=== PATIENT | female | born 1930 | race Caucasian/White ===

== ENCOUNTER 2016-10-13 10:50 | Emergency (ER) | payer MEDICARE, OTHER ==
[~2016-10-13] VITALS: Ht 160 cm; Wt 54.4 kg
[2016-10-13] MEDS ORDERED: DIPH25TA17 PO (11:06)
[2016-10-13] MEDS ORDERED: XANA0.5T PO (11:06)
[2016-10-13] MEDS ORDERED: AMLO10TA2 PO (11:06)
[2016-10-13] MEDS ORDERED: PERC10TA17 PO (11:06)
[2016-10-13] MEDS ORDERED: TRAM50TA2 PO (11:06)
[2016-10-13] MEDS ORDERED: NS 500 ML IV ONE (11:45)
[2016-10-13] MEDS ORDERED: ONDANSETRON 4MG/2ML VIAL (J2405) IV ONE (11:45)
[2016-10-13 12:45] LABS: BASO % 0.5 % (0.0-1.0); EOS # 0.3 K/mm3 (0.0-0.50); EOS % 3.4 % (0.0-3.0); LARGE UNSTAINED CELL # 0.1 K/mm3 (0.0-0.4); LARGE UNSTAINED CELL % 1.5 % (0.0-4.0); LYMPH % 10.7 % (24.0-44.0); MEAN CORPUSCULAR HEMOGLOBIN 30.5 pg (27.0-33.0); MEAN CORPUSCULAR HGB CONC 33.7 g/dl (32.0-36.5); MEAN CORPUSCULAR VOLUME 90.5 fl (80.0-96.0); MONO # 0.5 K/mm3 (0.0-0.8); MONO % 6.5 % (0.0-5.0); NEUTROPHILS # 6.4 K/mm3 (1.8-7.7); NEUTROPHILS % 77.4 % (36.0-66.0); PLATELET COUNT, AUTOMATED 215 k/mm3 (150-450); RED CELL DISTRIBUTION WIDTH 13.5 % (11.5-14.5); WHITE BLOOD COUNT 8.2 K/mm3 (4.0-10.0)
[2016-10-13 12:57] LABS: ALBUMIN 3.9 GM/DL (3.2-5.2); ALBUMIN/GLOBULIN RATIO 1.39 (1.00-1.93); ALKALINE PHOSPHATASE 101 U/L (45-117); ALT/SGPT 51 U/L (12-78); AMYLASE 37 U/L (25-115); ANION GAP 9 MEQ/L (8-16); AST/SGOT 45 U/L (15-37); BILIRUBIN,DIRECT 0.2 MG/DL (0.0-0.2); BILIRUBIN,TOTAL 0.4 MG/DL (0.2-1.0); BLOOD UREA NITROGEN 39 MG/DL (7-18); CALCIUM LEVEL 9.1 MG/DL (8.8-10.2); CARBON DIOXIDE LEVEL 27 MEQ/L (21-32); CHLORIDE LEVEL 105 MEQ/L (98-107); CREATININE FOR GFR 0.88 MG/DL (0.55-1.02); GLOMERULAR FILTRATION RATE > 60.0 (>32); GLUCOSE, FASTING 93 MG/DL (83-110); POTASSIUM SERUM 4.2 MEQ/L (3.5-5.1); SODIUM LEVEL 141 MEQ/L (136-145); TOTAL PROTEIN 6.7 GM/DL (6.4-8.2)
--- NOTE | 2016-10-13 13:58 | REP ---
Clinical: Abdominal pain and vomiting. Comparison: None. Findings: Right kidney demonstrates an extrarenal pelvis and grade IV/V hydronephrosis which may reflect chronic ureteropelvic junction obstruction. The kidneys are otherwise relatively normal in appearance and there are no renal or ureteral calculi, perinephric stranding, obvious cyst or mass lesion. Liver demonstrates compensatory biliary ductal dilatation secondary to prior cholecystectomy. Spleen, pancreas, and adrenal glands are relatively normal. 1.2 cm left adrenal adenoma noted. The enteric system demonstrates areas of prior surgery and reanastomosis and there is no evidence for acute obstruction or obvious inflammatory process. Few scattered sigmoid diverticula noted without acute diverticulitis. Pelvis demonstrates normal bladder and evidence for prior hysterectomy. No ascites. No free air. No obvious significant adenopathy. Atherosclerotic changes to the vasculature noted without aneurysm. Musculoskeletal structures demonstrate degenerative changes. Lung bases are clear. Impression: 1. Marked right hydronephrosis may reflect ureteropelvic junction obstruction. Kidneys are otherwise normal and without nephroureterolithiasis. 2. No evidence for bowel obstruction or acute inflammatory process. 3. Chronic changes as described above. Signed by Scot Reyes MD 10/13/2016 01:50 P
[2016-10-13 14:43] VITALS: BP 123/56
[2016-10-13] MEDS ORDERED: ZOFR4TAB3 PO (15:12)
== END 2016-10-13 15:26 | disposition home or self-care (01) ==
LOC: M ED 12:16
DX: N13.30 Unspecified hydronephrosis (principal); R11.2 Nausea with vomiting, unspecified; R19.7 Diarrhea, unspecified; Z88.0 Allergy status to penicillin; Z88.1 Allergy status to other antibiotic agents; Z79.899 Other long term (current) drug therapy; Z79.891 Long term (current) use of opiate analgesic; Z87.19 Personal history of other diseases of the digestive system

== ENCOUNTER → 2016-10-14 | Outpatient (REF) | payer MEDICARE, OTHER ==
[~2016-10-14] MED LIST: ADVI200T PO; AMLO10TA2 PO; ATEN50TA2 PO; DIPH2.5T14 PO; DIPH25TA17 PO; FLAG500T PO; LISI-538 PO; NORC10TA2 PO; ONDA4TAB6 SL; PANT40TA2 PO; PERC10TA17 PO; TRAM50TA2 PO; VITMTA PO; XANA0.5T PO; ZOFR20TA PO; ZOFR4TAB3 PO
== END ==
LOC: M LAB REF 09:14
PROVIDERS: ATTEND Physician Assistant Medical
DX: R19.7 Diarrhea, unspecified (principal)

== ENCOUNTER 2016-10-15 20:24 | Inpatient (IN) | payer MEDICARE, OTHER ==
[~2016-10-15] VITALS: Ht 160 cm; Wt 58.5 kg
[~2016-10-15 20:24] MED LIST changes: -ADVI200T PO; -ATEN50TA2 PO; -DIPH2.5T14 PO; -FLAG500T PO; -LISI-538 PO; -NORC10TA2 PO; -ONDA4TAB6 SL; -PANT40TA2 PO; -VITMTA PO; -ZOFR20TA PO
[2016-10-15] MEDS ORDERED: ATEN50TA2 PO (20:51)
[2016-10-15] MEDS ORDERED: DIPH2.5T14 PO (20:51)
[2016-10-15] MEDS ORDERED: PANT40TA2 PO ×2 (20:51→23:20)
[2016-10-15] MEDS: traMADol 50 MG TAB PO SCH (21:00)
[2016-10-15] MEDS: ALPRAZolam 0.25 MG TAB PO SCH (21:00)
[2016-10-15] MEDS ORDERED: ONDANSETRON 4MG/2ML VIAL (J2405) IV ONE (21:30)
[2016-10-15] MEDS ORDERED: NS 500 ML IV ONE (21:30)
[2016-10-15] MEDS ORDERED: metroNIDAZOLE 500 MG in APPROPRIATE DILUENT 1 EA IV ONE (21:30)
[2016-10-15 22:40] LABS: BASO % 0.6 % (0.0-1.0); EOS # 0.3 K/mm3 (0.0-0.50); EOS % 5.4 % (0.0-3.0); LARGE UNSTAINED CELL # 0.1 K/mm3 (0.0-0.4); LARGE UNSTAINED CELL % 1.6 % (0.0-4.0); LYMPH # 0.8 K/mm3 (1.5-4.5); LYMPH % 16.1 % (24.0-44.0); MEAN CORPUSCULAR HEMOGLOBIN 30.3 pg (27.0-33.0); MEAN CORPUSCULAR HGB CONC 32.9 g/dl (32.0-36.5); MONO # 0.3 K/mm3 (0.0-0.8); MONO % 5.3 % (0.0-5.0); NEUTROPHILS # 3.6 K/mm3 (1.8-7.7); PLATELET COUNT, AUTOMATED 203 k/mm3 (150-450); WHITE BLOOD COUNT 5.1 K/mm3 (4.0-10.0)
[2016-10-15] MEDS ORDERED: LABETALOL HCL 100 MG/20 ML VIAL IV STA (22:43)
[2016-10-15 23:04] LABS: ALBUMIN 3.7 GM/DL (3.2-5.2); ALBUMIN/GLOBULIN RATIO 1.23 (1.00-1.93); ALKALINE PHOSPHATASE 102 U/L (45-117); ALT/SGPT 35 U/L (12-78); ANION GAP 8 MEQ/L (8-16); AST/SGOT 22 U/L (15-37); BILIRUBIN,DIRECT < 0.1 MG/DL (0.0-0.2); BILIRUBIN,TOTAL 0.3 MG/DL (0.2-1.0); BLOOD UREA NITROGEN 18 MG/DL (7-18); CALCIUM LEVEL 8.7 MG/DL (8.8-10.2); CARBON DIOXIDE LEVEL 30 MEQ/L (21-32); CHLORIDE LEVEL 103 MEQ/L (98-107); CREATININE FOR GFR 0.58 MG/DL (0.55-1.02); GLOMERULAR FILTRATION RATE > 60.0 (>32); GLUCOSE, FASTING 114 MG/DL (83-110); POTASSIUM SERUM 3.5 MEQ/L (3.5-5.1); SODIUM LEVEL 141 MEQ/L (136-145); TOTAL PROTEIN 6.7 GM/DL (6.4-8.2)
[2016-10-15] MEDS ORDERED: NORC10TA2 PO (23:19)
[2016-10-15] MEDS ORDERED: VITMTA PO (23:20)
[2016-10-15] MEDS ORDERED: ADVI200T PO (23:20)
[2016-10-15] MEDS ORDERED: ONDA4TAB6 SL (23:20)
[2016-10-15] MEDS ORDERED: IBUPROFEN 400 MG TAB PO PRN (23:45)
[2016-10-15] MEDS ORDERED: MORPHINE 2 MG/ML 1ML SYRINGE IV PRN (23:45)
[2016-10-15] MEDS ORDERED: PERCOCET 5MG/325MG TAB PO PRN ×2 (23:45)
[2016-10-16 01:00] VITALS: BP 175/55
[2016-10-16] MEDS: zolPIDEM TARTRATE 5 MG TAB PO PRN ×2 (01:27→22:05)
[2016-10-16] MEDS: VANCOMYCIN ORAL SOL 250MG/5ML ORAL SYRINGE PO SCH ×3 (02:13→11:19)
[2016-10-16 06:00] VITALS: BP 165/55
[2016-10-16 06:30] LABS: MEAN CORPUSCULAR HEMOGLOBIN 29.8 pg (27.0-33.0); MEAN CORPUSCULAR HGB CONC 33.1 g/dl (32.0-36.5); MEAN CORPUSCULAR VOLUME 90.1 fl (80.0-96.0); RED CELL DISTRIBUTION WIDTH 12.8 % (11.5-14.5)
[2016-10-16 06:47] LABS: ANION GAP 6 MEQ/L (8-16); BLOOD UREA NITROGEN 12 MG/DL (7-18); CALCIUM LEVEL 8.5 MG/DL (8.8-10.2); CARBON DIOXIDE LEVEL 30 MEQ/L (21-32); CHLORIDE LEVEL 108 MEQ/L (98-107); CREATININE FOR GFR 0.48 MG/DL (0.55-1.02); GLOMERULAR FILTRATION RATE > 60.0 (>32); GLUCOSE, FASTING 97 MG/DL (83-110); POTASSIUM SERUM 3.2 MEQ/L (3.5-5.1); SODIUM LEVEL 144 MEQ/L (136-145)
[2016-10-16 07:09] LABS: MAGNESIUM LEVEL 1.9 MG/DL (1.8-2.4)
[2016-10-16] MEDS ORDERED: POTASSIUM CHLORIDE 10 MEQ SR TABLET PO ONE ×2 (08:30→10:30)
[2016-10-16] MEDS ORDERED: MAG SULF 1GM/100ML (MAG RUN) 1 GM in APPROPRIATE DILUENT 1 EA IV ONE (08:30)
[2016-10-16] MEDS ORDERED: LISINOPRIL 10 MG TAB PO SCH (09:00)
[2016-10-16] MEDS ORDERED: PANTOPRAZOLE 40MG INJ (PROTONIX) (C9113) IV SCH (09:00)
[2016-10-16] MEDS: MULTIVITAMINS/MINERALS THERAP 1 TAB PO SCH (09:40)
[2016-10-16] MEDS: ENOXAPARIN 40 MG/0.4 ML SYRINGE (J1650) SC SCH (09:40)
[2016-10-16] MEDS: traMADol 50 MG TAB PO SCH ×2 (09:45→21:21)
[2016-10-16] MEDS: ATENOLOL 50 MG TAB PO SCH (09:46)
[2016-10-16] MEDS: amLODIPine 10 MG TAB PO SCH (09:47)
[2016-10-16] MEDS: metroNIDAZOLE (FLAGYL) 500 MG TAB PO SCH ×2 (13:59→21:21)
[2016-10-16 14:00] VITALS: BP 170/75
--- NOTE | 2016-10-16 15:52 | IPNPDOC ---
Text Note Date of Service The patient was seen on 10/16/16. NOTE Subjective: Pt states N/V/abd pain/diarrhea have resolved. Objective: Vitals: (see below) General: No acute distress, laying comfortably in bed. HEENT: Moist mucous membranes. Neck: No JVD or lymphadenopathy Cardiac: RRR, No murmurs Pulm: Clear to auscultation b/l. No wheezing, rhonchi Abd: NT/ND + BS Ext: No edema or cyanosis Labs (see below) Images: CT abd/pelvis 10/13/16 1. Marked right hydronephrosis may reflect ureteropelvic junction obstruction. Kidneys are otherwise normal and without nephroureterolithiasis. 2. No evidence for bowel obstruction or acute inflammatory process. 3. Chronic changes as described above. Assessment/Plan 1. Mild C. Diff colitis - improving. No leukocytosis or renal impairment. Change vanco po to flagyl as this is her first episode of mild c. diff. Advance diet as tolerated. CT abd/pelvis (see above). ? recent abx. D/c PPI. 2. HTN - uncontrolled. SBP 200s on presentation. Cont amlodipine. Add lisinopril. 3. Hypokalemia - replaced. 4. Right Hydronephrosis - appears chronic. Will need outpt urology f/u. Renal function preserved. CT abd/pelvis in August with similar findings. 5. H/o colectomy with ostomy reversal. DVT prophy: Lovenox Dispo: Plan to d/c in the next 24 hr if tolerating diet. VS,Fishbone, I+O VS, Fishbone, I+O Laboratory Tests 10/15/16 22:26 Red Blood Count 3.87 L, Mean Corpuscular Volume 92.0, Mean Corpuscular Hemoglobin 30.3, Mean Corpuscular Hemoglobin Concent 32.9, Red Cell Distribution Width 13.0, Neutrophils (%) (Auto) 71.0 H, Lymphocytes (%) (Auto) 16.1 L, Monocytes (%) (Auto) 5.3 H, Eosinophils (%) (Auto) 5.4 H, Basophils (%) (Auto) 0.6, Neutrophils # (Auto) 3.6, Lymphocytes # (Auto) 0.8 L, Monocytes # ( Auto) 0.3, Eosinophils # (Auto) 0.3, Basophils # (Auto) 0.0 10/16/16 06:16 Red Blood Count 3.66 L, Mean Corpuscular Volume 90.1, Mean Corpuscular Hemoglobin 29.8, Mean Corpuscular Hemoglobin Concent 33.1, Red Cell Distribution Width 12.8 10/16/16 06:17 Calcium Level 8.5 L Vital Signs Date Time Temp Pulse Resp B/P (MAP) Pulse Ox O2 Delivery O2 Flow Rate FiO2 10/16/16 14:00 97.8 64 18 170/75 (106) 96 Room Air I&O- Last 24 Hours up to 6 AM 10/16/16 05:59 Intake Total 0 ml Output Total 200 ml Balance -200 ml NATALIA OQUENDO MD October 16, 2016 15:52
[2016-10-16] MEDS: ONDANSETRON 4MG/2ML VIAL (J2405) IV PRN (19:25)
[2016-10-16] MEDS: ALPRAZolam 0.25 MG TAB PO SCH (21:21)
--- NOTE | 2016-10-16 21:59 | HPE ---
DATE OF ADMISSION: 10/15/2016 PRIMARY CARE PHYSICIAN: Based in [place] HISTORY OF PRESENT ILLNESS: The patient is an 86-year-old female with a history of an ostomy with reversal 5 years ago who presented to the emergency room two days ago with diarrhea as well as nausea and vomiting. At the time, CT scan of the abdomen and pelvis revealed right-sided hydronephrosis with normal labs. A stool study was obtained, and the patient was discharged home; however, she called and followed up today with the results of her stool study that it was positive for Clostridium (C) difficile, which prompted her to present back to the emergency room today. At the present time, the patient tells she has a "tummy ache." She tells me that she has not had any bowel movements today, but she has been taking a significant amount of Pepto-Bismol, and she has actually been up vomiting. She denies chest pain, shortness of breath, fevers, chills. She denies any sick contacts or recent antibiotic use. PAST MEDICAL HISTORY: 1. Ostomy with reversal. 2. Hypertension. 3. Anxiety. 4. Gastroesophageal reflux disease. 5. Chronic headaches. 6. Osteoarthritis. PAST SURGICAL HISTORY: Ostomy with reversal. ALLERGIES: CIPROFLOXACIN, PENICILLIN. SOCIAL HISTORY: The patient lives alone in [place] and sees her doctor there regularly, and although she has been having symptoms intermittently for the last several weeks, she has not discussed them with anybody. Often has minimized her symptoms. She denies tobacco, alcohol, and illicit drug use. HOME MEDICATIONS: - diphenoxylate and atropine - Lomotil 2.5/0.25 mg daily - Zofran 4 mg sublingually every 8 hours as needed nausea - Protonix 40 mg daily - [place] 10/325 every 4 hours as needed pain - Xanax 0.5 mg at bedtime - Norvasc 10 mg daily - atenolol 50 mg daily - ibuprofen 400 mg every 8 hours as needed for headache - multivitamin one tablet daily - tramadol 50 mg by mouth twice a day REVIEW OF SYSTEMS: Negative other than history of present illness (HPI). FAMILY HISTORY: Noncontributory. PHYSICAL EXAMINATION: Temperature 97.4, pulse 72, respiratory rate 16, blood pressure (BP) 208/92, oxygen saturation 96% on room air. GENERAL: She is a very elderly female. She is lying in bed. She does not appear to be in any acute distress. She is accompanied by her daughter. HEENT: She has mildly dry mucous membranes. Cranial nerves II-XII are grossly intact. No elevation in central venous pressure (CVP). CARDIOVASCULAR: S1, S2 are regular without any distant heart sounds appreciated. RESPIRATORY: Clear to auscultation bilaterally. ABDOMEN: Bowel sounds present. The abdomen is soft. There is diffuse tenderness to palpation. EXTREMITIES: No clubbing or cyanosis. There is trace edema bilaterally. LABORATORY STUDIES: WBC 5.1, hemoglobin 11.7, hematocrit 35.6, platelet count 203. Chemistry panel: Sodium 141, potassium 3.5, chloride 103, bicarbonate 30, BUN 18 , creatinine 0.5. Lipase within normal limits. Blood cultures were obtained. IMAGING: The patient did have a CT scan on October 13, two days ago, that revealed marked right hydronephrosis. No evidence of bowel obstruction or acute inflammatory process. Chronic changes. MICROBIOLOGY: The patient did have stool culture positive from October 14 for Clostridium (C) difficile. ASSESSMENT AND PLAN: This is an 86-year-old female with Clostridium (C) difficile colitis. 1. C. difficile colitis. Patient has chronic diarrhea and usually takes Lomotil and self-medicates with Pepto-Bismol pretty often, and as such, she has been doing this for several weeks. Likely has clouded the diagnosis up until this point. At this time, I will start the patient on intravenous (IV) Zofran, switch her proton pump inhibitor (PPI) to IV, and start her on by mouth vancomycin every 6 hours. I will continue to monitor her. I will stop her Lomotil and avoid any further Pepto-Bismol. Continue to monitor her. The patient does have a flight scheduled to leave [place] and return to [place] on Friday. If her symptoms are unable to be approved by the nurse, she should likely cancel her flight. For the time being, I will keep her nothing by mouth. I will not provide her with IV fluids, as she has some trace edema, and she does not appear to be dry clinically or by her labs. 2. Hypertension. Patient has suffered from significant anxiety. She is due for her Xanax at this time. She was given one dose of labetalol in the emergency room (ER). I suspect this is more than likely related to her anxiety being in the ER and being hospitalized. Continue with her home antihypertensives. I will also provide her with Ambien as needed for sleep. 3. Osteoarthritis. Continue with chronic pain medications, nonsteroidal anti-inflammatory drugs (NSAIDs), and Percocet. 4. Gastroesophageal reflux disease. I will make her PPI IV while she is in the hospital. 5. Chronic headaches. Continue with NSAIDs and tramadol. 6. Deep vein thrombosis (DVT) prophylaxis. Patient will be on Lovenox. DISPOSITION: The patient is admitted to the medical/surgical floor under Dr. Bertrand's care, who will continue following the patient at 7 a.m. 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 RITIKA
[2016-10-16 22:00] VITALS: BP 158/89
[2016-10-17] MEDS: metroNIDAZOLE (FLAGYL) 500 MG TAB PO SCH ×2 (05:54→13:09)
[2016-10-17 06:00] VITALS: BP 166/83
[2016-10-17 06:42] LABS: MEAN CORPUSCULAR HEMOGLOBIN 30.5 pg (27.0-33.0); MEAN CORPUSCULAR HGB CONC 33.3 g/dl (32.0-36.5); MEAN CORPUSCULAR VOLUME 91.4 fl (80.0-96.0); RED CELL DISTRIBUTION WIDTH 13.3 % (11.5-14.5); WHITE BLOOD COUNT 4.7 K/mm3 (4.0-10.0)
[2016-10-17 06:58] LABS: ANION GAP 5 MEQ/L (8-16); BLOOD UREA NITROGEN 11 MG/DL (7-18); CALCIUM LEVEL 8.4 MG/DL (8.8-10.2); CARBON DIOXIDE LEVEL 30 MEQ/L (21-32); CHLORIDE LEVEL 105 MEQ/L (98-107); CREATININE FOR GFR 0.63 MG/DL (0.55-1.02); GLOMERULAR FILTRATION RATE > 60.0 (>32); GLUCOSE, FASTING 95 MG/DL (83-110); POTASSIUM SERUM 3.9 MEQ/L (3.5-5.1); SODIUM LEVEL 140 MEQ/L (136-145)
[2016-10-17] MEDS: traMADol 50 MG TAB PO SCH (08:40)
[2016-10-17] MEDS: ENOXAPARIN 40 MG/0.4 ML SYRINGE (J1650) SC SCH (08:40)
[2016-10-17] MEDS: amLODIPine 10 MG TAB PO SCH (08:41)
[2016-10-17 08:42] VITALS: BP 166/83
[2016-10-17] MEDS: ATENOLOL 50 MG TAB PO SCH (08:42)
[2016-10-17] MEDS: MULTIVITAMINS/MINERALS THERAP 1 TAB PO SCH (08:42)
[2016-10-17] MEDS ORDERED: LISI-538 PO (08:54)
[2016-10-17] MEDS ORDERED: FLAG500T PO (08:54)
[2016-10-17] MEDS ORDERED: LISINOPRIL 20 MG TAB PO SCH (09:00)
[2016-10-17] MEDS ORDERED: DOCUSATE SODIUM 100 MG CAP PO SCH (09:00)
[2016-10-17 09:25] VITALS: BP_SYST 145; BP_SYST 148; BP_SYST 150; BP_DIAS 55; BP_DIAS 59; BP_DIAS 62
[2016-10-17] MEDS: ONDANSETRON 4MG/2ML VIAL (J2405) IV PRN (11:08)
[2016-10-17] MEDS ORDERED: ZOFR20TA PO (11:22)
--- NOTE | 2016-10-17 14:55 | DS.PDOC ---
Discharge Summary General Date of Admission October 15, 2016 at 23:38 Date of Discharge 10/17/16 Attending Physician: NATALIA OQUENDO MD Discharge Summary PROCEDURES PERFORMED DURING STAY: None. ADMITTING/DISCHARGE DIAGNOSES: 1. Mild C. Diff 2. HTN 3. Hypokalemia 4. Right Hydronephrosis 5. H/o colectomy with ostomy s/p reversal 6. Anxiety 7. GERD 8. Chronic [place] 9. OA COMPLICATIONS/CHIEF COMPLAINT: C. Difficile Colitis. HISTORY OF PRESENT ILLNESS/HOSPITAL COURSE: . His a 86-year-old female past history of hypertension, colectomy status post ostomy with reversal, anxiety who presents complaining of nausea/vomiting/ abdominal pain. Patient didn't complaining of abdominal pain and diarrhea for quite some time now and was noted to be positive for C. difficile. Since the patient was admitted, the nausea and vomiting have significantly improved. The patient did tolerate her dinner last night. Patient has preserved renal function with no leukocytosis. Patient is tolerating Flagyl which she will continue for 9 additional days. In addition patient was noted to have right hydronephrosis on her CT abdomen pelvis. This is comparable to the CT abdomen and pelvis that was done in [place] in August. Patient will need to have her primary care physician in [place] refer her to a urologist as she will be going back to [place] this weekend. The patient was also noted to be hypertensive and was started on lisinopril which was increased to 20 mg daily. Prescription sent to the pharmacy. Patient also did well physical therapy. Orthostatics negative. Patient hemodynamic stable and ready to be discharged home with PO Abx. Return to ED if symptoms recur. Letter given in case she is unable to take her flight back to [place]. DISCHARGE MEDICATIONS: Please see below. ALLERGIES: Please see below. PHYSICAL EXAMINATION ON DISCHARGE: Vitals: (see below) General: No acute distress, laying comfortably in bed. HEENT: Moist mucous membranes. Neck: No JVD or lymphadenopathy Cardiac: RRR, No murmurs Pulm: Clear to auscultation b/l. No wheezing, rhonchi Abd: NT/ND + BS Ext: No edema or cyanosis LABORATORY DATA: Please see below. IMAGING: Labs (see below) Images: CT abd/pelvis 10/13/16 1. Marked right hydronephrosis may reflect ureteropelvic junction obstruction. Kidneys are otherwise normal and without nephroureterolithiasis. 2. No evidence for bowel obstruction or acute inflammatory process. 3. Chronic changes as described above. PROGNOSIS: Fair ACTIVITY: As tolerated. DIET: Low sodium DISCHARGE PLAN/DISPOSITION: 01 Home, Self-Care. DISCHARGE INSTRUCTIONS: 1. F/u with PCP in 1-2 weeks, who will need to refer patient to Urologist in [place]. DISCHARGE CONDITION: Stable. TIME SPENT ON DISCHARGE: Greater than 30 minutes. Vital Signs/I&Os Vital Signs Date Time Temp Pulse Resp B/P (MAP) Pulse Ox O2 Delivery O2 Flow Rate FiO2 10/17/16 09:25 150/62 (91) 10/17/16 08:42 68 10/17/16 08:40 18 Room Air 10/17/16 06:00 97.5 93 I&O- Last 24 Hours up to 6 AM 10/17/16 06:00 Intake Total 1560 ml Balance 1560 ml Laboratory Data Labs 24H Laboratory Tests 2 10/17/16 06:18: Anion Gap 5L, Glomerular Filtration Rate > 60.0, Blood Urea Nitrogen 11, Creatinine 0.63, Sodium Level 140, Potassium Level 3.9#, Chloride Level 105, Carbon Dioxide Level 30, Calcium Level 8.4L CBC/BMP Laboratory Tests 10/17/16 06:18 Red Blood Count 3.71 L, Mean Corpuscular Volume 91.4, Mean Corpuscular Hemoglobin 30.5, Mean Corpuscular Hemoglobin Concent 33.3, Red Cell Distribution Width 13.3, Calcium Level 8.4 L Microbiology Microbiology 10/15/16 Blood Culture - Preliminary, Resulted No growth after 24 hours . All specim... 10/15/16 Blood Culture - Preliminary, Resulted No growth after 24 hours . All specim... Discharge Medications Scheduled Alprazolam (Xanax) 0.5 Mg Tab, 0.5 MG PO QHS, (Reported) Amlodipine Besylate (Amlodipine Besylate) 10 Mg Tab, 10 MG PO DAILY, (Reported) Atenolol (Atenolol) 50 Mg Tab, 50 MG PO DAILY, (Reported) Diphenoxylate/Atropine (Diphenoxylate/Atropine 2.5-0.025 mg) 1 Ea Tab, 1 TAB PO BID, (Reported) Lisinopril (Lisinopril) 20 Mg Tab, 20 MG PO DAILY Metronidazole (Flagyl) 500 Mg Tab, 500 MG PO Q8H Multivitamins *[facility] STOCKED* (Thera M Plus *[facility] STOCK[facility]*) 1 Tab Tab, 1 TAB PO DAILY, (Reported) Tramadol HCl (Tramadol HCl) 50 Mg Tab, 50 MG PO BID, (Reported) Scheduled PRN Acetaminophen/Hydrocodone ([place] 10-325 mg) 1 Tab Tab, 1 TAB PO Q4H PRN for PAIN , (Reported) Ibuprofen (Advil) 200 Mg Tab, 400 MG PO Q8H PRN for HEADACHE, (Reported) Ondansetron (Ondansetron Odt) 4 Mg Tab, 4 MG SL Q8H PRN for NAUSEA, (Reported) Ondansetron HCl (Zofran) 4 Mg Tab, 4 MG PO Q6HP PRN for NAUSEA Allergies Coded Allergies: Ciprofloxacin (Verified Allergy, Unknown, 10/13/16) Penicillins (Verified Allergy, Unknown, 10/13/16) NATALIA OQUENDO MD Oct 17, 2016 14:55
== END 2016-10-17 14:00 | disposition home or self-care (01) | DRG 372 ==
LOC: M ED 23:11 → M ED INP 23:38 → M MS5PR 10-16 01:01
PROVIDERS: ADMIT Internal Medicine; ATTEND Internal Medicine
DX: A04.7 Enterocolitis due to Clostridium difficile (principal); N13.30 Unspecified hydronephrosis; I10 Essential (primary) hypertension; F41.9 Anxiety disorder, unspecified; K21.9 Gastro-esophageal reflux disease without esophagitis; E87.6 Hypokalemia; R51 Headache; M19.90 Unspecified osteoarthritis, unspecified site; Z79.891 Long term (current) use of opiate analgesic; Z79.899 Other long term (current) drug therapy; Z79.1 Long term (current) use of non-steroidal anti-inflammatories (NSAID); Z87.19 Personal history of other diseases of the digestive system; Z88.0 Allergy status to penicillin; Z88.1 Allergy status to other antibiotic agents

== ENCOUNTER 2016-11-27 08:44 | Inpatient (IN) | payer MEDICARE, OTHER ==
[~2016-11-27] VITALS: Ht 160 cm; Wt 54.2 kg
[~2016-11-27 08:44] MED LIST changes: +ADVI200T PO; +ATEN50TA2 PO; +DIPH2.5T14 PO; +FLAG500T PO; +LISI-538 PO; +NORC10TA21 PO; +ONDA4TAB6 SL; +PANT40TA2 PO; -PERC10TA17 PO; +PERC10TA26 PO; +VITMTA PO; +ZOFR20TA PO
[2016-11-27] MEDS: traMADol 50 MG TAB PO SCH ×2 (09:00→21:01)
[2016-11-27] MEDS ORDERED: ONDANSETRON 4MG/2ML VIAL (J2405) IV ONE (09:30)
[2016-11-27] MEDS ORDERED: GASTROGRAFIN SOLUTION 30ML (Q9963) As Ordered ONE (09:47)
[2016-11-27] MEDS ORDERED: GASTROGRAFIN SOLUTION 30ML (Q9963) PO ONE ×2 (09:50→10:20)
[2016-11-27 10:39] LABS: BASO % 0.2 % (0.0-1.0); EOS % 0.2 % (0.0-3.0); LARGE UNSTAINED CELL # 0.1 K/mm3 (0.0-0.4); LARGE UNSTAINED CELL % 0.4 % (0.0-4.0); LYMPH # 0.7 K/mm3 (1.5-4.5); LYMPH % 4.3 % (24.0-44.0); MEAN CORPUSCULAR HEMOGLOBIN 29.9 pg (27.0-33.0); MEAN CORPUSCULAR HGB CONC 33.4 g/dl (32.0-36.5); MEAN CORPUSCULAR VOLUME 89.6 fl (80.0-96.0); MONO # 0.5 K/mm3 (0.0-0.8); MONO % 3.7 % (0.0-5.0); NEUTROPHILS # 13.3 K/mm3 (1.8-7.7); NEUTROPHILS % 91.2 % (36.0-66.0); PLATELET COUNT, AUTOMATED 265 k/mm3 (150-450); RED CELL DISTRIBUTION WIDTH 13.5 % (11.5-14.5); WHITE BLOOD COUNT 14.6 K/mm3 (4.0-10.0)
[2016-11-27] MEDS: NS 1,000 ML IV SCH ×2 (11:00→23:15)
[2016-11-27 11:01] LABS: ANION GAP 9 MEQ/L (8-16); BLOOD UREA NITROGEN 49 MG/DL (7-18); CALCIUM LEVEL 10.3 MG/DL (8.8-10.2); CARBON DIOXIDE LEVEL 30 MEQ/L (21-32); CHLORIDE LEVEL 98 MEQ/L (98-107); CHOLESTEROL LEVEL 170 MG/DL (<200); CREATININE FOR GFR 1.48 MG/DL (0.55-1.02); GLOMERULAR FILTRATION RATE 35.6 (>32); GLUCOSE, FASTING 161 MG/DL (83-110); POTASSIUM SERUM 3.7 MEQ/L (3.5-5.1); SODIUM LEVEL 137 MEQ/L (136-145); TRIGLYCERIDES LEVEL 70 MG/DL (<150)
[2016-11-27 12:02] LABS: ALBUMIN 3.7 GM/DL (3.2-5.2); ALBUMIN/GLOBULIN RATIO 1.09 (1.00-1.93); ALKALINE PHOSPHATASE 91 U/L (45-117); ALT/SGPT 26 U/L (12-78); AST/SGOT 27 U/L (15-37); BILIRUBIN,DIRECT < 0.1 MG/DL (0.0-0.2); BILIRUBIN,TOTAL 0.5 MG/DL (0.2-1.0); TOTAL PROTEIN 7.1 GM/DL (6.4-8.2)
[2016-11-27] MEDS: FIDAXOMICIN 200 MG TAB (DIFICID) PO SCH ×2 (12:04→21:02)
[2016-11-27] MEDS ORDERED: ONDANSETRON 4MG/2ML VIAL (J2405) IV PRN (12:15)
[2016-11-27] MEDS ORDERED: ACETAMINOPHEN TAB 650MG DOSE (2X325MG) PO PRN (12:15)
--- NOTE | 2016-11-27 12:23 | REP ---
CT study of the abdomen and pelvis without IV but with oral contrast: History: Nausea vomiting. Bloody diarrhea. Comparison CT study October 13, 2016. 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 No focal hepatic or splenic lesion is seen. A large hiatal hernia is again noted. No adrenal lesion is observed. The left kidney is unremarkable. The right kidney is again showing moderate to marked hydronephrosis with dilated renal pelvis. This has a rounded configuration consistent with ureteropelvic junction obstruction as before. The patient is status post left colectomy with a distal colonic anastomosis. No large or small bowel obstruction is appreciated. Gallbladder and uterus is surgically absent as well. There is mild mural thickening involving the distal ileal small bowel loops, question enteritis. This is seen to some degree in the colon as well. There is no evidence of abscess, mass, or free intraperitoneal air. Impression: 1. Status post colon resection and reanastomosis. 2. Enteritis pattern in the small and large bowel with mild mural thickening. No obstruction. 3. Evidence of a right-sided ureteropelvic junction obstruction with moderate right-sided hydronephrosis. 4. Large hiatal hernia. Signed by Javier Starkey MD 11/27/2016 02:03 P
[2016-11-27] MEDS: SUCRALFATE SUSP 1GM/10ML UD PO SCH ×3 (13:00→21:01)
[2016-11-27] MEDS ORDERED: BISO5TAB5 PO (13:10)
[2016-11-27] MEDS ORDERED: VANC125C2 PO (13:10)
[2016-11-27] MEDS ORDERED: VITA1CAP2 PO (13:12)
[2016-11-27] MEDS ORDERED: MIRT15TA3 PO (13:12)
[2016-11-27] MEDS ORDERED: LIDO5DIS41 TD (13:12)
[2016-11-27] MEDS ORDERED: TRAZ50TA11 PO (13:12)
[2016-11-27] MEDS ORDERED: FLOR250C PO (13:12)
[2016-11-27] MEDS ORDERED: LISI-538 PO (13:14)
[2016-11-27 15:04] VITALS: BP 153/68
--- NOTE | 2016-11-27 16:46 | HPEPDOC ---
General Date of Admission 11/27/16 Primary Care Physician: INÉS GUPTA Attending Physician: NIKKI AVINA MD Chief Complaint The patient is a 86-year-old female admitted with a reason for visit of Vomiting. Source: Patient, Family, RN notes reviewed, Old records Exam Limitations: No limitations Timing/Duration: 24 hours Associated Symptoms: Chills, Headaches, Nausea, Vomiting, Weakness, Dizziness History of Present Illness Ms. Brooks is an 86 year old female who presents from home to [facility] with nausea, vomiting, and bloody diarrhea. She is accompanied by her daughter. Past medical history is significant for chronic back pain, recurrent Clostridium difficile infection, hypertension, anxiety, and gastric ulcer. Ms. Brooks reports that her diarrhea started last evening at 8pm. Dinner time meal consisted of meatloaf with potatoes. She alternated between diarrhea and vomiting. Ms. Brooks has had persistent diarrhea secondary to C. difficile infection, but it had been improving until last evening. The diarrhea has been constant. Patient reports that she was able to get back to sleep at approximately midnight, but was up again at 2am with diarrhea. This time it was bright red blood per rectum. Patient also reports multiple episodes of vomiting. The initial emesis contained food, but then it transitioned to bile- colored, and eventually the emesis was brown/chocolate colored. Patient admits to diffuse crampy abdominal pain. She is unable to state if the abdominal pain radiates to her back as she has chronic back pain and is unable to distinguish if it is just isolated back pain or radiating from her abdomen. She admits to left-sided sharp abdominal pain. Patient reports that bowel movements both relieve and worsen abdominal pain. Admits to chills, night sweats, but without fever. She reports a single episode palpitations that have since subsided. On the way to the hospital the patient reported a frontal headache, but that has since dissipated. Admits to a runny nose with post-nasal drip. Admits to some intermittent shortness of breath. Admits to urinary frequency with dysuria or hematuria. Denies sore throat, epistaxis, acute vision or hearing changes, difficulty swallowing, chest pain, numbness, tingling, swelling. Prior admission to [facility] was from 10/15-10/17 where she presented with nausea/vomiting/abdominal pain. Patient had complained of abdominal pain and diarrhea for quite some time now and was noted to be positive for C. difficile. Since the patient was admitted, the nausea and vomiting had significantly improved. The patient tolerated meals. Patient has preserved renal function with no leukocytosis. Patient tolerated Flagyl which was prescribed for an 9 additional days. In addition patient was noted to have right hydronephrosis on her CT abdomen pelvis. This is comparable to the CT abdomen and pelvis that was done in [place] in August. Patient will need to have her primary care physician in [place] refer her to a urologist as she will be going back to [place] this weekend. The patient was also noted to be hypertensive and was started on lisinopril which was increased to 20 mg daily. Prescription sent to the pharmacy. Patient also did well physical therapy. Orthostatics negative. Patient hemodynamic stable and was discharged home with PO Abx. Return to ED if symptoms recur. Letter given in case she is unable to take her flight back to [place]. Patient was admitted under hospitalist service and gastroenterology was consulted. Home Medications Scheduled Amlodipine Besylate (Amlodipine Besylate) 10 Mg Tab, 10 MG PO DAILY, (Reported) Bisoprolol Fumarate (Bisoprolol Fumarate) 5 Mg Tab, 2.5 MG PO QHS, (Reported) Cholecalciferol (Vitamin D-3) 1,000 Unit Cap, 2,000 UNIT PO DAILY, (Reported) Lidocaine (Lidoderm) 5 % Dis, 1 PATCH TD DAILY, (Reported) Lisinopril (Lisinopril) 20 Mg Tab, 20 MG PO DAILY, (Reported) Mirtazapine (Mirtazapine) 15 Mg Tab, 15 MG PO QHS, (Reported) Tramadol HCl (Tramadol HCl) 50 Mg Tab, 50 MG PO Q8H, (Reported) Trazodone HCl (Trazodone HCl) 50 Mg Tab, 50 MG PO QHS, (Reported) Vancomycin Hcl (Vancomycin HCl) 125 Mg Cap, 125 MG PO Q6H, (Reported) Yeast (S. Boulardii)(S. Cerevi (Florastor) 250 Mg Cap, 250 MG PO BID, (Reported) Scheduled PRN Acetaminophen/Hydrocodone ([place] 10-325 mg) 1 Tab Tab, 1 TAB PO Q4H PRN for PAIN , (Reported) Ondansetron (Ondansetron Odt) 4 Mg Tab, 4 MG SL Q8H PRN for NAUSEA, (Reported) Allergies Coded Allergies: Ciprofloxacin (Verified Allergy, Unknown, 10/13/16) Penicillins (Verified Allergy, Unknown, 10/13/16) Past Medical History Medical History 1. Chronic back pain 2. Recurrent Clostridium difficile 3. Hypertension 4. Anxiety 5. Gastric ulcer Surgical History 1. Upper endoscopy ([place], [place]) 2. Colonoscopy ([place]) 3. Cholecystectomy 4. Colostomy with reversal ([place], [place]) 5. Tonsillectomy 6. Left breast biopsy - benign 7. Appendectomy 8. 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 Domestic travel No pets Review of Symptoms Other systems CONSTITUTIONAL: admits to chills, night sweats, weakness; denies fever EYES: denies acute changes to vision, including blurry vision, diplopia ENT: admits to frontal headache, runny nose, post-nasal drainage; denies dysphagia, sinus congestion, epistaxis SKIN: denies rash, lesions PULMONARY: denies cough, dyspnea, pleuritic chest pain CARDIOVASCULAR: admits to a single episode of palpitations, lightheadedness; denies chest pain, orthopnea, PND GASTROINTESTINAL: admits to nausea, vomiting, crampy and sharp abdominal pain, diarrhea, hematochezia GENITOURINARY: denies dysuria, urinary frequency, urinary urgency, hematuria HEMATOLOGIC: denies bruising, excessive bleeding ENDOCRINE: denies polydipisa, polyuria MUSCULOSKELETAL: admits to weakness, back pain NEUROLOGICAL: admits to weakness; denies change in speech PSYCH: admits to anxiety Physical Examination General Exam: Positive: Alert, Cooperative Eye Exam: Positive: PERRLA, Conjunctiva & lids normal, EOMI, Negative: Sclera icteric ENT Exam: Positive: Atraumatic, Pharynx Normal, Tongue Midline, Nares Patent, Pinna Normal, Negative: Mucous membr. moist/pink (lips are somewhat dry), Pharyngeal Edema Neck Exam: Positive: Supple, +2 carotid pulse wo bruit, Negative: JVD, thyromegaly, Lymphadenopathy Chest Exam: Positive: Clear to auscultation, Normal air movement, Negative: Rales, Rhonchi, Wheezing Heart Exam: Positive: Rate Normal, Regular Rhythm, Normal S1, Normal S2, Negative: Gallops, Murmurs, Rubs Telemetry: Positive: Sinus Abdomen Exam: Positive: BS Hyperactive, Soft, Tenderness, Other (SHILPA: rectal tone intact, skin tags and external hemorrhoids noted, no active bleeding noted , rectal mucosa smooth without ridges or obstructions noted), Negative: Hepatospenomegaly, Mass, Hernia Extremity Exam: Positive: Normal pulses, Negative: Clubbing, Cyanosis, Edema, Tenderness, Swelling Skin Exam: Negative: Nl turgor and temperature, Rash, Breakdown, Lesion, Pruritus Neuro Exam: Positive: Normal Speech, Strength at 5/5 X4 ext, Cranial Nerves 3- 12 NL Psych Exam: Positive: Oriented x [address] abdomen and pelvis with PO contrast IMPRESSION: 1. Status post colon resection and reanastomosis. 2. Enteritis pattern in the small and large bowel with mild mural thickening. No obstruction. 3. Evidence of a right-sided ureteropelvic junction obstruction with moderate right-sided hydronephrosis. 4. Large hiatal hernia. Vital Signs Vital Signs Date Time Temp Pulse Resp B/P (MAP) Pulse Ox O2 Delivery O2 Flow Rate FiO2 11/27/16 08:45 99.1 92 18 144/69 (94) 95 Room Air Height (in): 63 Weight (kg): 53.5 BMI (kg): 20.9 Laboratory Data Labs 24H Laboratory Tests 2 11/27/16 09:24: Lactic Acid Level 1.7 11/27/16 10:21: Anion Gap 9, Glomerular Filtration Rate 35.6, Calcium Level 10.3H, Triglycerides Level 70, LDL Cholesterol 77.0, Total Cholesterol 170, Non-HDL Cholesterol (LDL + VLDL) 91, Total HDL Cholesterol 79, Cholesterol/HDL Ratio 2.151, Lipase 85 11/27/16 10:22: White Blood Count 14.6H, Red Blood Count 3.91L, Hemoglobin 11.7L, Hematocrit 35.1L, Mean Corpuscular Volume 89.6, Mean Corpuscular Hemoglobin 29.9, Mean Corpuscular Hemoglobin Concent 33.4, Red Cell Distribution Width 13.5, Platelet Count 265, Neutrophils (%) (Auto) 91.2H, Lymphocytes (%) (Auto) 4.3L, Monocytes (%) (Auto) 3.7, Eosinophils (%) (Auto) 0.2, Basophils (%) (Auto) 0.2, Neutrophils # (Auto) 13.3H, Lymphocytes # (Auto) 0.7L, Monocytes # (Auto) 0.5, Eosinophils # (Auto) 0.0, Basophils # (Auto) 0.0, Large Unclassified Cells % 0.4 , Large Unclassified Cells # 0.1 11/27/16 10:44: CBC/BMP Laboratory Tests 11/27/16 10:21 11/27/16 10:22 Red Blood Count 3.91 L, Mean Corpuscular Volume 89.6, Mean Corpuscular Hemoglobin 29.9, Mean Corpuscular Hemoglobin Concent 33.4, Red Cell Distribution Width 13.5, Neutrophils (%) (Auto) 91.2 H, Lymphocytes (%) (Auto) 4.3 L, Monocytes (%) (Auto) 3.7, Eosinophils (%) (Auto) 0.2, Basophils (%) (Auto ) 0.2, Neutrophils # (Auto) 13.3 H, Lymphocytes # (Auto) 0.7 L, Monocytes # ( Auto) 0.5, Eosinophils # (Auto) 0.0, Basophils # (Auto) 0.0 Microbiology Microbiology 11/27/16 Gastrointestinal Tract Panel (PCR), Received Pending Assessment/Plan Ms. Brooks is an 86 year old female with a past medical history is significant for chronic back pain, recurrent Clostridium difficile infection, hypertension, anxiety, and gastric ulcer who presents with nausea, vomiting, abdominal pain, and bloody diarrhea. Imaging reports possible enteritis; however, etiology is unclear at that time, but can include viral, ischemic colitis, inflammatory bowel disease, resistant Clostridium difficile infection. Plan / VTE VTE Prophylaxis Ordered?: Yes (TEDs and sequentials with knee-high compression) Plan Plan 1. Bloody diarrhea: Consult gastroenterology. Could consider upper endoscopy and colonoscopy. Clear liquids. Daily BMP and CBC. IVF with NS @ 100mls/hr. Occult blood positive. SHILPA negative for active bleeding. CT abdomen and pelvis show enteritis. Working up for inflammatory bowel disease (although unlikely to present so late in life) with ASCA, p-ANCA, c-ANCA, and CRP ( elevated). TSH stable. GI panel negative. Normocytic anemia. 2. Nausea and vomiting: Clear liquids. Zofran for nausea. 3. Acute renal failure: Could be secondary to persistent vomiting and diarrhea. Electrolytes stable at this time. NS @ 100mls/hr for resuscitation. Will re-evaluate with labs. 4. Leukocytosis: Likely related to underlying GI pathology. No other antibiotics at this time. Re-evaluate with CBC. Lactic acid was negative. 5. Clostridium difficile infection: Switched patient to Dificid. Previously treated with Flagyl and Vancomycin. Informally discussed plan with infectious disease. 6. Chronic back pain: Continue tramadol, norco, and lidocaine patch. Tylenol as needed. 7. Hypertension: Patient does not wish to be on anti-hypertensives at this time. BP is elevated, but likely secondary to abdominal distress and pain. Will continue to monitor with VS. 8. Gastric ulcer: Patient reports ulcer that was previously identified by EGD performed at [facility]. Obtaining records from facility. Request for release of records faxed to facility ([facility]). Have started patient on carafate. 9. Insomnia: Continue trazodone. 10. Vitamin D deficiency: Continue vitamin D supplement. 11. Dementia: Continue remeron. 12. DVT prophylaxis: TEDs and sequentials with knee-high compression. Disposition Admit: progressive care unit, room 3214 Anticipated hospitalization: 2+ nights Attending: Dr. Bertrand Consultation: gastroenterology IVF: Initiate (NS @ 100mls/hr) Diet: Continue Current (clear liquids) Activity: Continue Current (as tolerated) Diagnostics: Check Labs, Repeat Labs in AM Anticipated Discharge: Home With Services INÉS GUPTA Nov 27, 2016 12:15
[2016-11-27 20:00] VITALS: BP 146/65
[2016-11-27] MEDS: **NOTE PATIENT COMMENT** MISC XX SCH (21:00)
[2016-11-27] MEDS: traZODone 50 MG TAB PO SCH (21:01)
[2016-11-27] MEDS: MIRTAZAPINE 15 MG TAB PO SCH (21:02)
[2016-11-27 23:59] VITALS: BP 128/59
[2016-11-28 04:45] VITALS: BP 145/61
[2016-11-28 06:28] LABS: MEAN CORPUSCULAR HEMOGLOBIN 30.6 pg (27.0-33.0); MEAN CORPUSCULAR HGB CONC 33.9 g/dl (32.0-36.5); MEAN CORPUSCULAR VOLUME 90.2 fl (80.0-96.0); RED CELL DISTRIBUTION WIDTH 13.3 % (11.5-14.5); WHITE BLOOD COUNT 5.1 K/mm3 (4.0-10.0)
[2016-11-28 06:47] LABS: ANION GAP 4 MEQ/L (8-16); BLOOD UREA NITROGEN 26 MG/DL (7-18); CARBON DIOXIDE LEVEL 31 MEQ/L (21-32); CHLORIDE LEVEL 107 MEQ/L (98-107); CREATININE FOR GFR 0.79 MG/DL (0.55-1.02); GLOMERULAR FILTRATION RATE > 60.0 (>32); GLUCOSE, FASTING 107 MG/DL (83-110); SODIUM LEVEL 142 MEQ/L (136-145)
[2016-11-28 07:04] LABS: CALCIUM LEVEL 8.4 MG/DL (8.8-10.2)
[2016-11-28 08:00] VITALS: BP 143/69
[2016-11-28] MEDS: VITAMIN D 1,000 INTERNATIONAL UNITS TABLET PO SCH (08:44)
[2016-11-28] MEDS: FIDAXOMICIN 200 MG TAB (DIFICID) PO SCH (08:44)
[2016-11-28] MEDS: SUCRALFATE SUSP 1GM/10ML UD PO SCH ×4 (08:44→20:29)
[2016-11-28] MEDS: traMADol 50 MG TAB PO SCH ×2 (08:46→20:30)
[2016-11-28] MEDS: POTASSIUM CHLORIDE 10 MEQ SR TABLET PO SCH ×2 (08:47→12:58)
[2016-11-28] MEDS: LIDOCAINE 5% (LIDODERM) PATCH TD SCH (08:48)
[2016-11-28] MEDS: LACTOBACILLUS ACIDOPHILUS CAP (BACID) PO SCH ×2 (08:48→20:29)
[2016-11-28] MEDS ORDERED: GOLYTELY SOLN 4000 ML BTL PO ONE ×3 (09:15→14:00)
[2016-11-28] MEDS: NS 1,000 ML IV SCH ×2 (10:54→20:29)
[2016-11-28 12:55] VITALS: BP 146/60
[2016-11-28 14:00] VITALS: BP 130/70
--- NOTE | 2016-11-28 18:00 | IPNPDOC ---
Date Seen The patient was seen on 11/28/16. Progress Note SUBJECTIVE: Ms. Brooks is an 86-year-old female with nausea, vomiting , and diarrhea. Her daughter is in the room during the evaluation. Her daughter reports that the patient had one large, green-colored bowel movement overnight. The patient denies any further nausea or vomiting. Further denies hematemesis, melena, hematochezia. Abdominal pain resolved. She states that she still has no desire to eat or drink anything. OBJECTIVE PHYSICAL EXAMINATION: VITAL SIGNS: Please see below. GENERAL: Elderly female, appears stated age, dressed in a hospital gown and laying in bed, in no apparent distress HEENT: Atraumatic, normocephalic, PERRL, EOMI, periorbital erythema bilaterally , oral mucosa pink and moist, nasal septum midline, nares are patent CARDIOVASCULAR: Regular rate and rhythm, normal S1 and S2, no murmur, rub, click RESPIRATORY: Clear to auscultation bilaterally, adequate inspiratory/ expiratory. No wheeze, rhonchi, or crackles ABDOMINAL: Soft, nontender to palpation, no rebound tenderness, no involuntary guarding, hyperactive bowel sounds EXTREMITIES: Warm, dry, intact, no edema, peripheral pulses appreciated bilaterally in upper and lower extremities NEUROLOGICAL: CN II-XII appear grossly intact PSYCHOLOGICAL: Alert and conversant, pleasant LABORATORY DATA: Please see below. MICROBIOLOGY: Please see below. IMAGING: CT abdomen and pelvis with PO contrast IMPRESSION: 1. Status post colon resection and reanastomosis. 2. Enteritis pattern in the small and large bowel with mild mural thickening. No obstruction. 3. Evidence of a right-sided ureteropelvic junction obstruction with moderate right-sided hydronephrosis. 4. Large hiatal hernia. DVT prophylaxis ordered?: TEDs and sequentials with knee-high compression ASSESSMENT AND PLAN: Ms. Brooks is an 86-year-old female with a past medical history significant for chronic back pain, recurrent Clostridium difficile infection, hypertension, anxiety, and gastric ulcer who presented with nausea, vomiting, diarrhea. ?Enteritis noted on imaging. List of differentials includes, but is not limited to - gastric ulcer, diverticulosis, post-viral gastritis, clostridium difficile infection, angiodysplasia. PROBLEMS: 1. Bloody diarrhea: Improved. EGD and colonoscopy in the AM. NPO for procedures. Hb stable. No need for transfusion. ? 2/2 diverticulosis vs gastric ulcer. 2. Nausea and vomiting: Improving. NPO for EGD and colonoscopy in the AM. Zofran for nausea, as needed. 3. Gastric ulcer: Patient on carafate. EGD in the AM. On protonix 40mg every 12 hours. 4. Hypokalemia: Provided supplementation. 5. Anemia: Likely dilutional. Monitor labs. 6. Acute renal failure: Resolved. 7. Leukocytosis: Resolved. Likely acute phase reactant or related to possible upper GI bleed. 8. Clostridium difficile infection: GI panel was negative. Discontinued Dificid. 9. Chronic back pain: Continue tramadol, norco, and lidocaine patch. Tylenol as needed. 10. Hypertension: Patient does not wish to be on anti-hypertensives at this time. BP is elevated, but likely secondary to abdominal distress and pain. Will continue to monitor with VS. 11. Insomnia: Continue trazodone. 12. Vitamin D deficiency: Continue vitamin D supplement. 13. Dementia: Continue remeron. DISPOSITION: Transferred to [address] [place] [address]. EGD and colonoscopy in the AM with gastroenterology. Continue current medical management. VS, I&O, 24H, Fishbone Vital Signs/I&O Vital Signs Date Time Temp Pulse Resp B/P (MAP) Pulse Ox O2 Delivery O2 Flow Rate FiO2 11/28/16 14:00 98.6 82 18 130/70 (90) 94 Room Air I&O- Last 24 Hours up to 6 AM 11/28/16 06:00 Intake Total 1590 ml Output Total 100 ml Balance 1490 ml Laboratory Data 24H LABS Laboratory Tests 2 11/28/16 06:07: Anion Gap 4L, Glomerular Filtration Rate > 60.0, Blood Urea Nitrogen 26H, Creatinine 0.79, Sodium Level 142, Potassium Level 3.0L, Chloride Level 107, Carbon Dioxide Level 31, Calcium Level 8.4#L CBC/BMP Laboratory Tests 11/28/16 06:07 Red Blood Count 3.42 L, Mean Corpuscular Volume 90.2, Mean Corpuscular Hemoglobin 30.6, Mean Corpuscular Hemoglobin Concent 33.9, Red Cell Distribution Width 13.3, Calcium Level 8.4 #L Microbiology Microbiology 11/27/16 Gastrointestinal Tract Panel (PCR) - Final, Complete OOSTHUIZEN,INÉS R OGME-I Nov 28, 2016 18:00 NATALIA OQUENDO MD Dec 10, 2016 20:28
[2016-11-28 18:29] LABS: MEAN CORPUSCULAR HEMOGLOBIN 30.4 pg (27.0-33.0); MEAN CORPUSCULAR HGB CONC 33.4 g/dl (32.0-36.5); MEAN CORPUSCULAR VOLUME 91.1 fl (80.0-96.0); RED CELL DISTRIBUTION WIDTH 13.6 % (11.5-14.5); WHITE BLOOD COUNT 5.7 K/mm3 (4.0-10.0)
[2016-11-28 18:56] LABS: ANION GAP 7 MEQ/L (8-16); BLOOD UREA NITROGEN 18 MG/DL (7-18); CALCIUM LEVEL 8.5 MG/DL (8.8-10.2); CARBON DIOXIDE LEVEL 25 MEQ/L (21-32); CHLORIDE LEVEL 112 MEQ/L (98-107); CREATININE FOR GFR 0.72 MG/DL (0.55-1.02); GLOMERULAR FILTRATION RATE > 60.0 (>32); GLUCOSE, FASTING 113 MG/DL (83-110); POTASSIUM SERUM 3.6 MEQ/L (3.5-5.1); SODIUM LEVEL 144 MEQ/L (136-145)
[2016-11-28] MEDS: MIRTAZAPINE 15 MG TAB PO SCH (20:29)
[2016-11-28] MEDS: PANTOPRAZOLE 40MG INJ (PROTONIX) (C9113) IV SCH (20:30)
[2016-11-28] MEDS: traZODone 50 MG TAB PO SCH (20:30)
[2016-11-28] MEDS: **NOTE PATIENT COMMENT** MISC XX SCH (20:31)
[2016-11-28 22:00] VITALS: BP 176/74
[2016-11-29 02:14] LABS: MEAN CORPUSCULAR HEMOGLOBIN 30.6 pg (27.0-33.0); MEAN CORPUSCULAR HGB CONC 33.3 g/dl (32.0-36.5); RED CELL DISTRIBUTION WIDTH 13.4 % (11.5-14.5)
[2016-11-29] MEDS: NS 1,000 ML IV SCH ×3 (03:05→23:04)
[2016-11-29] MEDS: PANTOPRAZOLE 40MG INJ (PROTONIX) (C9113) IV SCH ×2 (05:49→17:56)
[2016-11-29 06:00] VITALS: BP 137/87
[2016-11-29] MEDS ORDERED: GOLYTELY SOLN 4000 ML BTL PO ONE (06:00)
[2016-11-29] MEDS: LIDOCAINE 5% (LIDODERM) PATCH TD SCH (09:33)
[2016-11-29] MEDS: VITAMIN D 1,000 INTERNATIONAL UNITS TABLET PO SCH (09:33)
[2016-11-29] MEDS: LACTOBACILLUS ACIDOPHILUS CAP (BACID) PO SCH ×2 (09:33→20:35)
[2016-11-29] MEDS: SUCRALFATE SUSP 1GM/10ML UD PO SCH ×4 (09:33→20:34)
[2016-11-29] MEDS: traMADol 50 MG TAB PO SCH ×2 (09:34→20:35)
[2016-11-29 09:43] LABS: MEAN CORPUSCULAR HGB CONC 34.1 g/dl (32.0-36.5); MEAN CORPUSCULAR VOLUME 90.9 fl (80.0-96.0); RED CELL DISTRIBUTION WIDTH 13.4 % (11.5-14.5); WHITE BLOOD COUNT 4.8 K/mm3 (4.0-10.0)
[2016-11-29 10:17] LABS: ANION GAP 7 MEQ/L (8-16); BLOOD UREA NITROGEN 10 MG/DL (7-18); CALCIUM LEVEL 8.1 MG/DL (8.8-10.2); CARBON DIOXIDE LEVEL 25 MEQ/L (21-32); CHLORIDE LEVEL 112 MEQ/L (98-107); CREATININE FOR GFR 0.57 MG/DL (0.55-1.02); GLOMERULAR FILTRATION RATE > 60.0 (>32); GLUCOSE, FASTING 96 MG/DL (83-110); POTASSIUM SERUM 3.4 MEQ/L (3.5-5.1); SODIUM LEVEL 144 MEQ/L (136-145)
--- NOTE | 2016-11-29 11:38 | IPNPDOC ---
Text Note Date of Service The patient was seen on 11/29/16. NOTE Subjective: Patient feels well. Abdominal pain is resolved. No nausea or vomiting. No hematochezia or melanotic stools. Objective: Vitals: (see below) General: No acute distress, laying comfortably in bed. HEENT: Moist mucous membranes. Neck: No JVD or lymphadenopathy Cardiac: RRR, No murmurs Pulm: Clear to auscultation b/l. No wheezing, rhonchi Abd: NT/ND + BS Ext: Minimal edema bilateral lower extremities. No cyanosis Labs (see below) Images: CT abdomen/pelvis Impression: 1. Status post colon resection and reanastomosis. 2. Enteritis pattern in the small and large bowel with mild mural thickening. No obstruction. 3. Evidence of a right-sided ureteropelvic junction obstruction with moderate right-sided hydronephrosis. 4. Large hiatal hernia. Assessment/Plan 1. Melanotic stools with a history of gastric ulcer. Patient has been placed on Protonix IV twice a day. Hemoglobin is stable. Patient has not required any blood transfusions. Nausea and vomiting have resolved. Abdominal pain resolved as well. Plan for endoscopy today with Dr. Perea. 2. Hypokalemia- replaced 3. Acute kidney injury- resolved with IV fluids 4. Chronic anemia- hemoglobin is at the patient's baseline. Stable. No need for gestational this time. 5. Leukocytosis- resolved. Likely secondary to upper GI bleed. No infectious etiology at this time. 6. History of C. difficile- has been treated with nothing by mouth palpation. Resolved. GI panel negative. Deficit discontinued. 7. Insomnia- on trazodone 8. Vitamin D deficiency- on replacement 9. ? Early signs of dementia; will need close follow-up. 10. 10 pound weight loss- questionable related to patient's recent treatment with C. difficile, recent hospitalization, nausea/vomiting, gastric ulcer. We will have an endoscopy and rule out colon cancer. 11. Chronic right-sided ureteropelvic junction obstruction with moderate right- sided hydronephrosis - I discussed these findings with Dr. Sousa on 11/28/16 who also reviewed the CAT scan imaging. Dr. Sousa recommended outpatient follow-up and no need for intervention as this is likely a chronic issue that is not causing any issues at this time. 12. Questionable enteritis on CAT scan of abdomen and pelvis. No pain resolved. Will further evaluate with endoscopy. DVT prophy: SCDs Discussed the above with daughter, Catherine. VS,Jamarcuscherise, I+O VS, Jamarcuscherise, I+O Laboratory Tests 11/28/16 18:15 Red Blood Count 3.54 L, Mean Corpuscular Volume 91.1, Mean Corpuscular Hemoglobin 30.4, Mean Corpuscular Hemoglobin Concent 33.4, Red Cell Distribution Width 13.6, Calcium Level 8.5 L 11/29/16 01:32 Red Blood Count 3.37 L, Mean Corpuscular Volume 92.0, Mean Corpuscular Hemoglobin 30.6, Mean Corpuscular Hemoglobin Concent 33.3, Red Cell Distribution Width 13.4 11/29/16 09:33 Red Blood Count 3.28 L, Mean Corpuscular Volume 90.9, Mean Corpuscular Hemoglobin 31.0, Mean Corpuscular Hemoglobin Concent 34.1, Red Cell Distribution Width 13.4, Calcium Level 8.1 L Vital Signs Date Time Temp Pulse Resp B/P (MAP) Pulse Ox O2 Delivery O2 Flow Rate FiO2 11/29/16 09:34 16 11/29/16 06:00 97.4 92 137/87 (104) 94 Room Air I&O- Last 24 Hours up to 6 AM 11/29/16 06:00 Intake Total 4400 ml Output Total 300 ml Balance 4100 ml NATALIA OQUENDO MD Nov 29, 2016 11:38
[2016-11-29 14:00] VITALS: BP 140/82
[2016-11-29] MEDS ORDERED: LIDOCAINE 2% INJ 100 MG/5 ML SDV (FOR ANES.) As Ordered ONE (15:39)
[2016-11-29] MEDS ORDERED: PROPOFOL 200 MG/20 ML VIAL As Ordered ONE (15:39)
--- NOTE | 2016-11-29 16:01 | ROOR ---
Patient Name: Makenna Brooks Procedure Date: 11/29/2016 3:51 PM Date of : 1930 Age: 86 Room: [facility] Gender: Female Note Status: Finalized Procedure: Upper GI endoscopy Indications: Exclusion of ulcer of the GI tract, Nausea with vomiting Providers: Jean Pierre Perea MD Referring MD: 2. Inpatient 2. Inpatient Requesting Provider: Medicines: Monitored Anesthesia Care Complications: No immediate complications. Procedure: Pre-Anesthesia Assessment: - The heart rate, respiratory rate, oxygen saturations, blood pressure, adequacy of pulmonary ventilation, and response to care were monitored throughout the procedure. The Endoscope was introduced through the mouth, and advanced to the second part of duodenum. The upper GI endoscopy was accomplished without difficulty. The patient tolerated the procedure well. Findings: The Z-line was regular and was found 38 cm from the incisors. A small hiatal hernia was present. No other significant abnormalities were identified in a careful examination of the stomach. The exam of the duodenum was otherwise normal. Impression: - Z-line regular, 38 cm from the incisors. - Small hiatal hernia. - No specimens collected. - The examination was otherwise normal. Recommendation: - Patient has a contact number available for emergencies. The signs and symptoms of potential delayed complications were discussed with the patient. Return to normal activities tomorrow. Written discharge instructions were provided to the patient. - Discharge patient to home. - Continue present medications. - Return to referring physician. - Follow an antireflux regimen. - The findings and recommendations were discussed with the patient's family. Jean Pierre Perea MD Jean Pierre Perea MD 11/29/2016 4:00:48 PM This report has been signed electronically. Number of Addenda: 0 Note Initiated On: 11/29/2016 3:51 PM Estimated Blood Loss: Estimated blood loss: none.
--- NOTE | 2016-11-29 16:18 | ROOR ---
Patient Name: Makenna Brooks Procedure Date: 11/29/2016 3:52 PM Date of : 1930 Age: 86 Room: [facility] Gender: Female Note Status: Finalized Procedure: Total Colonoscopy to Cecum Indications: Lower abdominal pain, Clinically significant diarrhea of unexplained origin, Rectal bleeding Providers: Jean Pierre Perea MD Referring MD: 2. Inpatient 2. Inpatient Requesting Provider: Medicines: Monitored Anesthesia Care Complications: No immediate complications. Procedure: Pre-Anesthesia Assessment: - The heart rate, respiratory rate, oxygen saturations, blood pressure, adequacy of pulmonary ventilation, and response to care were monitored throughout the procedure. The Colonoscope was introduced through the anus and advanced to the cecum, identified by appendiceal orifice and ileocecal valve. The colonoscopy was performed without difficulty. The patient tolerated the procedure well. The quality of the bowel preparation was excellent. Findings: The perianal and digital rectal examinations were normal. Non-bleeding internal hemorrhoids were found during retroflexion. The hemorrhoids were small and Grade I (internal hemorrhoids that do not prolapse). Multiple small and large-mouthed diverticula were found in the recto-sigmoid colon, sigmoid colon and descending colon. The exam was otherwise without abnormality on direct and retroflexion views. There was evidence of a prior end-to-end colo-colonic anastomosis in the sigmoid colon. This was patent and was characterized by healthy appearing mucosa. The anastomosis was traversed. Impression: - Non-bleeding internal hemorrhoids. - Diverticulosis in the recto-sigmoid colon, in the sigmoid colon and in the descending colon. - The examination was otherwise normal on direct and retroflexion views. - No specimens collected. - The exam was otherwise normal to the cecum. Recommendation: - Patient has a contact number available for emergencies. The signs and symptoms of potential delayed complications were discussed with the patient. Return to normal activities tomorrow. Written discharge instructions were provided to the patient. - High fiber diet. - Continue present medications. - Repeat colonoscopy for symptoms only. - Return to referring physician. - The findings and recommendations were discussed with the patient's family. Jean Pierre Perea MD Jean Pierre Perea MD 11/29/2016 4:17:43 PM This report has been signed electronically. Number of Addenda: 0 Note Initiated On: 11/29/2016 3:52 PM Estimated Blood Loss: Estimated blood loss: none.
[2016-11-29 17:00] VITALS: BP 190/80
[2016-11-29 17:30] VITALS: BP 192/78
[2016-11-29] MEDS ORDERED: amLODIPine 10 MG TAB PO ONE (17:45)
[2016-11-29] MEDS: BISOPROLOL FUM 2.5 MG PER 1/2TAB PO SCH (17:56)
[2016-11-29 18:11] LABS: MEAN CORPUSCULAR HEMOGLOBIN 30.9 pg (27.0-33.0); MEAN CORPUSCULAR VOLUME 90.8 fl (80.0-96.0); RED CELL DISTRIBUTION WIDTH 13.6 % (11.5-14.5); WHITE BLOOD COUNT 4.5 K/mm3 (4.0-10.0)
[2016-11-29 18:30] VITALS: BP 156/84
[2016-11-29] MEDS: MIRTAZAPINE 15 MG TAB PO SCH (20:35)
[2016-11-29] MEDS: **NOTE PATIENT COMMENT** MISC XX SCH (20:35)
[2016-11-29] MEDS: traZODone 50 MG TAB PO SCH (20:35)
[2016-11-29 22:00] VITALS: BP 149/82
[2016-11-30 01:13] LABS: MEAN CORPUSCULAR HEMOGLOBIN 30.5 pg (27.0-33.0); MEAN CORPUSCULAR HGB CONC 34.1 g/dl (32.0-36.5); MEAN CORPUSCULAR VOLUME 89.5 fl (80.0-96.0); RED CELL DISTRIBUTION WIDTH 13.1 % (11.5-14.5)
[2016-11-30 02:00] VITALS: BP 148/78
[2016-11-30 05:35] LABS: MEAN CORPUSCULAR HEMOGLOBIN 30.8 pg (27.0-33.0); MEAN CORPUSCULAR HGB CONC 34.2 g/dl (32.0-36.5); MEAN CORPUSCULAR VOLUME 90.2 fl (80.0-96.0); RED CELL DISTRIBUTION WIDTH 13.5 % (11.5-14.5)
[2016-11-30 05:47] LABS: ANION GAP 8 MEQ/L (8-16); BLOOD UREA NITROGEN 5 MG/DL (7-18); CALCIUM LEVEL 7.9 MG/DL (8.8-10.2); CARBON DIOXIDE LEVEL 25 MEQ/L (21-32); CHLORIDE LEVEL 111 MEQ/L (98-107); CREATININE FOR GFR 0.47 MG/DL (0.55-1.02); GLOMERULAR FILTRATION RATE > 60.0 (>32); GLUCOSE, FASTING 91 MG/DL (83-110); POTASSIUM SERUM 2.7 MEQ/L (3.5-5.1); SODIUM LEVEL 144 MEQ/L (136-145)
[2016-11-30 06:00] VITALS: BP 132/68
[2016-11-30] MEDS ORDERED: POTASSIUM CHLORIDE 10 MEQ SR TABLET PO ONE ×3 (06:15→10:45)
[2016-11-30] MEDS: PANTOPRAZOLE 40MG INJ (PROTONIX) (C9113) IV SCH (06:19)
[2016-11-30 06:23] LABS: MAGNESIUM LEVEL 1.7 MG/DL (1.8-2.4)
[2016-11-30] MEDS: traMADol 50 MG TAB PO SCH ×2 (08:21→21:19)
[2016-11-30] MEDS ORDERED: CALCIUM GLUCONATE 1,000 MG in D5W MINI-BAG PLUS 100 ML IV ONE (08:45)
[2016-11-30] MEDS ORDERED: MAG SULF 1GM/100ML (MAG RUN) 1 GM in APPROPRIATE DILUENT 1 EA IV ONE (08:45)
[2016-11-30 08:58] VITALS: BP 175/75
[2016-11-30] MEDS: LIDOCAINE 5% (LIDODERM) PATCH TD SCH (10:16)
[2016-11-30] MEDS: LACTOBACILLUS ACIDOPHILUS CAP (BACID) PO SCH ×2 (10:17→21:20)
[2016-11-30] MEDS: SUCRALFATE SUSP 1GM/10ML UD PO SCH ×4 (10:17→21:15)
[2016-11-30] MEDS: amLODIPine 10 MG TAB PO SCH (10:18)
[2016-11-30] MEDS: FAMOTIDINE 20 MG TAB PO SCH ×2 (10:18→21:20)
[2016-11-30] MEDS: VITAMIN D 1,000 INTERNATIONAL UNITS TABLET PO SCH (10:18)
[2016-11-30] MEDS: LISINOPRIL 20 MG TAB PO SCH (10:19)
[2016-11-30] MEDS: NS 1,000 ML IV SCH ×2 (10:23→19:50)
[2016-11-30] MEDS ORDERED: ISOVUE-370 76% 100ML VIAL (Q9967) As Ordered ONE (11:23)
--- NOTE | 2016-11-30 13:01 | REP ---
CT ANGIO ABDOMEN: HISTORY: Rule out ischemia. CONTRAST: Isovue-370, 75 mL COMPARISON: 11/27/2016 The patient is status post cholecystectomy. Two 1 cm ring-enhancing lesions are present in the inferior spleen. There is marked dilatation of the right renal pelvis with likely ureteropelvic junction obstruction. A 1 cm nodule is present in the left adrenal gland. This likely represents an adenoma. The liver, pancreas, right adrenal gland and left kidney are normal in appearance. The patient is status post left colectomy. There is no mass, adenopathy or free fluid. Atherosclerotic calcification is present in the abdominal aorta and iliac arteries. There is no definite occlusion of major abdominal and pelvis arteries. Distal small arteries are not well seen. There is no aneurysm. The visualized lungs are clear. Small and large intestine bowel wall thickness cannot be evaluated. IMPRESSION: 1. The patient is status post cholecystectomy and left colectomy. 2. 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 3. Marked right hydronephrosis with likely ureteropelvic junction obstruction. Signed by Uli Bran MD 12/01/2016 07:48 A
--- NOTE | 2016-11-30 13:30 | IPNPDOC ---
Text Note Date of Service The patient was seen on 11/30/16. NOTE Subjective: Patient feels well. Abdominal pain is resolved. No nausea or vomiting. Ate breakfast. No hematochezia or melanotic stools. Further history from family obtained, with the 'chocoholate colored emesis being referred to as bile', and no melanotic stools, but rather only hematochezia noted. Objective: Vitals: (see below) General: No acute distress, laying comfortably in bed. HEENT: Moist mucous membranes. Neck: No JVD or lymphadenopathy Cardiac: RRR, No murmurs Pulm: Clear to auscultation b/l. No wheezing, rhonchi Abd: NT/ND + BS Ext: Minimal edema bilateral lower extremities. No cyanosis Labs (see below) Images: CT abdomen/pelvis Impression: 1. Status post colon resection and reanastomosis. 2. Enteritis pattern in the small and large bowel with mild mural thickening. No obstruction. 3. Evidence of a right-sided ureteropelvic junction obstruction with moderate right-sided hydronephrosis. 4. Large hiatal hernia. Colonoscopy 11/30/16 Impression: - Non-bleeding internal hemorrhoids. - Diverticulosis in the recto-sigmoid colon, in the sigmoid colon and in the descending colon. - The examination was otherwise normal on direct and retroflexion views. - No specimens collected. - The exam was otherwise normal to the cecum. Recommendation: - Patient has a contact number available for emergencies. The signs and symptoms of potential delayed complications were discussed with the patient. Return to normal activities tomorrow. Written discharge instructions were provided to the patient. - High fiber diet. - Continue present medications. - Repeat colonoscopy for symptoms only. - Return to referring physician. - The findings and recommendations were discussed with the patient's family. EGD 11/30/16 Impression: - Z-line regular, 38 cm from the incisors. - Small hiatal hernia. - No specimens collected. - The examination was otherwise normal. Recommendation: - Patient has a contact number available for emergencies. The signs and symptoms of potential delayed complications were discussed with the patient. Return to normal activities tomorrow. Written discharge instructions were provided to the patient. - Discharge patient to home. - Continue present medications. - Return to referring physician. - Follow an antireflux regimen. - The findings and recommendations were discussed with the patient's family. Assessment/Plan 1. Hematochezia with with a history of gastric ulcer. EGD/Colonscopy 11/29 (see above) Hemoglobin is stable. Patient has not required any blood transfusions. Nausea and vomiting have resolved. Abdominal pain resolved as well.Protonix changed to pepcid BID. Will obtain gastric emptying study. 2. Hypokalemia/hypomagnesemia- replaced. Will repeat BMP at 2pm. 3. Acute kidney injury- resolved with IV fluids 4. Chronic anemia- hemoglobin is at the patient's baseline. Stable. No need for gestational this time. 5. Leukocytosis- resolved. Likely secondary to upper GI bleed. No infectious etiology at this time. 6. History of C. difficile- has been treated with nothing by mouth palpation. Resolved. GI panel negative. Deficit discontinued. 7. Insomnia- on trazodone 8. Vitamin D deficiency- on replacement 9. ? Early signs of dementia; will need close follow-up. 10. 10 pound weight loss- questionable related to patient's recent treatment with C. difficile, recent hospitalization, nausea/vomiting. Had EGD/Colonscopy ( see above). 11. Chronic right-sided ureteropelvic junction obstruction with moderate right- sided hydronephrosis - I discussed these findings with Dr. Sousa on 11/28/16 who also reviewed the CAT scan imaging. Dr. Sousa recommended outpatient follow-up and no need for intervention as this is likely a chronic issue that is not causing any issues at this time. DVT prophy: SCDs Discussed the above with daughter, Catherine. Plan to d/c in the next 24-48 hrs. VS,Fishbone, I+O VS, Fishbone, I+O Laboratory Tests 11/29/16 17:38 Red Blood Count 3.43 L, Mean Corpuscular Volume 90.8, Mean Corpuscular Hemoglobin 30.9, Mean Corpuscular Hemoglobin Concent 34.0, Red Cell Distribution Width 13.6 11/30/16 01:06 Red Blood Count 3.40 L, Mean Corpuscular Volume 89.5, Mean Corpuscular Hemoglobin 30.5, Mean Corpuscular Hemoglobin Concent 34.1, Red Cell Distribution Width 13.1 11/30/16 05:13 Red Blood Count 3.40 L, Mean Corpuscular Volume 90.2, Mean Corpuscular Hemoglobin 30.8, Mean Corpuscular Hemoglobin Concent 34.2, Red Cell Distribution Width 13.5, Calcium Level 7.9 L Vital Signs Date Time Temp Pulse Resp B/P (MAP) Pulse Ox O2 Delivery O2 Flow Rate FiO2 11/30/16 08:58 97.3 72 16 175/75 (108) 95 Room Air I&O- Last 24 Hours up to 6 AM 11/30/16 06:00 Intake Total 2520 ml Output Total 0 ml Balance 2520 ml NATALIA OQUENDO MD Nov 30, 2016 13:30
[2016-11-30 14:00] VITALS: BP 158/89
[2016-11-30 14:20] LABS: ANION GAP 8 MEQ/L (8-16); BLOOD UREA NITROGEN 5 MG/DL (7-18); CALCIUM LEVEL 8.3 MG/DL (8.8-10.2); CARBON DIOXIDE LEVEL 23 MEQ/L (21-32); CHLORIDE LEVEL 109 MEQ/L (98-107); CREATININE FOR GFR 0.65 MG/DL (0.55-1.02); GLOMERULAR FILTRATION RATE > 60.0 (>32); GLUCOSE, FASTING 144 MG/DL (83-110); SODIUM LEVEL 140 MEQ/L (136-145)
[2016-11-30 14:33] LABS: POTASSIUM SERUM 3.9 MEQ/L (3.5-5.1)
[2016-11-30] MEDS: **NOTE PATIENT COMMENT** MISC XX SCH (21:00)
[2016-11-30] MEDS: BISOPROLOL FUM 2.5 MG PER 1/2TAB PO SCH (21:18)
[2016-11-30] MEDS: traZODone 50 MG TAB PO SCH (21:20)
[2016-11-30] MEDS: MIRTAZAPINE 15 MG TAB PO SCH (21:20)
[2016-11-30 22:00] VITALS: BP 158/73
[2016-12-01] MEDS: NS 1,000 ML IV SCH ×2 (04:59→13:38)
[2016-12-01 06:00] VITALS: BP 152/62
[2016-12-01 06:15] LABS: MEAN CORPUSCULAR HEMOGLOBIN 30.9 pg (27.0-33.0); MEAN CORPUSCULAR HGB CONC 34.1 g/dl (32.0-36.5); MEAN CORPUSCULAR VOLUME 90.7 fl (80.0-96.0); RED CELL DISTRIBUTION WIDTH 13.5 % (11.5-14.5); WHITE BLOOD COUNT 4.7 K/mm3 (4.0-10.0)
[2016-12-01 06:27] LABS: ANION GAP 8 MEQ/L (8-16); BLOOD UREA NITROGEN 6 MG/DL (7-18); CALCIUM LEVEL 7.6 MG/DL (8.8-10.2); CARBON DIOXIDE LEVEL 24 MEQ/L (21-32); CHLORIDE LEVEL 112 MEQ/L (98-107); CREATININE FOR GFR 0.51 MG/DL (0.55-1.02); GLOMERULAR FILTRATION RATE > 60.0 (>32); GLUCOSE, FASTING 97 MG/DL (83-110); POTASSIUM SERUM 3.4 MEQ/L (3.5-5.1); SODIUM LEVEL 144 MEQ/L (136-145)
[2016-12-01] MEDS ORDERED: CALCIUM GLUCONATE 1,000 MG in D5W MINI-BAG PLUS 100 ML IV ONE (07:45)
[2016-12-01] MEDS ORDERED: POTASSIUM CHLORIDE 10 MEQ SR TABLET PO ONE (07:45)
--- NOTE | 2016-12-01 08:06 | IPNPDOC ---
Text Note Date of Service The patient was seen on 12/01/16. NOTE Subjective: Patient feels well. Abdominal pain is resolved. No nausea or vomiting.Tolerating diet. No hematochezia or melanotic stools since admission. Wants to go home soon. Objective: Vitals: (see below) General: No acute distress, laying comfortably in bed. HEENT: Moist mucous membranes. Neck: No JVD or lymphadenopathy Cardiac: RRR, No murmurs Pulm: Clear to auscultation b/l. No wheezing, rhonchi Abd: NT/ND + BS Ext: Minimal edema bilateral lower extremities. No cyanosis Labs (see below) Images: CT abdomen/pelvis Impression: 1. Status post colon resection and reanastomosis. 2. Enteritis pattern in the small and large bowel with mild mural thickening. No obstruction. 3. Evidence of a right-sided ureteropelvic junction obstruction with moderate right-sided hydronephrosis. 4. Large hiatal hernia. Colonoscopy 11/30/16 Impression: - Non-bleeding internal hemorrhoids. - Diverticulosis in the recto-sigmoid colon, in the sigmoid colon and in the descending colon. - The examination was otherwise normal on direct and retroflexion views. - No specimens collected. - The exam was otherwise normal to the cecum. Recommendation: - Patient has a contact number available for emergencies. The signs and symptoms of potential delayed complications were discussed with the patient. Return to normal activities tomorrow. Written discharge instructions were provided to the patient. - High fiber diet. - Continue present medications. - Repeat colonoscopy for symptoms only. - Return to referring physician. - The findings and recommendations were discussed with the patient's family. EGD 11/30/16 Impression: - Z-line regular, 38 cm from the incisors. - Small hiatal hernia. - No specimens collected. - The examination was otherwise normal. Recommendation: - Patient has a contact number available for emergencies. The signs and symptoms of potential delayed complications were discussed with the patient. Return to normal activities tomorrow. Written discharge instructions were provided to the patient. - Discharge patient to home. - Continue present medications. - Return to referring physician. - Follow an antireflux regimen. - The findings and recommendations were discussed with the patient's family. CTA Abdominal arteries 7/14/17 The patient is status post cholecystectomy. Two 1 cm ring-enhancing lesions are present in the inferior spleen. There is marked dilatation of the right renal pelvis with likely ureteropelvic junction obstruction. A 1 cm nodule is present in the left adrenal gland. This likely represents an adenoma. The liver, pancreas, right adrenal gland and left kidney are normal in appearance. The patient is status post left colectomy. There is no mass, adenopathy or free fluid. Atherosclerotic calcification is present in the abdominal aorta and iliac arteries. There is no definite occlusion of major abdominal and pelvis arteries. Distal small arteries are not well seen. There is no aneurysm. The visualized lungs are clear. Small and large intestine bowel wall thickness cannot be evaluated. IMPRESSION:1. The patient is status post cholecystectomy and left colectomy. 2. 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 3. Marked right hydronephrosis with likely ureteropelvic junction obstruction. Assessment/Plan 1. Hematochezia with with a history of gastric ulcer. EGD/Colonoscopy 11/29 (see above) Hemoglobin is stable. Patient has not required any blood transfusions. Nausea and vomiting have resolved. Abdominal pain resolved as well.Protonix changed to pepcid BID. Will obtain gastric emptying study. 2. 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 Will obtain CT Chest/Abd/pelvis to r/o malignancy. No notable findings on Colonoscopy, and I did speak with Dr. Bran who does not note any lesions in the liver. 3. Hypokalemia/hypomagnesemia- replaced. Will repeat BMP at 2pm. 4. Chronic anemia- hemoglobin is at the patient's baseline. Stable. No need for gestational this time. 5. Leukocytosis- resolved. Likely secondary to upper GI bleed. No infectious etiology at this time. 6. History of C. difficile- has been treated with nothing by mouth palpation. Resolved. GI panel negative. Deficit discontinued. 7. Insomnia- on trazodone 8. Vitamin D deficiency- on replacement 9. ? Early signs of dementia; will need close follow-up. 10. 10 pound weight loss- questionable related to patient's recent treatment with C. difficile, recent hospitalization, nausea/vomiting. Had EGD/Colonscopy ( see above). 11. Chronic right-sided ureteropelvic junction obstruction with moderate right- sided hydronephrosis - I discussed these findings with Dr. Sousa on 11/28/16 who also reviewed the CAT scan imaging. Dr. Sousa recommended outpatient follow-up and no need for intervention as this is likely a chronic issue that is not causing any issues at this time. 12. Acute kidney injury- resolved with IV fluids DVT prophy: SCDs Discussed the above with daughter, Catherine. Plan to d/c in the next 24-48 hrs. VS,Fishbone, I+O VS, Fishbone, I+O Laboratory Tests 11/30/16 13:48 Calcium Level 8.3 L 12/01/16 05:36 Calcium Level 7.6 L, Red Blood Count 3.44 L, Mean Corpuscular Volume 90.7, Mean Corpuscular Hemoglobin 30.9, Mean Corpuscular Hemoglobin Concent 34.1, Red Cell Distribution Width 13.5 Vital Signs Date Time Temp Pulse Resp B/P (MAP) Pulse Ox O2 Delivery O2 Flow Rate FiO2 12/01/16 06:00 98.5 67 18 152/62 (92) 92 Room Air I&O- Last 24 Hours up to 6 AM 12/01/16 06:00 Intake Total 4820 ml Output Total 0 ml Balance 4820 ml NATALIA OQUENDO MD Dec 01, 2016 08:06
[2016-12-01] MEDS: LACTOBACILLUS ACIDOPHILUS CAP (BACID) PO SCH ×2 (09:08→20:50)
[2016-12-01] MEDS: SUCRALFATE SUSP 1GM/10ML UD PO SCH ×4 (09:08→20:50)
[2016-12-01] MEDS: VITAMIN D 1,000 INTERNATIONAL UNITS TABLET PO SCH (09:08)
[2016-12-01] MEDS: LIDOCAINE 5% (LIDODERM) PATCH TD SCH (09:08)
[2016-12-01] MEDS: LISINOPRIL 20 MG TAB PO SCH (09:09)
[2016-12-01] MEDS: amLODIPine 10 MG TAB PO SCH (09:10)
[2016-12-01] MEDS: FAMOTIDINE 20 MG TAB PO SCH ×2 (09:10→20:50)
[2016-12-01] MEDS: traMADol 50 MG TAB PO SCH ×2 (09:10→20:51)
[2016-12-01] MEDS ORDERED: GASTROGRAFIN SOLUTION 30ML PO ONE (10:00)
[2016-12-01] MEDS ORDERED: GASTROGRAFIN SOLUTION 30ML (Q9963) PO ONE (10:30)
--- NOTE | 2016-12-01 13:04 | REP ---
CT ABDOMEN AND PELVIS WITH CONTRAST: HISTORY: Rule out malignancy. CONTRAST: Isovue-370, 75 mL COMPARISON: 11/27/2016 and 11/30/2016. The patient is status post cholecystectomy. There is minimal dilatation of the common bile duct and intrahepatic biliary system. Two 1 cm ring-enhancing lesions are present in the spleen. There is marked dilatation of the right renal pelvis with likely ureteropelvic junction obstruction. A 1 cm nodule is present in the left adrenal gland. This most likely represents an adenoma. The liver, pancreas, right adrenal gland and left kidney are normal in appearance. The patient is status post left colectomy. There is no mass, adenopathy or free fluid. The patient is status post hysterectomy. The urinary bladder is normal in appearance. Degenerative change is present in the spine. The visualized lungs are clear. A large hiatal hernia is present. IMPRESSION: 1. The patient is status post cholecystectomy. 2. There are two 1 cm enhancing lesions in the spleen. Differential diagnosis includes hemangioma, hamartoma , lymphoma and metastasis. 3. 1 cm left adrenal adenoma. 4. There is marked dilatation of the right renal pelvis with likely ureteropelvic junction obstruction. 5. The patient is status post hysterectomy. 6. The patient is status post left colectomy. 7. Large hiatal hernia. 8. The patient is status post hysterectomy. Signed by Uli Bran MD 12/02/2016 08:32 A
--- NOTE | 2016-12-01 13:48 | REP ---
CT CHEST WITH CONTRAST: HISTORY: Rule out malignancy. CONTRAST: Isovue-370, 100 mL Linear density is present in the right upper lobe consistent with scar. The left lung is clear. There is no pleural effusion. Small lymph nodes less than 1 cm in size are present in the mediastinum. The cardiac silhouette is enlarged. Atherosclerotic calcification is present in the thoracic aorta. A large hiatal hernia is present. A 1 cm mass is present in the left adrenal gland. This most likely represents an adenoma. Degenerative change is present in the spine. IMPRESSION: 1. Right upper lobe scar. 2. Cardiomegaly. 3. Large hiatal hernia. 4. 1 cm left adrenal mass most likely representing an adenoma. Signed by Uli Bran MD 12/01/2016 01:59 P
[2016-12-01 14:00] VITALS: BP 134/61
[2016-12-01 14:10] LABS: ANTI-SACCHAROMYCES CEREV. IgA 45.8 Units (0.0-24.9); ANTI-SACCHAROMYCES CEREV. IgG <20.0 Units (0.0-24.9)
[2016-12-01] MEDS ORDERED: NS 0.45% 1,000 ML IV SCH (15:15)
[2016-12-01] MEDS: MIRTAZAPINE 15 MG TAB PO SCH (20:50)
[2016-12-01] MEDS: traZODone 50 MG TAB PO SCH (20:50)
[2016-12-01] MEDS: BISOPROLOL FUM 2.5 MG PER 1/2TAB PO SCH (20:50)
[2016-12-01] MEDS: **NOTE PATIENT COMMENT** MISC XX SCH (20:51)
[2016-12-01 22:00] VITALS: BP 148/89
[2016-12-02] MEDS: NS 1,000 ML IV SCH ×2 (01:00→11:00)
[2016-12-02 06:00] VITALS: BP 148/71
[2016-12-02 06:36] LABS: MEAN CORPUSCULAR HEMOGLOBIN 30.6 pg (27.0-33.0); MEAN CORPUSCULAR HGB CONC 33.6 g/dl (32.0-36.5); MEAN CORPUSCULAR VOLUME 91.2 fl (80.0-96.0); RED CELL DISTRIBUTION WIDTH 13.6 % (11.5-14.5)
[2016-12-02 06:52] LABS: ANION GAP 8 MEQ/L (8-16); BLOOD UREA NITROGEN 8 MG/DL (7-18); CALCIUM LEVEL 8.2 MG/DL (8.8-10.2); CARBON DIOXIDE LEVEL 25 MEQ/L (21-32); CHLORIDE LEVEL 109 MEQ/L (98-107); CREATININE FOR GFR 0.53 MG/DL (0.55-1.02); GLOMERULAR FILTRATION RATE > 60.0 (>32); GLUCOSE, FASTING 97 MG/DL (83-110); POTASSIUM SERUM 3.4 MEQ/L (3.5-5.1); SODIUM LEVEL 142 MEQ/L (136-145)
[2016-12-02] MEDS ORDERED: POTASSIUM CHLORIDE 10 MEQ SR TABLET PO ONE (08:00)
[2016-12-02] MEDS: LACTOBACILLUS ACIDOPHILUS CAP (BACID) PO SCH ×2 (09:00→21:29)
[2016-12-02] MEDS: SUCRALFATE SUSP 1GM/10ML UD PO SCH ×4 (09:00→21:29)
[2016-12-02] MEDS: FAMOTIDINE 20 MG TAB PO SCH ×2 (09:00→21:29)
[2016-12-02] MEDS: VITAMIN D 1,000 INTERNATIONAL UNITS TABLET PO SCH (09:10)
[2016-12-02] MEDS: LISINOPRIL 20 MG TAB PO SCH (09:10)
[2016-12-02] MEDS: traMADol 50 MG TAB PO SCH ×2 (09:12→21:30)
[2016-12-02] MEDS: LIDOCAINE 5% (LIDODERM) PATCH TD SCH (09:12)
[2016-12-02] MEDS: amLODIPine 10 MG TAB PO SCH (09:13)
[2016-12-02] MEDS: NORCO, ANEXSIA 5/325MG TABLET (HYDROcodone/ACETAMINOPHEN) PO PRN ×2 (13:49→23:30)
--- NOTE | 2016-12-02 14:50 | IPNPDOC ---
Text Note Date of Service The patient was seen on 12/02/16. NOTE Subjective: Patient feels well. Abdominal pain is resolved. No nausea or vomiting.Tolerating diet. No hematochezia or melanotic stools since admission. Wants to go home soon. Objective: Vitals: (see below) General: No acute distress, laying comfortably in bed. HEENT: Moist mucous membranes. Neck: No JVD or lymphadenopathy Cardiac: RRR, No murmurs Pulm: Clear to auscultation b/l. No wheezing, rhonchi Abd: NT/ND + BS Ext: Minimal edema bilateral lower extremities. No cyanosis Labs (see below) Images: CT abdomen/pelvis Impression: 1. Status post colon resection and reanastomosis. 2. Enteritis pattern in the small and large bowel with mild mural thickening. No obstruction. 3. Evidence of a right-sided ureteropelvic junction obstruction with moderate right-sided hydronephrosis. 4. Large hiatal hernia. Colonoscopy 11/30/16 Impression: - Non-bleeding internal hemorrhoids. - Diverticulosis in the recto-sigmoid colon, in the sigmoid colon and in the descending colon. - The examination was otherwise normal on direct and retroflexion views. - No specimens collected. - The exam was otherwise normal to the cecum. Recommendation: - Patient has a contact number available for emergencies. The signs and symptoms of potential delayed complications were discussed with the patient. Return to normal activities tomorrow. Written discharge instructions were provided to the patient. - High fiber diet. - Continue present medications. - Repeat colonoscopy for symptoms only. - Return to referring physician. - The findings and recommendations were discussed with the patient's family. EGD 11/30/16 Impression: - Z-line regular, 38 cm from the incisors. - Small hiatal hernia. - No specimens collected. - The examination was otherwise normal. Recommendation: - Patient has a contact number available for emergencies. The signs and symptoms of potential delayed complications were discussed with the patient. Return to normal activities tomorrow. Written discharge instructions were provided to the patient. - Discharge patient to home. - Continue present medications. - Return to referring physician. - Follow an antireflux regimen. - The findings and recommendations were discussed with the patient's family. CTA Abdominal arteries 11/29/16 The patient is status post cholecystectomy. Two 1 cm ring-enhancing lesions are present in the inferior spleen. There is marked dilatation of the right renal pelvis with likely ureteropelvic junction obstruction. A 1 cm nodule is present in the left adrenal gland. This likely represents an adenoma. The liver, pancreas, right adrenal gland and left kidney are normal in appearance. The patient is status post left colectomy. There is no mass, adenopathy or free fluid. Atherosclerotic calcification is present in the abdominal aorta and iliac arteries. There is no definite occlusion of major abdominal and pelvis arteries. Distal small arteries are not well seen. There is no aneurysm. The visualized lungs are clear. Small and large intestine bowel wall thickness cannot be evaluated. IMPRESSION:1. The patient is status post cholecystectomy and left colectomy. 2. 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 3. Marked right hydronephrosis with likely ureteropelvic junction obstruction. CT Abd/pelvis 12/01/16 IMPRESSION: 1. The patient is status post cholecystectomy.2. There are two 1 cm enhancing lesions in the spleen. Differential diagnosis includes hemangioma, hamartoma , lymphoma and metastasis. 3. 1 cm left adrenal adenoma. 4. There is marked dilatation of the right renal pelvis with likely ureteropelvic junction obstruction. 5. The patient is status post hysterectomy. 6. The patient is status post left colectomy.7. Large hiatal hernia. 8. The patient is status post hysterectomy. CT Chesty 12/01/16 IMPRESSION:1. Right upper lobe scar.2. Cardiomegaly. 3. Large hiatal hernia. 4. 1 cm left adrenal mass most likely representing an adenoma. Assessment/Plan 1. Hematochezia with with a history of gastric ulcer. EGD/Colonoscopy 11/29 (see above) Hemoglobin is stable. Patient has not required any blood transfusions. Nausea and vomiting have resolved. Abdominal pain resolved as well.Protonix changed to pepcid BID. Will obtain gastric emptying study today. Hematochezia likely secondary to diverticulosis and has resolved. 2. 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 CT Chest/Abd/ pelvis (see above). No notable findings on Colonoscopy, and I did speak with Dr. Bran who does not note any lesions in the liver. I discussed with Dr. Anguiano who believes that these are more of hypervascular lesions and recommends a CAT scan the abdomen with contrast versus ultrasound in 4 months as patient has a high propensity to bleed if a biopsy is done. 3. Hypokalemia/hypomagnesemia- replaced. Will repeat BMP at 2pm. 4. Chronic anemia- hemoglobin is at the patient's baseline. Stable. No need for gestational this time. 5. Leukocytosis- resolved. Likely secondary to upper GI bleed. No infectious etiology at this time. 6. History of C. difficile- has been treated with nothing by mouth palpation. Resolved. GI panel negative. Deficit discontinued. 7. Insomnia- on trazodone 8. Vitamin D deficiency- on replacement 9. ? Early signs of dementia; will need close follow-up. 10. 10 pound weight loss- questionable related to patient's recent treatment with C. difficile, recent hospitalization, nausea/vomiting. Had EGD/Colonscopy ( see above). 11. Chronic right-sided ureteropelvic junction obstruction with moderate right- sided hydronephrosis - I discussed these findings with Dr. Sousa on 11/28/16 who also reviewed the CAT scan imaging. Dr. Sousa recommended outpatient follow-up and no need for intervention as this is likely a chronic issue that is not causing any issues at this time. 12. Acute kidney injury- resolved with IV fluids DVT prophy: SCDs Discussed the above with daughter, Catherine. VS,Butch, I+O VS, Butch, I+O Laboratory Tests 12/02/16 06:13 Red Blood Count 3.50 L, Mean Corpuscular Volume 91.2, Mean Corpuscular Hemoglobin 30.6, Mean Corpuscular Hemoglobin Concent 33.6, Red Cell Distribution Width 13.6, Calcium Level 8.2 L Vital Signs Date Time Temp Pulse Resp B/P (MAP) Pulse Ox O2 Delivery O2 Flow Rate FiO2 12/02/16 13:49 20 12/02/16 10:08 Room Air 12/02/16 09:13 77 148/71 12/02/16 06:00 97.6 96 I&O- Last 24 Hours up to 6 AM 12/02/16 06:00 Intake Total 2760 ml Output Total 1950 ml Balance 810 ml NATALIA OQUENDO MD Dec 02, 2016 14:50
--- NOTE | 2016-12-02 15:58 | REP ---
Gastric emptying nuclear scintigraphy: History: Question gastric para cyst. Technique: 1.1 mCi of technetium-99m sulfur colloid was ingested in two scrambled eggs and 6 ounces of water and sequential anterior and posterior images are acquired for an 89-minute imaging observation period. Regions of interest are drawn around the stomach to plot gastric emptying. Scintigraphic findings: Expected T1/2 is 90 minutes. 41 % emptying is observed in this patient during the 89-minute imaging observation period, for a calculated T1/2 in this patient of 111 minutes. Impression: Minimally delayed gastric emptying. Signed by Javier Starkey MD 12/02/2016 03:49 P
[2016-12-02] MEDS: **NOTE PATIENT COMMENT** MISC XX SCH (21:00)
[2016-12-02] MEDS: traZODone 50 MG TAB PO SCH (21:29)
[2016-12-02] MEDS: MIRTAZAPINE 15 MG TAB PO SCH (21:29)
[2016-12-02] MEDS: BISOPROLOL FUM 2.5 MG PER 1/2TAB PO SCH (21:29)
[2016-12-02 22:00] VITALS: BP 160/71
[2016-12-03 06:00] VITALS: BP 143/65
[2016-12-03 06:26] LABS: MEAN CORPUSCULAR HEMOGLOBIN 30.8 pg (27.0-33.0); MEAN CORPUSCULAR HGB CONC 34.2 g/dl (32.0-36.5); MEAN CORPUSCULAR VOLUME 90.1 fl (80.0-96.0); RED CELL DISTRIBUTION WIDTH 13.9 % (11.5-14.5); WHITE BLOOD COUNT 5.8 K/mm3 (4.0-10.0)
[2016-12-03 06:38] LABS: ANION GAP 7 MEQ/L (8-16); BLOOD UREA NITROGEN 18 MG/DL (7-18); CALCIUM LEVEL 8.7 MG/DL (8.8-10.2); CARBON DIOXIDE LEVEL 26 MEQ/L (21-32); CHLORIDE LEVEL 109 MEQ/L (98-107); CREATININE FOR GFR 0.58 MG/DL (0.55-1.02); GLOMERULAR FILTRATION RATE > 60.0 (>32); GLUCOSE, FASTING 95 MG/DL (83-110); POTASSIUM SERUM 3.7 MEQ/L (3.5-5.1); SODIUM LEVEL 142 MEQ/L (136-145)
[2016-12-03 08:00] VITALS: BP 143/65
[2016-12-03] MEDS: FAMOTIDINE 20 MG TAB PO SCH (08:00)
[2016-12-03] MEDS: SUCRALFATE SUSP 1GM/10ML UD PO SCH (08:00)
[2016-12-03] MEDS: LISINOPRIL 20 MG TAB PO SCH (08:00)
[2016-12-03] MEDS: LACTOBACILLUS ACIDOPHILUS CAP (BACID) PO SCH (08:01)
[2016-12-03] MEDS: traMADol 50 MG TAB PO SCH (08:01)
[2016-12-03] MEDS: amLODIPine 10 MG TAB PO SCH (08:01)
[2016-12-03] MEDS: VITAMIN D 1,000 INTERNATIONAL UNITS TABLET PO SCH (08:01)
[2016-12-03] MEDS: LIDOCAINE 5% (LIDODERM) PATCH TD SCH (08:05)
[2016-12-03] MEDS ORDERED: FAMO20TA PO (11:07)
[2016-12-03] MEDS ORDERED: TRAM50TA2 PO (11:07)
--- NOTE | 2016-12-03 21:23 | DSES ---
DATE OF ADMISSION: 11/27/2016 DATE OF DISCHARGE: 12/03/2016 SPECIALISTS INVOLVED IN CARE: Dr. Perea PROCEDURES PERFORMED DURING STAY: EGD and colonoscopy. DISCHARGE DIAGNOSES: 1. Hematochezia with history of gastric ulcer. 2. 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 3. Hypokalemia. 4. Hypomagnesemia. 5. Chronic anemia. 6. Leukocytosis. 7. History of Clostridium difficile. 8. Insomnia. 9. Vitamin D deficiency. 10. Early signs of dementia. 11. Recent 10-pound weight loss. 12. 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 13. Acute kidney injury. SUMMARY OF HOSPITALIZATION: This is an 86-year-old who presented with nausea, vomiting, and blood diarrhea, accompanied by her daughter. She had abdominal pain. She had previous history of Clostridium (C) difficile. Was admitted to the hospitalist service. Did not require any blood transfusions during her stay. Had colonoscopy and esophagogastroduodenoscopy (EGD) done by Dr. Perea. Colonoscopy showed nonbleeding internal hemorrhoids, diverticulosis. EGD showed small hiatal hernia. Patient diet advanced, which she tolerated. Did have a gastric emptying study completed during her stay, which showed minimal delayed gastric emptying. She was seen by physical therapy and thought to be appropriate for discharge home. On the day of discharge, temperature 97.6, pulse 70, respiratory rate 16, blood pressure 143/65, 92% on room air. She is awake, appropriately interactive, pleasantly conversant. Breathing is symmetrical and rested. Heart is distant sounding. White cell count 5.8, hemoglobin 11.4, platelets of 204. BUN 18, creatinine 0.58. DISCHARGE INSTRUCTIONS: Followup with Dr. Irma Fuentes within 1 week. Activity as tolerated. High-fiber diet. Continue with famotidine 20 mg by mouth twice daily, tramadol 50 mg by mouth twice daily, not to exceed two per day, [place] one tablet every 4 hours as needed for pain, Norvasc 10 mg by mouth daily, Zebeta 2.5 mg by mouth daily at bedtime, vitamin D supplement, Lidoderm topically daily as needed, lisinopril 20 mg by mouth daily, mirtazapine in the form of Remeron 15 mg by mouth daily at bedtime, Zofran 4 mg every 8 hours as needed for nausea, trazodone 50 mg by mouth daily at bedtime, and yeast supplement twice daily as deemed necessary. Discontinue home dosing of vancomycin. MTDD
== END 2016-12-03 13:20 | disposition home or self-care (01) | DRG 378 ==
LOC: M ED 08:44 → M ED INP 12:12 → M PCU 15:04 → M MS5PR 11-28 12:40
PROVIDERS: ADMIT Internal Medicine; ATTEND Internal Medicine
PROC: 0DJD8ZZ Inspection of Lower Intestinal Tract, Via Natural or Artificial Opening Endoscopic (ICD-10-PCS; 2016-11-29)
PROC: 0DJ08ZZ Inspection of Upper Intestinal Tract, Via Natural or Artificial Opening Endoscopic (ICD-10-PCS; principal; 2016-11-29 15:30)
DX: K92.1 Melena (principal); N17.9 Acute kidney failure, unspecified; E87.6 Hypokalemia; D72.829 Elevated white blood cell count, unspecified; G47.00 Insomnia, unspecified; F03.90 Unspecified dementia, unspecified severity, without behavioral disturbance, psychotic disturbance, mood disturbance, and anxiety; M54.9 Dorsalgia, unspecified; E55.9 Vitamin D deficiency, unspecified; R63.4 Abnormal weight loss; Z79.899 Other long term (current) drug therapy; Z88.1 Allergy status to other antibiotic agents; Z88.0 Allergy status to penicillin; Z87.891 Personal history of nicotine dependence; K44.9 Diaphragmatic hernia without obstruction or gangrene; K64.0 First degree hemorrhoids; K57.30 Diverticulosis of large intestine without perforation or abscess without bleeding; R93.8 Abnormal findings on diagnostic imaging of other specified body structures

== ENCOUNTER → 2018-08-05 | Outpatient (CLI) | payer MEDICARE, OTHER ==
[~2018-08-05] MED LIST changes: -AMLO10TA2 PO; +AMLO10TA5 PO; +BISO5TAB5 PO; +FAMO20TA PO; +FLOR250C PO; +LIDO5DIS41 TD; +MIRT15TA3 PO; -PANT40TA2 PO; +PANT40TA3 PO; +TRAZ-160 PO; +VANC125C2 PO; +VITA1CAP2 PO; -ZOFR20TA PO; +ZOFR4TAB14 PO; +ZOFR4TAB16 PO; -ZOFR4TAB3 PO
[2018-08-05 18:01] LABS: HEMATOCRIT 35.6 % (36.0-47.0); HEMOGLOBIN 10.7 g/dl (12.0-15.5); MEAN CORPUSCULAR HEMOGLOBIN 25.1 pg (27.0-33.0); MEAN CORPUSCULAR HGB CONC 30.1 g/dl (32.0-36.5); MEAN CORPUSCULAR VOLUME 83.6 fl (80.0-96.0); PLATELET COUNT, AUTOMATED 264 10^3/uL (150-450); RED BLOOD COUNT 4.26 10^6/uL (4.00-5.40); WHITE BLOOD COUNT 6.7 10^3/uL (4.0-10.0)
== END ==
LOC: M LAB 16:46
PROVIDERS: ATTEND Student in an Organized Health Care Education/Training Program
DX: K92.0 Hematemesis (principal)

== ENCOUNTER → 2018-09-29 | Outpatient (CLI) | payer MEDICARE, OTHER ==
[~2018-09-29] MED LIST changes: +AFRI0.058; +FURO40TA2 PO; -NORC10TA21 PO; +NORC1TAB5 PO; +PANT-23 PO; +REME15TA PO; -TRAZ-160 PO; +TRAZ-252 PO; +TYLETAB14 PO; -VANC125C2 PO; +VANC125C3 PO; +VITA-183 PO; -VITA1CAP2 PO
--- NOTE | 2018-09-29 12:10 | REP ---
CT Head without contrast HISTORY: Trauma COMPARISON: None Areas of decreased attenuation are present in the periventricular and subcortical white matter. This represents small-vessel ischemic disease. There is no intraparenchymal hemorrhage, acute infarct, mass or midline shift. The ventricular system and cortical sulci are dilated consistent with mild volume loss. There is no extra cerebral collection. There is no fracture. 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 A mass is present in the right maxillary sinus and nasal passage. IMPRESSION: 1. Small vessel ischemic disease. 2. Mild volume loss. 3. There is a mass in the right maxillary sinus and nasal passage. Please refer to maxillofacial CT performed 09/29/2018. Electronically Signed by Uli Bran MD 09/29/2018 12:02 P
--- NOTE | 2018-09-29 12:41 | REP ---
MAXILLOFACIAL CT WITHOUT CONTRAST: HISTORY: Trauma. Soft tissue density is present in the right nasal passage, right maxillary sinus, , and right ethmoid sinus. There is erosion of the right uncinate process and partial erosion of the right middle and inferior nasal turbinates, nasal septum, ethmoid sinus, and anterior wall of the right sphenoid sinus and cribriform plate. There is complete opacification of the right frontal and right frontal sphenoid sinus. Minimal mucosal thickening is present in the left sphenoid sinus. 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 The left maxillary and frontal sinuses are clear. Contents of the orbits are normal. There is a fracture of the nasal bone. IMPRESSION: 1. There is soft tissue density in the right nasal passage, right maxillary and ethmoid sinus with associated bone erosion. 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 2. Nasal bone fracture. Electronically Signed by Uli Bran MD 09/29/2018 12:52 P
== END ==
LOC: M RAD 11:02
PROVIDERS: ATTEND Family Medicine
DX: S02.2XXA Fracture of nasal bones, initial encounter for closed fracture (principal); S09.93XA Unspecified injury of face, initial encounter; W18.09XA Striking against other object with subsequent fall, initial encounter; R93.89 Abnormal findings on diagnostic imaging of other specified body structures; Y92.009 Unspecified place in unspecified non-institutional (private) residence as the place of occurrence of the external cause
CPT/HCPCS: 70450; 70486; G0463

== ENCOUNTER → 2018-10-13 | Outpatient (CLI) | payer MEDICARE, OTHER ==
[~2018-10-13] MED LIST changes: +TRAZ-160 PO; -TRAZ-252 PO
[2018-10-13 13:18] LABS: BLOOD UREA NITROGEN 32 MG/DL (7-18); CREATININE FOR GFR 0.77 MG/DL (0.55-1.30); GLOMERULAR FILTRATION RATE > 60.0 (>32)
== END ==
LOC: M LAB 11:43
PROVIDERS: ATTEND Specialist
DX: J33.0 Polyp of nasal cavity (principal)

== ENCOUNTER → 2018-10-13 | Outpatient (REF) | payer MEDICARE, OTHER | LOC: M LAB REF 13:19 | PROVIDERS: ATTEND Specialist | DX: J33.0 Polyp of nasal cavity (principal) ==

== ENCOUNTER 2018-10-19 10:45 | Inpatient (IN) | payer MEDICARE, OTHER ==
[~2018-10-19] VITALS: Ht 160 cm; Wt 56.7 kg
[~2018-10-19 10:45] MED LIST changes: -AFRI0.058; -FURO40TA2 PO; -PANT-23 PO; -REME15TA PO; -TRAZ-160 PO; +TRAZ-252 PO; -TYLETAB14 PO
[2018-10-19 11:38] LABS: BASO # 0.1 10^3/uL (0.0-0.2); BASO % 0.6 % (0.0-1.0); EOS % 0.3 % (0.0-3.0); HEMATOCRIT 41.5 % (36.0-47.0); HEMOGLOBIN 12.8 g/dl (12.0-15.5); LYMPH # 0.9 10^3/uL (1.5-4.5); LYMPH % 10.5 % (24.0-44.0); MEAN CORPUSCULAR HEMOGLOBIN 25.1 pg (27.0-33.0); MEAN CORPUSCULAR HGB CONC 30.8 g/dl (32.0-36.5); MEAN CORPUSCULAR VOLUME 81.4 fl (80.0-96.0); MONO # 0.6 10^3/uL (0.0-0.8); MONO % 7.1 % (0.0-5.0); NEUTROPHILS # 7.3 10^3/uL (1.8-7.7); NEUTROPHILS % 81.3 % (36.0-66.0); PLATELET COUNT, AUTOMATED 402 10^3/uL (150-450)
[2018-10-19] MEDS ORDERED: ISOVUE-370 76% 100ML VIAL (Q9967) As Ordered ONE (11:42)
[2018-10-19] MEDS ORDERED: NS 1,000 ML IV ONE (11:45)
[2018-10-19] MEDS ORDERED: MORPHINE 2 MG/ML 1ML SYRINGE (J2270) IV ONE (11:45)
[2018-10-19] MEDS ORDERED: ONDANSETRON 4MG/2ML VIAL (J2405) IV ONE (11:45)
[2018-10-19] MEDS ORDERED: LIDOCAINE 2% 5ML JELLY UROJET TOP ONE (11:45)
[2018-10-19 12:01] LABS: INR 0.99; PROTHROMBIN TIME 13.2 SECONDS (12.1-14.4)
[2018-10-19 12:02] LABS: PARTIAL THROMBOPLASTIN TIME 27.5 SECONDS (25.4-37.6)
[2018-10-19 12:09] LABS: ALBUMIN 3.7 GM/DL (3.2-5.2); ALT/SGPT 14 U/L (12-78); BILIRUBIN,DIRECT 0.2 MG/DL (0.0-0.2); BILIRUBIN,TOTAL 0.7 MG/DL (0.2-1.0); CPK CREATINE PHOSPHOKINASE 57 U/L (26-192); LIPASE 79 U/L (73-393); MB/CK RELATIVE INDEX 6.67 (< OR =4); TOTAL PROTEIN 7.4 GM/DL (6.4-8.2); TROPONIN I < 0.02 NG/ML (< 0.10)
--- NOTE | 2018-10-19 12:47 | REP ---
CT ABDOMEN AND PELVIS WITH IV CONTRAST: TECHNIQUE: Axial contrast enhanced images from the lung bases to the pubic symphysis using 100 mL Isovue 370 intravenous contrast material with multiplanar reformations. Visualized lung bases demonstrate scattered fibrotic change. There is a large hiatal hernia. Small bowel obstruction is noted in the right lower quadrant with multiple moderately dilated small bowel loops in the pelvis. There is a transition point in the caliber of the distal small bowel in the right lower quadrant consistent with focal obstruction. The colon is relatively collapsed diffusely. There is intrahepatic and extrahepatic biliary dilatation appearing similar to the prior study of 12/01/2016. No liver mass is seen. Spleen demonstrates two stable hyperdense nodules inferiorly. The adrenals are thickened and there is a small nodule in the posterior left adrenal gland, which is stable. The pancreas demonstrates no evidence of a mass. Right renal pelvis is mild to moderately dilated but has decreased in caliber since the prior study of 12/01/2016. There is mild scattered mesenteric edema. The urinary bladder is not well distended and not optimally evaluated. There are degenerative changes of the spine and curvature of the thoracolumbar spine convex to the left. IMPRESSION: Distal small bowel obstruction. No free air. Scattered mesenteric edema diffusely. There are other stable chronic findings as discussed in detail above with no other acute abnormality detected. Electronically Signed by Chencho Tong MD 10/20/2018 11:57 A
[2018-10-19] MEDS ORDERED: TRAM50TA2 PO (12:58)
[2018-10-19] MEDS ORDERED: REME15TA PO (12:58)
[2018-10-19] MEDS ORDERED: AFRI0.058 (12:58)
[2018-10-19] MEDS ORDERED: PANT-23 PO (12:58)
[2018-10-19] MEDS ORDERED: TYLETAB14 PO (12:58)
[2018-10-19] MEDS ORDERED: ATEN50TA2 PO (12:58)
[2018-10-19] MEDS ORDERED: FURO40TA2 PO (13:00)
[2018-10-19 13:08] LABS: FREE T4 1.22 NG/DL (0.76-1.46)
[2018-10-19] MEDS ORDERED: HEPARIN SOD (PORCINE) 5000 UNITS/ML VIAL IV ONE (13:15)
--- NOTE | 2018-10-19 13:43 | REP ---
CHEST, SINGLE VIEW: Single view of the chest is performed. There is cardiomegaly. No acute infiltrate is seen. There is calcification of the thoracic aorta. The mediastinal silhouette is otherwise unremarkable. IMPRESSION: Cardiomegaly without evidence of acute infiltrate. Electronically Signed by Chencho Tong MD 10/20/2018 11:58 A
[2018-10-19] MEDS ORDERED: CETACAINE SPRAY 5GM TOP ONE (13:45)
[2018-10-19 13:49] LABS: AMYLASE 31 U/L (25-115)
[2018-10-19] MEDS: HEPARIN DRIP 25,000 UNITS in APPROPRIATE DILUENT 1 EA IV SCH (14:05)
--- NOTE | 2018-10-19 15:16 | HPEPDOC ---
General Date of Admission Oct 19, 2018 at 14:37 Date of Service: Oct 19, 2018 Primary Care Physician: Nadia Camara DO Attending Physician: EMILY FERGUSON MD Chief Complaint The patient is a 88-year-old female admitted with a reason for visit of New Onset Atrial Fibrillation,Small Bowel Obstruct. Source: Patient, Family, RN/MD Exam Limitations: Clinical conditions Timing/Duration: Unsure Severity: Moderate Associated Symptoms: Loss of appetite, Malaise, Nausea, Vomiting, Weakness, Dizziness History of Present Illness Patient is an 88-year-old female, past medical history significant for hypertension, GERD, diverticulitis, colitis, sigmoid diverticulum, prior multiple abdominal surgeries including bowel resection and colostomy reversal, presenting to the emergency room today on account of extreme weakness. Patient's daughter states patient fell a few weeks ago, had a bloody nose for which he did not seek attention for, but the next day had significant facial discoloration. The followed up with her primary care doctor who ordered a CT of the patient's head and face, which showed a broken nose, and also right sinus mass. Last Friday. Patient had a biopsy and has since then been weak and tired. Patient also reports anorexia, nausea and vomiting. She denied any fever but had some chills. Today while she was at work daughter states patient called her daughter and complained of severe weakness. Daughter decided to bring her to the ED On arrival to the emergency room. Telemetry showed patient was in atrial fibrillation which was a new diagnosis for her. CT abdomen and pelvis showed small bowel obstruction to the right lower quadrant, biliary dilatation which was old, right renal pelvis dilatation, with mesenteric edema. Patient complained of abdominal pain and nasal congestion. The decision was made therefore to admit patient for further evaluation and management. Home Medications Scheduled Amlodipine Besylate (Amlodipine Besylate) 10 Mg Tab, 10 MG PO DAILY, (Reported) Atenolol (Atenolol) 50 Mg Tablet, 75 MG PO DAILY, (Reported) Furosemide (Furosemide) 40 Mg Tablet, 40 MG PO DAILY, (Reported) Lisinopril (Lisinopril) 20 Mg Tab, 20 MG PO DAILY, (Reported) Mirtazapine (Remeron) 15 Mg Tablet, 15 MG PO QHS, (Reported) Pantoprazole Sodium (Pantoprazole Sodium) 40 Mg Tablet.dr, 40 MG PO BID, (Reported) Saccharomyces Boulardii (Florastor) 250 Mg Cap, 250 MG PO BID, (Reported) Tramadol HCl (Tramadol HCl) 50 Mg Tablet, 50 MG PO TID, (Reported) Scheduled PRN Acetaminophen with Codeine (Tylenol with Codeine #3 Tablet) 1 Each Tablet, 1 TAB PO Q4H PRN for PAIN, (Reported) Oxymetazoline HCl (Afrin) 15 Ml [place], 2 SPRAY NA Q12H PRN for NASAL CONGESTION, (Reported) Allergies Coded Allergies: Penicillins (Verified Adverse Reaction, Mild, N/V, 10/19/18) "REALLY SICK" ciprofloxacin (Verified Adverse Reaction, Mild, N/V, 10/19/18) "REALLY SICK" Past Medical History Medical History Hypertension GERD H. hernia Degenerative disc disease Diverticulitis Sigmoid diverticulum Surgical History Bowel resection Colostomy and reversal Cholecystectomy Hysterectomy Social History * Smoker: Denies Alcohol: Denies Drugs: denies Significant family history with cancer, diabetes mellitus, could've vascular disease A-FIB/CHADSVASC A-FIB History Current/History of A-Fib/PAF?: Yes Current PO Anticoag Therapy: Yes Age/Risk Factor Scoring CHADSVASC: CHADSVASC Response (Comments) Value Age Risk Factor Age >/= 75 years old 2 Total 2 Treatment Treatment ordered: Heparin IV bridge Therapy Review of Systems Other systems A pertinent 10 point review of systems is completed, negative except as stated in history of presenting illness Physical Examination General Exam: Positive: Alert, Cooperative, No Acute Distress Eye Exam: Positive: PERRLA, Conjunctiva & lids normal ENT Exam: Positive: Other ENT (hard of hearing); Negative: Atraumatic (healing nasal scar), Nares Patent (congested) Neck Exam: Positive: Supple; Negative: JVD, thyromegaly Chest Exam: Positive: Clear to auscultation, Normal air movement; Negative: Rales, Rhonchi Heart Exam: Positive: Tachycardic, Irregular Rhythm Telemetry: Positive: Atrial fibrillation Abdomen Exam: Positive: BS Hypoactive, Soft, Tenderness Extremity Exam: Negative: Clubbing, Cyanosis, Edema Skin Exam: Positive: Nl turgor and temperature; Negative: Rash, Breakdown Neuro Exam: Positive: Normal Speech Psych Exam: Positive: Mental status NL, Oriented x 3 Vital Signs Vital Signs Date Time Temp Pulse Resp B/P (MAP) Pulse Ox O2 Delivery O2 Flow Rate FiO2 10/19/18 14:00 91 130/64 (86) 97 Room Air 10/19/18 12:20 22 10/19/18 10:46 96.0 Laboratory Data Labs 24H Laboratory Tests 2 10/19/18 11:23: Prothrombin Time 13.2, Prothromb Time International Ratio 0.99, Activated Partial Thromboplast Time 27.5, Lactic Acid Level 2.9*H 10/19/18 11:24: Immature Granulocyte % (Auto) 0.2, White Blood Count 9.0, Red Blood Count 5.10, Hemoglobin 12.8, Hematocrit 41.5, Mean Corpuscular Volume 81.4, Mean Corpuscular Hemoglobin 25.1L, Mean Corpuscular Hemoglobin Concent 30.8L, Red Cell Distribution Width 17.2H, Platelet Count 402, Neutrophils (%) (Auto) 81.3H, Lymphocytes (%) (Auto) 10.5L, Monocytes (%) (Auto) 7.1H, Eosinophils (%) (Auto) 0.3, Basophils (%) (Auto) 0.6, Neutrophils # (Auto) 7.3, Lymphocytes # (Auto) 0.9L, Monocytes # (Auto) 0.6, Eosinophils # (Auto) 0.0, Basophils # (Auto) 0.1, Nucleated Red Blood Cells % (auto) 0.0, Aspartate Amino Transf (AST/SGOT) 18, Alanine Aminotransferase (ALT/SGPT) 14, Alkaline Phosphatase 104, Total Bilirubin 0.7, Direct Bilirubin 0.2, Total Creatine Kinase 57, Creatine Kinase MB 4.0H, Creatine Kinase MB Relative Index 6.67H, Troponin I < 0.02, Total Protein 7.4, Albumin 3.7, Albumin/Globulin Ratio 1.00, Amylase Level 31, Lipase 79, Thyroid Stimulating Hormone (TSH) 3.640, Free Thyroxine 1.22 10/19/18 11:31: POC Glucose (Misc Panel) 170H, POC Sodium (Misc Panel) 139, POC Potassium (Misc Panel) 4.0, POC Chloride (Misc Panel) 104, POC Total CO2 (Misc Panel) 22.0L, POC Blood Urea Nitrogen (Misc Panel 31H, POC Ionized Calcium (Misc Panel) 4.3L, POC Creatinine (Misc Panel) 0.8, POC Hematocrit (Misc Panel) 42.0 10/19/18 13:50: Urine Color YELLOW, Urine Appearance HAZY, Urine pH 5.0, Urine Specific [place] 1.060, Urine Protein NEGATIVE, Urine Glucose (UA) NEGATIVE, Urine Ketones TRACEH, Urine Blood NEGATIVE, Urine Nitrite POSITIVEH, Urine Bilirubin NEGATIVE, Urine Urobilinogen 0.2, Urine Leukocyte Esterase NEGATIVE, Urine WBC (Auto) 1, Urine RBC (Auto) 2, Urine Hyaline Casts (Auto) 0, Urine Bacteria (Auto) 2+H, Urine Squamous Epithelial Cells 0, Urine Mucus (Auto) SMALL, Urine Sperm (Auto) CBC/BMP Laboratory Tests 10/19/18 11:24 Red Blood Count 5.10, Mean Corpuscular Volume 81.4, Mean Corpuscular Hemoglobin 25.1 L, Mean Corpuscular Hemoglobin Concent 30.8 L, Red Cell Distribution Width 17.2 H, Neutrophils (%) (Auto) 81.3 H, Lymphocytes (%) (Auto) 10.5 L, Monocytes (%) (Auto) 7.1 H, Eosinophils (%) (Auto) 0.3, Basophils (%) (Auto) 0.6, Neutrophils # (Auto) 7.3, Lymphocytes # (Auto) 0.9 L, Monocytes # (Auto) 0.6, Eosinophils # (Auto) 0.0, Basophils # (Auto) 0.1 Microbiology Microbiology 10/19/18 Blood Culture, Received Pending 10/19/18 Blood Culture, Received Pending 10/19/18 Urine Culture, Received Pending Problems (1) Small bowel obstruction Status: Acute Problem Text: -NG tube initially ordered but not placed due to nasal obstruction -Keep NPO with continous IVF -Surgery has been consulted for input and recommendations for management -zofran as needed for nausea and vomiting (2) New onset atrial fibrillation Status: Acute Problem Text: -lopressor IV Q6 for rate control -2D echo to evaluate EF r/o regional wall motion abnormalities -chesk TSH -continuous telemetry for close monitoring and adjustment of management (3) Mass of nasal sinus Problem Text: -ENT specialist has been called for evaluation (Abriss) -He agrees MRI of brain/orbits to be completed now to more clearly delineate type/extent of mass -biopsy report pending -avoid NGT for now -Follow other recommendations from ENT (4) DDD (degenerative disc disease) Problem Text: -presenting with significant weakness S/P fall -consult PT/OT for evaluation, recommendations (5) DVT prophylaxis Problem Text: -Heparin (6) Advance care planning Problem Text: -code status is full code -anticipate discharge home post resolution of SBO Plan / VTE VTE Prophylaxis Ordered?: Yes Plan Plan Patient seen and examined at bedside and I agree with the findings and the plan of the care as documented by [employer] REGULATOR REPAIRER HELPER Case discussed with the ED physician and GAS REGULATOR REPAIRER HELPER also spoke with patient's daughter and management was explained NIEVES EDGAR Oct 19, 2018 15:15 EMILY FERGUSON MD Oct 19, 2018 15:42
[2018-10-19] MEDS: NS 1,000 ML IV SCH ×2 (15:19→19:36)
[2018-10-19] MEDS: METOPROLOL 5 MG/5 ML VIAL IV SCH ×2 (15:20→20:29)
--- NOTE | 2018-10-19 15:20 | ECGEPIP ---
[facility] - ED Test Date: 2018-10-19 Pat Name: EULA GREENE Department: Room: - Gender: Female Ccie: uzair : 1930 Requested By: Zeina Romero Order Number: [id number] Reading MD: Celine Ware Measurements Intervals [place] Rate: 83 P: IN: -1 QRS: 48 QRSD: 81 T: 27 QT: 374 QTc: 440 Interpretive Statements ATRIAL FIBRILLATION NONSPECIFIC ST & T-WAVE ABNORMALITY ABNORMAL RHYTHM ECG NO PRIOR FOR COMPARISON Electronically Signed on 10-19-2018 15:20:05 EDT by Celine Ware
[2018-10-19 16:40] VITALS: BP 138/66
[2018-10-19] MEDS ORDERED: HEPARIN SOD (PORCINE) 5000 UNITS/ML VIAL IV PRN (16:45)
[2018-10-19] MEDS: MORPHINE 4 MG/ML 1ML VIAL/SYRINGE (J2270) IV PRN ×2 (17:33→21:42)
[2018-10-19] MEDS: PREPARATION H SUPP (HEMORRHOID) PR SCH (21:00)
[2018-10-19] MEDS: DOCUSATE SODIUM 100 MG CAP PO SCH (21:42)
[2018-10-19 22:00] VITALS: BP 117/57
[2018-10-20] MEDS: METOPROLOL TART 25 MG TABLET PO SCH ×4 (00:40→17:14)
[2018-10-20 02:00] VITALS: BP 117/58
[2018-10-20 04:17] LABS: HEMATOCRIT 32.1 % (36.0-47.0); MEAN CORPUSCULAR HEMOGLOBIN 25.7 pg (27.0-33.0); MEAN CORPUSCULAR HGB CONC 29.9 g/dl (32.0-36.5); MEAN CORPUSCULAR VOLUME 86.1 fl (80.0-96.0); RED BLOOD COUNT 3.73 10^6/uL (4.00-5.40); WHITE BLOOD COUNT 6.3 10^3/uL (4.0-10.0)
[2018-10-20 04:20] LABS: HEMOGLOBIN 9.6 g/dl (12.0-15.5)
[2018-10-20 04:21] LABS: PLATELET COUNT, AUTOMATED 235 10^3/uL (150-450)
[2018-10-20 04:49] LABS: ALBUMIN 2.6 GM/DL (3.2-5.2); ALT/SGPT 12 U/L (12-78); BILIRUBIN,TOTAL 0.3 MG/DL (0.2-1.0); BLOOD UREA NITROGEN 21 MG/DL (7-18); CALCIUM LEVEL 7.5 MG/DL (8.8-10.2); CARBON DIOXIDE LEVEL 22 MEQ/L (21-32); CHLORIDE LEVEL 114 MEQ/L (98-107); CREATININE FOR GFR 0.72 MG/DL (0.55-1.30); GLOMERULAR FILTRATION RATE > 60.0 (>32); GLUCOSE, FASTING 86 MG/DL (70-100); POTASSIUM SERUM 3.4 MEQ/L (3.5-5.1); SODIUM LEVEL 144 MEQ/L (136-145); TOTAL PROTEIN 5.5 GM/DL (6.4-8.2)
--- NOTE | 2018-10-20 05:21 | CR ---
DATE OF CONSULTATION: 10/19/2018 REASON FOR CONSULTATION: Small-bowel obstruction. HISTORY OF PRESENT ILLNESS: The patient is an 88-year-old female who has an interesting history over the last couple weeks. She was evaluated by ENT for some bloody nose and essentially trauma to her nose and was found have a mass in her right-hand sinus and this was displacing the nasal cavity to the left-hand side. She states that she is stuffy all of the time and has been really quite weak and tired for a couple weeks now but then over the last few days prior to admission she has had some nausea and vomiting, has had bowel movements even this morning. She has had some flatus, states that she has developed some crampy abdominal pain. She was fatigue in appearance. She was evaluated and was found to have new-onset atrial fibrillation (A-fib). I was asked to see her for additional recommendations. The patient was started on intravenous (IV) heparin and given a heparin bolus. PAST MEDICAL HISTORY: Past medical history is significant for history of: 1. Hypertension. 2. History of gastroesophageal reflux disease. 3. History of hiatal hernia. 4. History of degenerative disk disease. 5. History of diverticulitis. 6. History of sigmoid diverticulosis. 7. History of the sigmoid resection and colostomy reversal. 8. History of cholecystectomy. 9. History of hysterectomy. MEDICATIONS: - amlodipine - atenolol - furosemide - Lasix - Remeron - pantoprazole - Florastor - tramadol PHYSICAL EXAMINATION: Physical exam reveals an 88-year-old female who looks stated age. HEENT: Unremarkable other than complaining of pressure and discomfort in the right sinus area. Lungs: Clear to auscultations. Heart: Heart is regular. Abdomen: Softly distended but she is tender with some minimal palpation without significant guarding or rebound. LABORATORY DATA She does have a slightly elevated white count, write count was 9,000. Her lactic acid was initially high but it had dropped down nicely in the 4-hour destin. IMPRESSION AND PLAN: The patient has a small bowel obstruction. Fortunately, because she has had some bowel movements this morning and has had a little bit of flatus this afternoon and tonight it may be that she will get away without a nasogastric (NG) tube decompression. I would like to have an NG tube in her but two issues are prominent, one of which is her sinus mass makes NG tube insertion more difficult. The nurses attempted this earlier tonight and they had difficulty with this. I do feel that if we needed to try again there it reasonable to proceed with another attempt; however, she is on significant anticoagulation. Thus I would recommend with her recurrent anticoagulation at most we should keep her nothing by mouth, IV fluids, IV hydration and see how she is doing in the morning if she is not resolving her obstructive looking picture we may reconsider placing an NG tube.
[2018-10-20 06:00] VITALS: BP 121/60
[2018-10-20] MEDS: MORPHINE 4 MG/ML 1ML VIAL/SYRINGE (J2270) IV PRN ×3 (06:31→19:34)
[2018-10-20] MEDS: ONDANSETRON 4MG/2ML VIAL (J2405) IV PRN ×2 (06:58→17:14)
--- NOTE | 2018-10-20 08:57 | IPNPDOC ---
Text Note Date of Service The patient was seen on 10/20/18. NOTE This is an 88 yo who presented to us two weeks ago after a CT was done to evla uate facial trauma She has sigfiicant nasal obstruction for some time. On CT she has a large expansile mass filling the right nasal cavity and displaceing the nasal septum into the left with significant obstruction here as well. The mass was found to be extremely vascular at the time of biopsy. 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 Two thoughts DO NOT ATTEMPT to put an NG tube in the RIGHT side !!!! We might be able to get one in the left with some topical prepartaion and local anesthesia, but now that she is anticoagulated, this may be somewhat complicated. If it must be done, heparin should be stopped and preparation of the nose with decongestants and topical anesthesia would be useful The other thought is that this is a very difficult issue with the tissue diagnosis. This is a very uncommon presentation and tumor and I have limited experinece with this disease. An MRI is needed to help stage this disease as well. I would clearly have referred her to a medical center like [facility] or [place] for ENT consultation. Thank you. Butch WHITMAN, I+O VSButch, I+O Laboratory Tests 10/19/18 11:24 Red Blood Count 5.10, Mean Corpuscular Volume 81.4, Mean Corpuscular Hemoglobin 25.1 L, Mean Corpuscular Hemoglobin Concent 30.8 L, Red Cell Distribution Width 17.2 H, Neutrophils (%) (Auto) 81.3 H, Lymphocytes (%) (Auto) 10.5 L, Monocytes (%) (Auto) 7.1 H, Eosinophils (%) (Auto) 0.3, Basophils (%) (Auto) 0.6, Neutrophils # (Auto) 7.3, Lymphocytes # (Auto) 0.9 L, Monocytes # (Auto) 0.6, Eosinophils # (Auto) 0.0, Basophils # (Auto) 0.1 10/20/18 03:58 Red Blood Count 3.73 L, Mean Corpuscular Volume 86.1, Mean Corpuscular Hemoglobi n 25.7 L, Mean Corpuscular Hemoglobin Concent 29.9 L, Red Cell Distribution Width 17.2 H, Calcium Level 7.5 L, Aspartate Amino Transf (AST/SGOT) 14, Alanine Aminotransferase (ALT/SGPT) 12, Alkaline Phosphatase 72, Total Bilirubin 0.3 #, Total Protein 5.5 #L, Albumin 2.6 #L Vital Signs Date Time Temp Pulse Resp B/P (MAP) Pulse Ox O2 Delivery O2 Flow Rate FiO2 10/20/18 06:31 20 10/20/18 06:00 97.2 80 121/60 (80) 96 10/19/18 16:32 Room Air I&O- Last 24 Hours up to 6 AM 10/20/18 06:00 Intake Total 1243.2 ml Output Total 300 ml Balance 943.2 ml MANUEL MIRAMONTES MD Oct 20, 2018 08:57
[2018-10-20] MEDS: DOCUSATE SODIUM 100 MG CAP PO SCH ×2 (09:50→20:34)
[2018-10-20] MEDS: PREPARATION H SUPP (HEMORRHOID) PR SCH ×2 (09:50→20:34)
[2018-10-20] MEDS: NS 1,000 ML IV SCH ×2 (09:51→20:34)
[2018-10-20] MEDS ORDERED: PROHANCE 279.3MG/ML 15ML VIAL (A9576) As Ordered ONE (09:53)
[2018-10-20 10:00] VITALS: BP 135/63
--- NOTE | 2018-10-20 11:17 | REP ---
MAXILLOFACIAL MR WITHOUT AND WITH CONTRAST: HISTORY: Sinus mass. CONTRAST: ProHance 11 mL. COMPARISON: CT 09/29/2018 A mass hypointense on T1 and slightly hyperintense on T2-weighted images is present in the right maxillary sinus and right nasal passage. There is extension into the right ethmoid sinus , right sphenoid sinus and left nasal passage . The mass measures 3.3 cm in transverse x 3.5 cm in AP x 2.9 cm in cephalocaudal dimensions. There is erosion of the uncinate process and partial erosion of the right middle and inferior nasal turbinates, nasal septum, ethmoid sinus and anterior wall of the right sphenoid sinus and cribriform plate. This is better seen in the the previous maxillofacial CT. There is no intracranial extension. There is no extension into the orbits. There is complete opacification of the right maxillary, ethmoid and frontal sinuses. There is complete opacification of the sphenoid sinus. Moderate mucosal thickening is present in the left ethmoid. The left maxillary sinus is clear. IMPRESSION: There is an enhancing mass in the right maxillary sinus and right nasal passage with extension into the right ethmoid and sphenoid sinuses and left nasal passage. This may represent a squamous cell or adenocarcinoma , inverting papilloma or possibly lymphoma. Electronically Signed by Uli Bran MD 10/20/2018 11:24 A
--- NOTE | 2018-10-20 11:18 | REP ---
REASON FOR EXAM: History of small bowel obstruction. Prior CT scan of 10/19/2018 showed evidence of a distal small bowel obstruction. Today's plain film examination shows multiple gas filled mildly dilated small bowel loops in the abdomen and pelvis without a stepladder appearance or free intraperitoneal air. Surgical clips and yoana are seen in the abdomen and pelvis. Chronic changes are seen involving the spine. The accompanying frontal view of the chest shows cardiomegaly and a hiatal hernia with interstitial fibrotic change all essentially stable from a portable examination obtained 10/19/2018 at 1:22:10 p.m. IMPRESSION: Partial SBO versus ileus. Electronically Signed by Pablo Cooper DO 10/20/2018 12:33 P
[2018-10-20] MEDS: HEPARIN DRIP 25,000 UNITS in APPROPRIATE DILUENT 1 EA IV SCH (11:50)
[2018-10-20] MEDS ORDERED: PILL CUTTER 1 EACH XX PRN (13:30)
[2018-10-20 14:00] VITALS: BP 143/86
[2018-10-20] MEDS: FLUTICASONE PROP 0.05% NASAL SPRAY 16 GM (FLONASE) NARES SCH ×2 (14:44→20:34)
[2018-10-20] MEDS: SIMETHICONE 80 MG CHEW TAB PO SCH ×3 (14:44→20:34)
--- NOTE | 2018-10-20 18:15 | IPNPDOC ---
Subjective Date Seen The patient was seen on 10/20/18. Subjective Chief Complaint/HPI The patient has abdominal pain diffusely. The patient's daughter states that she had a large, well-formed stool a few days ago, and since then, she has not moved her BM. Patient mentions that she is passing gas. She denies palpitation or shortness of breath. She denies nausea or vomiting at this point. Constitutional: Denies: Chills, Fever, Malaise, Night Sweats, Weakness, Fatigue, Weight Loss, Lethargy, Other Eyes: Denies: Pain, Vision change, Conjunctivae inflammation, Eyelid inflammation, Redness, Other ENT: Reports: Sinus Congestion Skin: Denies: Rash, Lesions, Jaundice, Bruising, Itching, Dry, Breakdown, Nail Changes, Other Pulmonary: Denies: Dyspnea, Cough, Pleuritic Chest Pain, Other Symptoms Cardiovascular: Denies: Chest Pain, Palpitations, Orthopnea, Paroxysmal Noc. Dyspnea, Edema, Lt Headedness, Other Symptoms Gastrointestinal: Denies: Nausea, Vomiting, Abdominal Pain, Diarrhea, Constipation, Melena, Hematochezia, Other Symptoms Genitourinary: Denies: Dysuria, Frequency, Incontinence, Hematuria, Retention, Other Symptoms Hematologic: Denies: Bruising, Bleeding Excessively, Petecchia, Purpura, Enlarged Lymph Nodes, Other Hematologic Endocrine: Denies: Polydipsia, Polyphagia, Polyuria, Heat Intolerance, Cold Intolerance, Other Endocrine Sx Musculoskeletal: Denies: Neck Pain, Back Pain, Shoulder Pain, Arm Pain, Hand Pain, Leg Pain, Foot Pain, Joint Pain, Muscle Pain, Spasms, Other Symptoms Neurological: Denies: Weakness, Numbness, Incoordination, Change in speech, Confusion, Seizures, Other Symptoms Psych: Denies: Mood Normal, Anxiety, Depression, Memory Issues, Thoughts of Self Harm, Anger, Thoughts of Harming Other, Other Psych Objective Physical Examination General Exam: Positive: Alert, Cooperative, No Acute Distress Eye Exam: Positive: PERRLA, Conjunctiva & lids normal ENT Exam: Positive: Other ENT (hard of hearing); Negative: Atraumatic (healing nasal scar), Nares Patent (congested) Neck Exam: Positive: Supple; Negative: JVD, thyromegaly Chest Exam: Positive: Clear to auscultation, Normal air movement; Negative: Rales, Rhonchi Heart Exam: Positive: Tachycardic, Irregular Rhythm Telemetry: Positive: Atrial fibrillation Abdomen Exam: Positive: BS Hypoactive, Soft, Tenderness Extremity Exam: Negative: Clubbing, Cyanosis, Edema Skin Exam: Positive: Nl turgor and temperature; Negative: Rash, Breakdown Neuro Exam: Positive: Normal Speech Psych Exam: Positive: Mental status NL, Oriented x 3 Assessment /Plan Problems (1) Small bowel obstruction Status: Acute Problem Text: - It was again confirmed by abdominal DX today. - Cannot put the NGT at this point because the mass in the R is pushing and deviating the septum. - The tumor was noticed to be vascular, and therefore, cannot put the NGT through the R nostril. - Discussed with ENT, and ENT specialist will help to put the NGT tomorrow morning, to the L nostril. - Continue IV hydration, nausea control with a hope of spontaneous relief of SBO for now. (2) New onset atrial fibrillation Status: Acute Problem Text: - The flow cannot have IV metoprolol. The patient can swallow pills, and will continue metoprolol PO for now. - Closely monitor BP and HR. - Follow echocardiogram. - Given possible procedures, will continue heparin gtt. (3) Mass of nasal sinus Problem Text: - She had an MRI today, showing a 3.5 cm mass in the R sinus, suspecting malignancy. Follow up with the biopsy report, differential diagnoses include squamous cell carcinoma or lymphoma. Treatment will be very different, depending on pathology. (4) DDD (degenerative disc disease) Problem Text: -presenting with significant weakness S/P fall -consult PT/OT for evaluation, recommendations (5) DVT prophylaxis Problem Text: -Heparin # Anemia? - Today's Hb decreased. Will repeat CBC now and make sure if the patient is not bleeding. (6) Advance care planning Problem Text: - code status is full code - anticipate discharge home post resolution of SBO # Mild protein calorie malnutrition - Encourage PO intake. Plan/VTE VTE Prophylaxis Ordered?: Yes VS, I&O, 24H, Fishbone Vital Signs/I&O Vital Signs Date Time Temp Pulse Resp B/P (MAP) Pulse Ox O2 Delivery O2 Flow Rate FiO2 10/20/18 17:14 80 143/86 10/20/18 14:00 97.1 20 97 10/19/18 16:32 Room Air I&O- Last 24 Hours up to 6 AM 10/20/18 06:00 Intake Total 1243.2 ml Output Total 300 ml Balance 943.2 ml Laboratory Data 24H LABS Laboratory Tests 2 10/19/18 20:02: Activated Partial Thromboplast Time 111.1H 10/20/18 03:58: Activated Partial Thromboplast Time 158.9*H, Nucleated Red Blood Cells % (auto) 0.0, Anion Gap 8, Glomerular Filtration Rate > 60.0, Blood Urea Nitrogen 21H, Creatinine 0.72, Sodium Level 144, Potassium Level 3.4L, Chloride Level 114H, Carbon Dioxide Level 22, Calcium Level 7.5L, Aspartate Amino Transf (AST/SGOT) 14, Alanine Aminotransferase (ALT/SGPT) 12, Alkaline Phosphatase 72, Total Bilirubin 0.3#, Total Protein 5.5#L, Albumin 2.6#L, Albumin/Globulin Ratio 0.90L 10/20/18 11:12: Activated Partial Thromboplast Time 33.8 10/20/18 17:50: CBC/BMP Laboratory Tests 10/20/18 03:58 Red Blood Count 3.73 L, Mean Corpuscular Volume 86.1, Mean Corpuscular Hemoglobin 25.7 L, Mean Corpuscular Hemoglobin Concent 29.9 L, Red Cell Distribution Width 17.2 H, Calcium Level 7.5 L, Aspartate Amino Transf (AST/SGOT) 14, Alanine Aminotransferase (ALT/SGPT) 12, Alkaline Phosphatase 72, Total Bilirubin 0.3 #, Total Protein 5.5 #L, Albumin 2.6 #L Microbiology Microbiology 10/19/18 Blood Culture - Preliminary, Resulted No growth after 24 hours . All specim... 10/19/18 Blood Culture - Preliminary, Resulted No growth after 24 hours . All specim... 10/19/18 Urine Culture, Received Pending MARIA ANTONIA RUBALCAVA MD Oct 20, 2018 18:15
[2018-10-20 18:33] LABS: INR 1.2; PROTHROMBIN TIME 15.4 SECONDS (12.1-14.4)
[2018-10-20 19:00] VITALS: BP 146/70
[2018-10-20 19:00] LABS: HEMATOCRIT 36.4 % (36.0-47.0); HEMOGLOBIN 11.1 g/dl (12.0-15.5); MEAN CORPUSCULAR HEMOGLOBIN 26.3 pg (27.0-33.0); MEAN CORPUSCULAR HGB CONC 30.5 g/dl (32.0-36.5); MEAN CORPUSCULAR VOLUME 86.3 fl (80.0-96.0); PLATELET COUNT, AUTOMATED 270 10^3/uL (150-450); RED BLOOD COUNT 4.22 10^6/uL (4.00-5.40); WHITE BLOOD COUNT 8.3 10^3/uL (4.0-10.0)
--- NOTE | 2018-10-20 21:14 | IPN ---
DATE: 10/20/2018 Since I saw her last night, she has had some decreased abdominal distention, having some flatus this morning. I did get some follow-up x-rays this morning and did show some abdominal distension/gas throughout her bowel, small-bowel, large bowel. It looked as thought much more of an ileus or at least a partial obstruction. From the standpoint of her abdominal pain she still has crampy abdominal pain, abdominal bloating but it is better than it was last night. She has not had any fevers or chills. Her white count has been stable/normal, however, she did have a slight decreased hematocrit, although it has bumped back up this afternoon. She still has not received an NG tube given her mass in her maxillary sinus and her current anticoagulation. Thus, at this point she seems to have made some slow progressive improvement. My impression is that we should continue with current treatment and potentially at this point we may see how she is over the next 12-24 hours. If she has not had a significant improvement over the next 12 hours it may be reasonable to place an NG tube under ENT guidance. However, if she has had any significant improvement we may consider an upper GI with small-bowel follow-through to rule out any persistence of obstruction. The patient and daughter understands our current plan and we will see how she is doing the morning.
[2018-10-20 22:00] VITALS: BP 117/79
--- NOTE | 2018-10-20 22:00 | ECHO ---
DATE OF PROCEDURE: 10/20/2018 Date of : 1930 Age: 88 Height: 63 inches Weight: 130 pounds Body surface area: 1.61 meters squared Inpatient: [address] [place] [address], room 4229 REFERRING PHYSICIAN: Ash Guillermo Family Nurse Practitioner INDICATION: Dysrhythmia. MEASUREMENTS: 2D Measurements: RV: 4.2 cm LV: 4.5 cm Septum: 0.9 cm Posterior wall: 0.9 cm Aortic root: 2.8 cm LA: 4.2 cm LVEF: 60-65% Doppler Measurements: AV: 1.16 meters per second LVOT: 1.08 meters per second LVOT diameter: 2.0 cm MV-E: 126 Early mitral deceleration time: 130 milliseconds E prime: 7.9 E/E prime ratio: 16.6 Pulmonary capillary wedge pressure: 19.5 mmHg PV: 1.0 meters per second Pulmonary artery acceleration time: 90 milliseconds RVSP: 49-54 mmHg IVC: 1.8 cm COMMENTS: Underlying atrial fibrillation with controlled ventricular response. Normal left ventricular size and wall thickness with normal wall motion. Mildly dilated left atrium with currently estimated mean left atrial pressure moderately increased. Mildly dilated right heart chambers with normal wall motion and Doppler evidence of least moderate pulmonary hypertension. Normal inferior vena cava (IVC) size with reduced respiratory collapse suggestive of an elevated central venous pressure. Mild aortic valvular sclerosis without stenosis but moderate insufficiency. Normal aortic root size. Mitral annular calcification without inflow tract obstruction and only mild insufficiency. Normal appearing tricuspid valve with moderately severe insufficiency. No apparent intracardiac mass or pericardial effusion.
[2018-10-21] MEDS: METOPROLOL TART 25 MG TABLET PO SCH ×4 (00:07→18:22)
[2018-10-21] MEDS: ONDANSETRON 4MG/2ML VIAL (J2405) IV PRN ×3 (00:54→12:33)
[2018-10-21] MEDS: MORPHINE 4 MG/ML 1ML VIAL/SYRINGE (J2270) IV PRN ×3 (01:09→20:12)
[2018-10-21 01:24] LABS: INR 1.08; PROTHROMBIN TIME 14.1 SECONDS (12.1-14.4)
[2018-10-21 01:25] LABS: PARTIAL THROMBOPLASTIN TIME 41.1 SECONDS (25.4-37.6)
[2018-10-21 02:00] VITALS: BP 134/82
[2018-10-21 06:00] VITALS: BP 136/81
[2018-10-21 06:28] LABS: HEMATOCRIT 36.7 % (36.0-47.0); HEMOGLOBIN 11.2 g/dl (12.0-15.5); MEAN CORPUSCULAR HEMOGLOBIN 26.2 pg (27.0-33.0); MEAN CORPUSCULAR HGB CONC 30.5 g/dl (32.0-36.5); MEAN CORPUSCULAR VOLUME 85.9 fl (80.0-96.0); PLATELET COUNT, AUTOMATED 231 10^3/uL (150-450); RED BLOOD COUNT 4.27 10^6/uL (4.00-5.40); WHITE BLOOD COUNT 6.5 10^3/uL (4.0-10.0)
[2018-10-21] MEDS: NS 1,000 ML IV SCH ×2 (06:30→16:53)
[2018-10-21 06:59] LABS: ALT/SGPT 17 U/L (12-78); BILIRUBIN,TOTAL 0.6 MG/DL (0.2-1.0); BLOOD UREA NITROGEN 12 MG/DL (7-18); CALCIUM LEVEL 8.4 MG/DL (8.8-10.2); CARBON DIOXIDE LEVEL 18 MEQ/L (21-32); CHLORIDE LEVEL 109 MEQ/L (98-107); CREATININE FOR GFR 0.52 MG/DL (0.55-1.30); GLOMERULAR FILTRATION RATE > 60.0 (>32); GLUCOSE, FASTING 65 MG/DL (70-100); POTASSIUM SERUM 2.9 MEQ/L (3.5-5.1); SODIUM LEVEL 141 MEQ/L (136-145); TOTAL PROTEIN 6.2 GM/DL (6.4-8.2)
[2018-10-21] MEDS ORDERED: POTASSIUM CHLORIDE INJ 20 MEQ in D5W/LR 1,000 ML IV SCH ×2 (08:45→13:00)
[2018-10-21] MEDS: SIMETHICONE 80 MG CHEW TAB PO SCH ×4 (09:00→20:58)
[2018-10-21] MEDS: DOCUSATE SODIUM 100 MG CAP PO SCH ×2 (09:00→20:59)
[2018-10-21] MEDS: FLUTICASONE PROP 0.05% NASAL SPRAY 16 GM (FLONASE) NARES SCH ×2 (09:00→20:59)
--- NOTE | 2018-10-21 09:14 | IPNPDOC ---
Text Note Date of Service The patient was seen on 10/21/18. NOTE Status of small bowel obstruction noted. Will make an attempt to place NG tube through left nostril under direct visualization in clinic where I have scopes and ability for good nasal anesthesia if needed. 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 The cribiform plate is also involove but as of yet there is no intracranial extension. Awaiting path report. Options would be Radiotherapy, Chemotherapy, Craniofacial resection would be controvesial and of course not done here. VS,Fishbone, I+O VS, Fishbone, I+O Laboratory Tests 10/20/18 18:26 Red Blood Count 4.22, Mean Corpuscular Volume 86.3, Mean Corpuscular Hemoglobin 26.3 L, Mean Corpuscular Hemoglobin Concent 30.5 L, Red Cell Distribution Width 17.0 H 10/21/18 06:14 Red Blood Count 4.27, Mean Corpuscular Volume 85.9, Mean Corpuscular Hemoglobin 26.2 L, Mean Corpuscular Hemoglobin Concent 30.5 L, Red Cell Distribution Width 16.8 H, Calcium Level 8.4 L, Aspartate Amino Transf (AST/SGOT) 17, Alanine Aminotransferase (ALT/SGPT) 17, Alkaline Phosphatase 84, Total Bilirubin 0.6 #, Total Protein 6.2 L, Albumin 3.0 L Vital Signs Date Time Temp Pulse Resp B/P (MAP) Pulse Ox O2 Delivery O2 Flow Rate FiO2 10/21/18 06:30 92 136/81 10/21/18 06:00 97.4 19 98 10/19/18 16:32 Room Air I&O- Last 24 Hours up to 6 AM 10/21/18 05:59 Intake Total 3122 ml Output Total 200 ml Balance 2922 ml MANUEL MIRAMONTES MD Oct 21, 2018 09:14
[2018-10-21 10:00] VITALS: BP 134/76
[2018-10-21] MEDS: KCL 10MEQ/100ML SWI (KRUN) 10 MEQ in APPROPRIATE DILUENT 1 EA IV SCH ×2 (10:57→11:00)
--- NOTE | 2018-10-21 11:00 | REP ---
REASON: History of small bowel obstruction. Comparison exam is 10/20/2018. Since the last examination, a nasogastric tube has been placed. The NG tube is looping upon itself doubling back with the tip pointing superiorly within the distal esophagus. It may, in fact, be in the gastroesophageal junction region within a hiatal hernia which the patient is known to have. The tip is not beneath the diaphragmatic surface of the left lung. The frontal view of the chest is otherwise unchanged. There is cardiomegaly status quo. There are multiple gas and fluid-filled bowel loops in the abdomen some of which have a stepladder appearance. The bowel loops have changed in appearance compared to the prior exam. The rectum and rectosigmoid regions are obscured by a monitoring device on the upright view, which show the air-fluid levels, however, on the supine view, there is a small amount of gas within the rectosigmoid region. IMPRESSION: 1. Nasogastric tube as described above and for which repositioning should be considered if clinically relevant. 2. Suspect partial small bowel obstruction since there is indication of gas in the rectosigmoid region. 3. Other findings as described above. Electronically Signed by Pablo Cooper DO 10/21/2018 01:51 P
[2018-10-21] MEDS: PREPARATION H SUPP (HEMORRHOID) PR SCH ×2 (12:34→20:59)
[2018-10-21 14:00] VITALS: BP 140/65
--- NOTE | 2018-10-21 14:36 | REP ---
REASON FOR EXAM: Assess nasogastric tube placement on this single KUB. COMPARISON: Earlier today. Today's single KUB obtained at 1:41:15 p.m. shows no evidence of a nasogastric tube. The intestinal gas pattern is nonspecific. A few gas filled small bowel loops are again noted essentially unchanged. There is gas in the rectosigmoid region. Chronic changes seen involving the spine status quo. IMPRESSION: No evidence of a nasogastric tube. Electronically Signed by Pablo Cooper DO 10/21/2018 04:57 P
[2018-10-21 18:00] VITALS: BP 140/62
[2018-10-21] MEDS ORDERED: GASTROGRAFIN SOLUTION 30ML (Q9963) As Ordered ONE (18:53)
[2018-10-21] MEDS ORDERED: ISOVUE-370 76% 100ML VIAL (Q9967) As Ordered ONE (20:15)
--- NOTE | 2018-10-21 21:37 | REPVR ---
EXAM: CT Abdomen and Pelvis With Contrast EXAM DATE/TIME: 10/21/2018 8:23 PM CLINICAL HISTORY: 88 years old, female; Condition or disease; Other: Sbo; Prior surgery TECHNIQUE: Imaging protocol: Axial computed tomography images of the abdomen and pelvis with intravenous contrast. Coronal and sagittal reformatted images were created and reviewed. Radiation optimization: All CT scans at this facility use at least one of these dose optimization techniques: automated exposure control; mA and/or kV adjustment per patient size (includes targeted exams where dose is matched to clinical indication); or iterative reconstruction. Contrast material: ISOVUE 370; Contrast volume: 100 ml; Contrast route: IV; COMPARISON: CT ABD/PEL W/IV CONTRAST ONLY 10/19/2018 11:39 AM FINDINGS: Heart: There is a moderate cardiomegaly. Mediastinum: There is a large sliding and paraesophageal hiatal hernia. Lungs: There is a small left pleural effusion ABDOMEN: Liver: The intrahepatic ducts within the left lobe of the liver aren't dilated. Gallbladder and bile ducts: The gallbladder is absent. Common bile duct measures 1.6 cm in diameter and is dilated down to the level of the ampulla. Pancreas: There is atrophy of the pancreas. The pancreatic duct is dilated at 4.6 mm as measured in pancreatic body. Spleen: 2 rounded enhancing lesions are noted within the spleen measuring 1.2 cm and 1.3 cm respectively in maximal diameter. Adrenals: There is a left adrenal mass measuring 1.4 cm in diameter with a density measurement of 105H. Kidneys and ureters: There is moderate right-sided hydronephrosis. The dilated pelvis tapers abruptly at the ureteropelvic junction suggesting UPJ stenosis Stomach and bowel: Dilated air and fluid-filled small bowel loops noted in the mid abdomen and pelvis. Surgical clips noted involving a small bowel loop in the midabdomen. Postoperative changes related to previous partial colectomy Appendix: The appendix is not seen as a separate structure. PELVIS: Bladder: Unremarkable as visualized. Reproductive: Unremarkable as visualized. ABDOMEN and PELVIS: Intraperitoneal space: Normal. No free air. No significant fluid collection. Bones/joints: Underlying rotatory levoscoliosis of the thoracolumbar spine. Soft tissues: Mild anasarca. Surgical clips noted at the rectosigmoid junction. Mild anasarca. Vasculature: Normal. No abdominal aortic aneurysm. Lymph nodes: Normal. No enlarged lymph nodes. IMPRESSION: 1. Persistent distal small bowel obstruction without significant interval change. 2. 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 3. 2 hypervascular lesions noted within the spleen unchanged from previous. Differential diagnosis favors benign etiology in view of the lack of change. The differential diagnostic considerations include hamartoma, hemangioma and Castleman's disease 4. Chronic intra-and extrahepatic ductal dilatation. The distal common bile duct appears to taper normally suggesting distal stricture. No pancreatic neoplasm seen. There is evidence of pancreatic atrophy and pancreatic ductal dilatation. 5. Left adrenal mass without change from previous. It does not meet the CT criteria for a benign lesion. MR or noncontrast CT might be helpful in more definitive characterization. Stability favors a benign etiology. 6. Large sliding and paraesophageal hiatal hernia. Electronically signed by: Mae Lindquist On 10/21/2018 21:37:14 PM
[2018-10-21 22:00] VITALS: BP 178/78
--- NOTE | 2018-10-21 22:14 | IPNPDOC ---
Subjective Date Seen The patient was seen on 10/21/18. Subjective Chief Complaint/HPI The patient still has persistent abdominal pain. She had an episode of vomiting this morning. The patient is not sure if she has passed gas. She has not had a BM. Denies a fever, chills. General: Reports: Fatigue Constitutional: Reports: Weakness Eyes: Denies: Pain, Vision change, Conjunctivae inflammation, Eyelid inflammation, Redness, Other ENT: Denies: Head Aches, Ear Pain, Dysphagia, Sinus Congestion, Post Nasal Drip, Sore Throat, Epistaxis, Other Symptoms Skin: Denies: Rash, Lesions, Jaundice, Bruising, Itching, Dry, Breakdown, Nail Changes, Other Pulmonary: Denies: Dyspnea, Cough, Pleuritic Chest Pain, Other Symptoms Cardiovascular: Denies: Chest Pain, Palpitations, Orthopnea, Paroxysmal Noc. Dyspnea, Edema, Lt Headedness, Other Symptoms Gastrointestinal: Reports: Nausea, Vomiting, Abdominal Pain Genitourinary: Denies: Dysuria, Frequency, Incontinence, Hematuria, Retention, Other Symptoms Hematologic: Denies: Bruising, Bleeding Excessively, Petecchia, Purpura, Enlarged Lymph Nodes, Other Hematologic Endocrine: Denies: Polydipsia, Polyphagia, Polyuria, Heat Intolerance, Cold Intolerance, Other Endocrine Sx Musculoskeletal: Denies: Neck Pain, Back Pain, Shoulder Pain, Arm Pain, Hand Pain, Leg Pain, Foot Pain, Joint Pain, Muscle Pain, Spasms, Other Symptoms Neurological: Denies: Weakness, Numbness, Incoordination, Change in speech, Con fusion, Seizures, Other Symptoms Objective Physical Examination General Exam: Positive: Alert, Cooperative, No Acute Distress Eye Exam: Positive: PERRLA, Conjunctiva & lids normal ENT Exam: Positive: Other ENT (hard of hearing); Negative: Atraumatic (healing nasal scar), Nares Patent (congested) Neck Exam: Positive: Supple; Negative: JVD, thyromegaly Chest Exam: Positive: Clear to auscultation, Normal air movement; Negative: Rales, Rhonchi Heart Exam: Positive: Tachycardic, Irregular Rhythm Telemetry: Positive: Atrial fibrillation Abdomen Exam: Positive: BS Hypoactive, Tenderness, Other (no rigidity, guarding, or rebound tenderness) Extremity Exam: Negative: Clubbing, Cyanosis, Edema Skin Exam: Positive: Nl turgor and temperature; Negative: Rash, Breakdown Neuro Exam: Positive: Normal Speech Psych Exam: Positive: Mental status NL, Oriented x 3 Assessment /Plan Problems (1) Small bowel obstruction Status: Acute Problem Text: - The patient has a tumor in the R side nostril and sinus, and it was noticed to be vascular, and therefore, cannot put the NGT through the R nostril. - Heparin gtt was temporarily held off at midnight, she was taken to the ENT clinic for NGT placement. However, post-placement DX shows a loop tip pointing towards up, and the tip of the NGT was in the hiatal hernia, not placed in the abdomen. While re-adjustment was tried, but repeat DX does not show the tip. Later, the NGT was found in the mouth, and the patient wanted to pull out since it was painful. It was removed. - After it was removed, abdominal DX study to r/o progressive obstruction, DX study was ordered, but radiology recommends CT abd/pelvis to better visualize the obstruction. Repeat CT shows distal small bowel obstruction with no change. She also has benign looking lesions in the adrenal gland and spleen, which have been stable. CT shows a large hiatal hernia, and this seems to be the cause of difficulty of the NGT placement. - Will again hold heparin gtt tonight, and contact ENT tomorrow morning. - Pain control and IV hydration. - Surgery recommendation is appreciated. (2) New onset atrial fibrillation Status: Acute Problem Text: - The flow cannot have IV metoprolol. The patient can swallow pills, and will continue metoprolol PO for now. - Closely monitor BP and HR. - Echo shows moderate TV insufficience, and LVEF is wnl. (3) Mass of nasal sinus Problem Text: - She had an MRI today, showing a 3.5 cm mass in the R sinus, suspecting malignancy. Follow up with the biopsy report, differential diagnoses include squamous cell carcinoma or lymphoma. Treatment will be very different, depending on pathology. (4) DDD (degenerative disc disease) Problem Text: -presenting with significant weakness S/P fall -consult PT/OT for evaluation, recommendations (5) DVT prophylaxis Problem Text: -Heparin # Anemia? - Closely follow H/H. (6) Advance care planning Problem Text: - code status is full code - anticipate discharge home post resolution of SBO # Mild protein calorie malnutrition - Encourage PO intake. # Hypokalemia - We tried IV KCl supplement, but the patient couldn't tolerate and refused it given burning sensation. - Will provide KCl-added NS. Plan/VTE VTE Prophylaxis Ordered?: Yes VS, I&O, 24H, Fishbone Vital Signs/I&O Vital Signs Date Time Temp Pulse Resp B/P (MAP) Pulse Ox O2 Delivery O2 Flow Rate FiO2 10/21/18 20:22 20 10/21/18 18:22 91 140/65 10/21/18 18:00 97.2 98 10/19/18 16:32 Room Air I&O- Last 24 Hours up to 6 AM 10/21/18 06:00 Intake Total 3122 ml Output Total 200 ml Balance 2922 ml Laboratory Data 24H LABS Laboratory Tests 2 10/21/18 01:07: Prothrombin Time 14.1, Prothromb Time International Ratio 1.08, Activated Partial Thromboplast Time 41.1H 10/21/18 06:14: Nucleated Red Blood Cells % (auto) 0.0, Anion Gap 14, Glomerular Filtration Rate > 60.0, Blood Urea Nitrogen 12, Creatinine 0.52L, Sodium Level 141, Potassium Level 2.9*L, Chloride Level 109H, Carbon Dioxide Level 18L, Calcium Level 8.4L, Aspartate Amino Transf (AST/SGOT) 17, Alanine Aminotransferase (ALT/SGPT) 17, Alkaline Phosphatase 84, Total Bilirubin 0.6#, Total Protein 6.2L, Albumin 3.0L, Albumin/Globulin Ratio 0.94L CBC/BMP Laboratory Tests 10/21/18 06:14 Red Blood Count 4.27, Mean Corpuscular Volume 85.9, Mean Corpuscular Hemoglobin 26.2 L, Mean Corpuscular Hemoglobin Concent 30.5 L, Red Cell Distribution Width 16.8 H, Calcium Level 8.4 L, Aspartate Amino Transf (AST/SGOT) 17, Alanine Aminotransferase (ALT/SGPT) 17, Alkaline Phosphatase 84, Total Bilirubin 0.6 #, Total Protein 6.2 L, Albumin 3.0 L Microbiology Microbiology 10/19/18 Blood Culture - Preliminary, Resulted No Growth after 48 hours. All Specime... 10/19/18 Blood Culture - Preliminary, Resulted No Growth after 48 hours. All Specime... 10/19/18 Urine Culture - Final, Complete Escherichia Coli MARIA ANTONIA RUBALCAVA MD Oct 21, 2018 22:14
[2018-10-21] MEDS: KCL 40MEQ IN D5/0.45NS 1000ML 1,000 ML IV SCH (22:31)
[2018-10-22] MEDS: METOPROLOL TART 25 MG TABLET PO SCH ×5 (00:07→23:14)
[2018-10-22] MEDS: MORPHINE 4 MG/ML 1ML VIAL/SYRINGE (J2270) IV PRN ×3 (01:00→23:47)
[2018-10-22] MEDS ORDERED: LISINOPRIL 20 MG TAB PO ONE (01:45)
[2018-10-22 02:00] VITALS: BP 160/78
[2018-10-22 05:50] LABS: HEMATOCRIT 32.6 % (36.0-47.0); HEMOGLOBIN 9.9 g/dl (12.0-15.5); MEAN CORPUSCULAR HEMOGLOBIN 25.4 pg (27.0-33.0); MEAN CORPUSCULAR HGB CONC 30.4 g/dl (32.0-36.5); MEAN CORPUSCULAR VOLUME 83.8 fl (80.0-96.0); PLATELET COUNT, AUTOMATED 237 10^3/uL (150-450); RED BLOOD COUNT 3.89 10^6/uL (4.00-5.40); WHITE BLOOD COUNT 5.7 10^3/uL (4.0-10.0)
[2018-10-22 06:00] VITALS: BP 162/71
[2018-10-22 06:16] LABS: ALBUMIN 2.6 GM/DL (3.2-5.2); ALT/SGPT 14 U/L (12-78); BILIRUBIN,TOTAL 0.5 MG/DL (0.2-1.0); BLOOD UREA NITROGEN 11 MG/DL (7-18); CALCIUM LEVEL 8.3 MG/DL (8.8-10.2); CARBON DIOXIDE LEVEL 16 MEQ/L (21-32); CHLORIDE LEVEL 112 MEQ/L (98-107); CREATININE FOR GFR 0.61 MG/DL (0.55-1.30); GLOMERULAR FILTRATION RATE > 60.0 (>32); GLUCOSE, FASTING 103 MG/DL (70-100); POTASSIUM SERUM 3.6 MEQ/L (3.5-5.1); SODIUM LEVEL 140 MEQ/L (136-145); TOTAL PROTEIN 5.6 GM/DL (6.4-8.2)
[2018-10-22] MEDS: DOCUSATE SODIUM 100 MG CAP PO SCH ×2 (08:00→20:08)
[2018-10-22] MEDS: SIMETHICONE 80 MG CHEW TAB PO SCH ×4 (08:00→20:08)
[2018-10-22] MEDS: KCL 40MEQ IN D5/0.45NS 1000ML 1,000 ML IV SCH ×2 (08:00→18:17)
[2018-10-22] MEDS: PREPARATION H SUPP (HEMORRHOID) PR SCH ×2 (08:01→20:08)
[2018-10-22] MEDS: FLUTICASONE PROP 0.05% NASAL SPRAY 16 GM (FLONASE) NARES SCH ×2 (08:01→20:12)
--- NOTE | 2018-10-22 08:55 | IPNPDOC ---
Text Note Date of Service The patient was seen on 10/22/18. NOTE The results of the special stains of the biopsy of the nasal mass were received from [facility]. This is a Malignant Melanoma. They cannot tell whether it is primary or metas tatic. Extremely rare diagnosis, well outside the boundaries of my expertise. Oncology consult may be warrented and an opinion from an academic center might be in order if possible. Obviously age and associated medical problems are limiting factors. Thank you for allowing me to participate in her care. VS,Butch, I+O VS, Butch, I+O Laboratory Tests 10/22/18 05:30 Red Blood Count 3.89 L, Mean Corpuscular Volume 83.8, Mean Corpuscular Hemoglob in 25.4 L, Mean Corpuscular Hemoglobin Concent 30.4 L, Red Cell Distribution Width 17.2 H, Calcium Level 8.3 L, Aspartate Amino Transf (AST/SGOT) 22, Alanine Aminotransferase (ALT/SGPT) 14, Alkaline Phosphatase 70, Total Bilirubin 0.5, Total Protein 5.6 L, Albumin 2.6 L Vital Signs Date Time Temp Pulse Resp B/P (MAP) Pulse Ox O2 Delivery O2 Flow Rate FiO2 10/22/18 06:39 71 162/71 10/22/18 06:00 97.9 71 97 10/19/18 16:32 Room Air I&O- Last 24 Hours up to 6 AM 10/22/18 06:00 Intake Total 1710 ml Output Total 950 ml Balance 760 ml MANUEL MIRAMONTES MD Oct 22, 2018 08:55
[2018-10-22] MEDS: LISINOPRIL 20 MG TAB PO SCH (10:18)
[2018-10-22] MEDS: amLODIPine 10 MG TAB PO SCH (10:18)
--- NOTE | 2018-10-22 10:31 | REP ---
ABDOMEN, FLAT UPRIGHT PA CHEST: HISTORY: Small bowel obstruction. Contrast material is present in the intestine and urinary bladder from a recent CT examination. Air is present in the small and large intestine. Several air fluid levels and dilated loops of intestine are present. This is decreased to the previous study. There is no pneumoperitoneum. The patient is status-post removal of an NG tube. The lungs are clear. IMPRESSION: The above findings are consistent with small bowel obstruction that are decreased compared to the previous study. Electronically Signed by Uli Bran MD 10/22/2018 10:32 A
--- NOTE | 2018-10-22 13:56 | IPN ---
DATE: 10/21/2018 The patient overall states that she is still having abdominal pain, although when I examine her, she does not look like she is in that much discomfort and the other issues with nausea and vomiting that she has had, it sounds as though may be a bit of coffee-ground that she is having, not so much feculent. She has had some minimal flatus and overall has still some crampy abdominal pain. She has been afebrile and her white count has been normal. On her physical exam abdomen is still distended in the lower abdomen, core machine tender across the lower abdomen, and this has been a persistent finding with mild guarding, without significant rebound, but exam has been relatively stable over the last 48 hours. The nurses have stated that Dr. Rudolph will be placing an NG tube today. I feel that if this is too difficult it is reasonable to not have the NG tube given the patient's a very mild improvement clinically. I do feel that the nausea and vomiting issue is associated with some blood, probably from the malignancy in her nose and swallowing this, more so than truly the typical obstructive looking picture. When I look at her x-rays it does not appear that she has gastric distension so much, and seems less likely the etiology for her nausea and vomiting. At this point will await the NG tube placement and see if that expedited her improvement. Otherwise, I feel that her options are relatively limited at this point. Given the distention I anticipate this may still have to be an open operative intervention instead of a laparoscopic type of operation, but we can discuss this further if we proceed with the next step of bringing her to the operating room, but once again at this point, given her other issues I feel that it is reasonable to continue with her current treatment.
[2018-10-22 14:00] VITALS: BP 148/74
--- NOTE | 2018-10-22 14:30 | IPN ---
DATE: 10/22/2018 The patient had a small bowel movement last night. She had several bouts of flatus overnight and this morning had another small bowel movement. I ordered x-rays that show some improvement of her bowel obstruction looking picture, much less distention. Clinically, she had some attempts at NG tube placement and given her hiatal hernia this really did not progress very well and thus eventually had the NG tube removed. In any case now, she continuing on with her current treatment. She has been afebrile overnight. She has had no vomiting since yesterday morning. On her physical exam, abdomen is softly distended, but it is actually less distended than it was even yesterday, less tympanitic. All of the upper abdomen is soft and it is nontender. It is really just the lower abdomen and a little less tender than it was before, hand but slubber tender. Overall, I do see a slight progression of improvement on a daily basis here. From yesterday to today, much more of an improvement. IMPRESSION AND PLAN: At this point, since the x-rays have come back and they show improvement I do feel that we can continue this course; however, she may not completely resolve this without operative intervention. 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 Obviously, if there is metastatic lesion, the likelihood of improvement/resolution of the small bowel obstruction is much less likely. However, if it is adhesions, there still is a chance that this might get better without operative intervention. In any case, I have discussed with her daughter that if she needs operative intervention, a probable laparotomy would be necessary and I anticipate if this is a small bowel lesion or adhesion that she would most likely not need an ostomy. More importantly, at that time, I would recommend placement of a gastrostomy tube for decompression of her stomach or if she receives radiation etc. for her melanoma that she may benefit from a gastrostomy tube in the future. In any case, at this point, we will see how she does over the next 12-24 hours and reevaluate in the morning.
[2018-10-22] MEDS: ACETAMINOPHEN TAB 650MG DOSE (2X325MG) PO PRN (14:41)
--- NOTE | 2018-10-22 15:44 | IPNPDOC ---
Subjective Date Seen The patient was seen on 10/22/18. Subjective Chief Complaint/HPI The patient had a small BM last night, and had a large BM this morning. She feels little less pain in the abdomen. Denies a fever, or chills, nausea, vomiting. General: Denies: ROS Unobtainable, Chills, Night Sweats, Fatigue, Malaise, Normal Appetite, Other Symptoms Constitutional: Denies: Chills, Fever, Malaise, Night Sweats, Weakness, Fatigue, Weight Loss, Lethargy, Other Eyes: Denies: Pain, Vision change, Conjunctivae inflammation, Eyelid inflammation, Redness, Other ENT: Denies: Head Aches, Ear Pain, Dysphagia, Sinus Congestion, Post Nasal Drip, Sore Throat, Epistaxis, Other Symptoms Skin: Denies: Rash, Lesions, Jaundice, Bruising, Itching, Dry, Breakdown, Nail Changes, Other Pulmonary: Denies: Dyspnea, Cough, Pleuritic Chest Pain, Other Symptoms Cardiovascular: Denies: Chest Pain, Palpitations, Orthopnea, Paroxysmal Noc. Dyspnea, Edema, Lt Headedness, Other Symptoms Gastrointestinal: Reports: Abdominal Pain Genitourinary: Denies: Dysuria, Frequency, Incontinence, Hematuria, Retention, Other Symptoms Hematologic: Denies: Bruising, Bleeding Excessively, Petecchia, Purpura, Enlarged Lymph Nodes, Other Hematologic Endocrine: Denies: Polydipsia, Polyphagia, Polyuria, Heat Intolerance, Cold Intolerance, Other Endocrine Sx Musculoskeletal: Denies: Neck Pain, Back Pain, Shoulder Pain, Arm Pain, Hand Pain, Leg Pain, Foot Pain, Joint Pain, Muscle Pain, Spasms, Other Symptoms Psych: Denies: Mood Normal, Anxiety, Depression, Memory Issues, Thoughts of Self Harm, Anger, Thoughts of Harming Other, Other Psych Objective Physical Examination General Exam: Positive: Alert, Cooperative, No Acute Distress Eye Exam: Positive: PERRLA, Conjunctiva & lids normal ENT Exam: Positive: Other ENT (hard of hearing); Negative: Atraumatic (healing nasal scar), Nares Patent (congested) Neck Exam: Positive: Supple; Negative: JVD, thyromegaly Chest Exam: Positive: Clear to auscultation, Normal air movement; Negative: Rales, Rhonchi Heart Exam: Positive: Tachycardic, Irregular Rhythm Telemetry: Positive: Atrial fibrillation Abdomen Exam: Positive: BS Hypoactive, Tenderness, Other (no rigidity, guarding, or rebound tenderness) Extremity Exam: Negative: Clubbing, Cyanosis, Edema Skin Exam: Positive: Nl turgor and temperature; Negative: Rash, Breakdown Neuro Exam: Positive: Normal Speech Psych Exam: Positive: Mental status NL, Oriented x 3 Assessment /Plan Problems (1) Small bowel obstruction Status: Acute Problem Text: - Pain is slightly improved, and she had a BM this morning. Abdominal DX shows slight improvement. - Dr. Teran is actively following the patient. If SBO is not improving, the patient will be taken to the OR for possible correction of SBO and PEG tube. - Will restart heparin gtt, and reassess the patient tomorrow morning with repeat abdominal DX study and clinical picture. - Continues to be NPO except for medications. (2) New onset atrial fibrillation Status: Acute Problem Text: - The flow cannot have IV metoprolol. The patient can swallow pills, and will continue metoprolol PO for now. - Closely monitor BP and HR. - Echo shows moderate TV insufficience, and LVEF is wnl. - Continue heparin gtt (3) Mass of nasal sinus Problem Text: - She had an MRI today, showing a 3.5 cm mass in the R sinus, suspecting malignancy. - Pathology shows malignant melanoma. - The patient will follow oncology as an outpatient. (4) DDD (degenerative disc disease) Problem Text: -presenting with significant weakness S/P fall -consult PT/OT for evaluation, recommendations (5) DVT prophylaxis Problem Text: -Heparin # Anemia? - Closely follow H/H. # HTN - Home PO medications were re-initiated. (6) Advance care planning Problem Text: - code status is full code - anticipate discharge home post resolution of SBO # Mild protein calorie malnutrition - Encourage PO intake. # Hypokalemia - We tried IV KCl supplement, but the patient couldn't tolerate and refused it given burning sensation. - Will provide KCl-added NS. Plan/VTE VTE Prophylaxis Ordered?: Yes VS, I&O, 24H, Fishbone Vital Signs/I&O Vital Signs Date Time Temp Pulse Resp B/P (MAP) Pulse Ox O2 Delivery O2 Flow Rate FiO2 10/22/18 12:42 86 135/72 10/22/18 06:00 97.9 71 97 10/19/18 16:32 Room Air I&O- Last 24 Hours up to 6 AM 10/22/18 06:00 Intake Total 1710 ml Output Total 950 ml Balance 760 ml Laboratory Data 24H LABS Laboratory Tests 2 10/22/18 05:30: Nucleated Red Blood Cells % (auto) 0.0, Anion Gap 12, Glomerular Filtration Rate > 60.0, Blood Urea Nitrogen 11, Creatinine 0.61, Sodium Level 140, Potassium Level 3.6#, Chloride Level 112H, Carbon Dioxide Level 16L, Calcium Level 8.3L, Aspartate Amino Transf (AST/SGOT) 22, Alanine Aminotransferase (ALT/SGPT) 14, Alkaline Phosphatase 70, Total Bilirubin 0.5, Total Protein 5.6L, Albumin 2.6L, Albumin/Globulin Ratio 0.87L CBC/BMP Laboratory Tests 10/22/18 05:30 Red Blood Count 3.89 L, Mean Corpuscular Volume 83.8, Mean Corpuscular Hemoglobin 25.4 L, Mean Corpuscular Hemoglobin Concent 30.4 L, Red Cell Distribution Width 17.2 H, Calcium Level 8.3 L, Aspartate Amino Transf (AST/SGOT) 22, Alanine Aminotransferase (ALT/SGPT) 14, Alkaline Phosphatase 70, Total Bilirubin 0.5, Total Protein 5.6 L, Albumin 2.6 L Microbiology Microbiology 10/19/18 Blood Culture - Preliminary, Resulted No Growth after 72 hours. All specime... 10/19/18 Blood Culture - Preliminary, Resulted No Growth after 72 hours. All specime... 10/19/18 Urine Culture - Final, Complete Escherichia Coli MARIA ANTONIA RUBALCAVA MD Oct 22, 2018 15:44
[2018-10-22 18:00] VITALS: BP 144/69
[2018-10-22] MEDS: HEPARIN DRIP 25,000 UNITS in APPROPRIATE DILUENT 1 EA IV SCH (18:15)
[2018-10-22 22:00] VITALS: BP 150/73
[2018-10-22] MEDS: RAMELTEON 8 MG TAB (ROZEREM) PO PRN (23:14)
[2018-10-23 02:00] VITALS: BP 138/74
[2018-10-23] MEDS: ACETAMINOPHEN TAB 650MG DOSE (2X325MG) PO PRN (03:34)
[2018-10-23] MEDS: MORPHINE 4 MG/ML 1ML VIAL/SYRINGE (J2270) IV PRN ×2 (04:16→23:08)
[2018-10-23] MEDS: KCL 40MEQ IN D5/0.45NS 1000ML 1,000 ML IV SCH ×2 (04:16→13:59)
[2018-10-23 06:20] VITALS: BP 157/74
[2018-10-23] MEDS: METOPROLOL TART 25 MG TABLET PO SCH ×3 (06:24→18:26)
[2018-10-23 06:34] LABS: HEMATOCRIT 30.2 % (36.0-47.0); HEMOGLOBIN 9.3 g/dl (12.0-15.5); MEAN CORPUSCULAR HEMOGLOBIN 25.2 pg (27.0-33.0); MEAN CORPUSCULAR HGB CONC 30.8 g/dl (32.0-36.5); MEAN CORPUSCULAR VOLUME 81.8 fl (80.0-96.0); PLATELET COUNT, AUTOMATED 185 10^3/uL (150-450); RED BLOOD COUNT 3.69 10^6/uL (4.00-5.40); WHITE BLOOD COUNT 5.3 10^3/uL (4.0-10.0)
[2018-10-23 07:05] LABS: ALBUMIN 2.7 GM/DL (3.2-5.2); ALT/SGPT 15 U/L (12-78); BILIRUBIN,TOTAL 0.3 MG/DL (0.2-1.0); BLOOD UREA NITROGEN 5 MG/DL (7-18); CALCIUM LEVEL 7.9 MG/DL (8.8-10.2); CARBON DIOXIDE LEVEL 23 MEQ/L (21-32); CHLORIDE LEVEL 110 MEQ/L (98-107); CREATININE FOR GFR 0.51 MG/DL (0.55-1.30); GLOMERULAR FILTRATION RATE > 60.0 (>32); GLUCOSE, FASTING 112 MG/DL (70-100); POTASSIUM SERUM 3.3 MEQ/L (3.5-5.1); SODIUM LEVEL 140 MEQ/L (136-145); TOTAL PROTEIN 5.4 GM/DL (6.4-8.2)
[2018-10-23] MEDS: PREPARATION H SUPP (HEMORRHOID) PR SCH ×2 (09:00→21:00)
[2018-10-23 10:00] VITALS: BP 147/67
[2018-10-23] MEDS: DOCUSATE SODIUM 100 MG CAP PO SCH ×2 (10:07→23:06)
[2018-10-23] MEDS: LISINOPRIL 20 MG TAB PO SCH (10:07)
[2018-10-23] MEDS: SIMETHICONE 80 MG CHEW TAB PO SCH ×4 (10:07→23:06)
[2018-10-23] MEDS: amLODIPine 10 MG TAB PO SCH (10:08)
[2018-10-23] MEDS: FLUTICASONE PROP 0.05% NASAL SPRAY 16 GM (FLONASE) NARES SCH ×2 (10:09→23:06)
[2018-10-23] MEDS ORDERED: LISINOPRIL 20 MG TAB PO ONE (12:15)
--- NOTE | 2018-10-23 12:44 | REP ---
KUB, ONE VIEW: HISTORY: Small bowel obstruction. COMPARISON: 10/22/2018 Air is present in small and large intestine. There are no air-fluid levels or dilated loops of intestine. There is no pneumoperitoneum. Previously noted dilated loops of intestine are not seen. Surgical clips are present in the pelvis. IMPRESSION: The above findings are consistent with small bowel obstruction that is decreased compared to the previous study. Electronically Signed by Uli Bran MD 10/23/2018 12:46 P
[2018-10-23 14:00] VITALS: BP 130/70
[2018-10-23] MEDS: ONDANSETRON 4MG/2ML VIAL (J2405) IV PRN (14:11)
[2018-10-23 18:00] VITALS: BP 156/85
--- NOTE | 2018-10-23 21:02 | IPNPDOC ---
Subjective Date Seen The patient was seen on 10/23/18. Subjective Chief Complaint/HPI The patient's abdominal pain has improved. She had a BM yesterday, but not today. She has slight blood from the nose. General: Reports: Fatigue Constitutional: Reports: Weakness Eyes: Denies: Pain, Vision change, Conjunctivae inflammation, Eyelid inflammation, Redness, Other ENT: Reports: Other Symptoms (small nose blood) Skin: Denies: Rash, Lesions, Jaundice, Bruising, Itching, Dry, Breakdown, Nail Changes, Other Pulmonary: Denies: Dyspnea, Cough, Pleuritic Chest Pain, Other Symptoms Cardiovascular: Denies: Chest Pain, Palpitations, Orthopnea, Paroxysmal Noc. Dyspnea, Edema, Lt Headedness, Other Symptoms Gastrointestinal: Denies: Nausea, Vomiting, Abdominal Pain, Diarrhea, Constipation, Melena, Hematochezia, Other Symptoms Genitourinary: Denies: Dysuria, Frequency, Incontinence, Hematuria, Retention, Other Symptoms Hematologic: Denies: Bruising, Bleeding Excessively, Petecchia, Purpura, Enlarged Lymph Nodes, Other Hematologic Endocrine: Denies: Polydipsia, Polyphagia, Polyuria, Heat Intolerance, Cold Intolerance, Other Endocrine Sx Musculoskeletal: Denies: Neck Pain, Back Pain, Shoulder Pain, Arm Pain, Hand Pain, Leg Pain, Foot Pain, Joint Pain, Muscle Pain, Spasms, Other Symptoms Neurological: Denies: Weakness, Numbness, Incoordination, Change in speech, Confusion, Seizures, Other Symptoms Psych: Denies: Mood Normal, Anxiety, Depression, Memory Issues, Thoughts of Self Harm, Anger, Thoughts of Harming Other, Other Psych Objective Physical Examination General Exam: Positive: Alert, Cooperative, No Acute Distress Eye Exam: Positive: PERRLA, Conjunctiva & lids normal ENT Exam: Positive: Other ENT (hard of hearing); Negative: Atraumatic (healing nasal scar), Nares Patent (congested) Neck Exam: Positive: Supple; Negative: JVD, thyromegaly Chest Exam: Positive: Clear to auscultation, Normal air movement; Negative: Rales, Rhonchi Heart Exam: Positive: Tachycardic, Irregular Rhythm Telemetry: Positive: Atrial fibrillation Abdomen Exam: Positive: BS Hypoactive, Tenderness, Other (no rigidity, guarding, or rebound tenderness) Extremity Exam: Negative: Clubbing, Cyanosis, Edema Skin Exam: Positive: Nl turgor and temperature; Negative: Rash, Breakdown Neuro Exam: Positive: Normal Speech Psych Exam: Positive: Mental status NL, Oriented x 3 Assessment /Plan Problems (1) Small bowel obstruction Status: Acute Problem Text: - Pain is slightly improved. Repeat abdominal DX shows continued improvement. - Per Dr. Teran's recommendation, heparin gtt was continued. Dr. Teran's recommendation would be appreciated. - Will repeat abdominal DX tomorrow morning. - Continues to be NPO except for medications. (2) New onset atrial fibrillation Status: Acute Problem Text: - Continue heparin gtt. 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 - Will have a conversation about considering aspirin instead of full anticoagulation given her age and a risk of bleeding. However, this cannot be discussed until the decision on surgery is made. (3) Mass of nasal sinus Problem Text: - Pathology shows malignant melanoma. - The patient will follow oncology as an outpatient. (4) DDD (degenerative disc disease) Problem Text: -presenting with significant weakness S/P fall -consult PT/OT for evaluation, recommendations (5) DVT prophylaxis Problem Text: -Heparin # Anemia? - Closely follow H/H. # HTN - Increased lisinopril to 40 daily from 20 daily. Metoprolol 50 BID. Continue to closely follow BP meds. (6) Advance care planning Problem Text: - code status is full code - anticipate discharge home post resolution of SBO # Mild protein calorie malnutrition - Encourage PO intake. # Hypokalemia - We tried IV KCl supplement, but the patient couldn't tolerate and refused it given burning sensation. - Will provide KCl-added NS. Plan/VTE VTE Prophylaxis Ordered?: Yes VS, I&O, 24H, Fishbone Vital Signs/I&O Vital Signs Date Time Temp Pulse Resp B/P (MAP) Pulse Ox O2 Delivery O2 Flow Rate FiO2 10/23/18 18:26 89 156/88 10/23/18 18:00 98.1 16 93 10/19/18 16:32 Room Air I&O- Last 24 Hours up to 6 AM 10/23/18 06:00 Intake Total 1354 ml Output Total 1550 ml Balance -196 ml Laboratory Data 24H LABS Laboratory Tests 2 10/23/18 00:22: Activated Partial Thromboplast Time 73.0H 10/23/18 06:21: Activated Partial Thromboplast Time 93.3H, Nucleated Red Blood Cells % (auto) 0.0, Anion Gap 7L, Glomerular Filtration Rate > 60.0, Blood Urea Nitrogen 5#L, Creatinine 0.51L, Sodium Level 140, Potassium Level 3.3L, Chloride Level 110H, Carbon Dioxide Level 23, Calcium Level 7.9L, Aspartate Amino Transf (AST/SGOT) 15, Alanine Aminotransferase (ALT/SGPT) 15, Alkaline Phosphatase 70, Total Bilirubin 0.3, Total Protein 5.4L, Albumin 2.7L, Albumin/Globulin Ratio 1.00 10/23/18 12:12: Activated Partial Thromboplast Time 89.8H CBC/BMP Laboratory Tests 10/23/18 06:21 Red Blood Count 3.69 L, Mean Corpuscular Volume 81.8, Mean Corpuscular Hemoglobin 25.2 L, Mean Corpuscular Hemoglobin Concent 30.8 L, Red Cell Distribution Width 17.0 H, Calcium Level 7.9 L, Aspartate Amino Transf (AST/SGOT) 15, Alanine Aminotransferase (ALT/SGPT) 15, Alkaline Phosphatase 70, Total Bilirubin 0.3, Total Protein 5.4 L, Albumin 2.7 L Microbiology Microbiology 10/19/18 Blood Culture - Preliminary, Resulted No Growth after 72 hours. All specime... 10/19/18 Blood Culture - Preliminary, Resulted No Growth after 72 hours. All specime... 10/19/18 Urine Culture - Final, Complete Escherichia Coli MARIA ANTONIA RUBALCAVA MD Oct 23, 2018 21:01
[2018-10-23] MEDS: HEPARIN DRIP 25,000 UNITS in APPROPRIATE DILUENT 1 EA IV SCH (21:03)
[2018-10-23 22:00] VITALS: BP 149/85
[2018-10-23] MEDS: METOPROLOL TART 50 MG TAB PO SCH (23:05)
[2018-10-24] MEDS: RAMELTEON 8 MG TAB (ROZEREM) PO PRN ×2 (00:14→21:38)
[2018-10-24 02:00] VITALS: BP 140/72
[2018-10-24] MEDS: KCL 40MEQ IN D5/0.45NS 1000ML 1,000 ML IV SCH (02:04)
[2018-10-24 06:00] VITALS: BP 147/74
[2018-10-24] MEDS: MORPHINE 4 MG/ML 1ML VIAL/SYRINGE (J2270) IV PRN ×2 (06:18→21:40)
[2018-10-24 06:48] LABS: HEMATOCRIT 31.2 % (36.0-47.0); HEMOGLOBIN 9.6 g/dl (12.0-15.5); MEAN CORPUSCULAR HEMOGLOBIN 26.2 pg (27.0-33.0); MEAN CORPUSCULAR HGB CONC 30.8 g/dl (32.0-36.5); PLATELET COUNT, AUTOMATED 207 10^3/uL (150-450); RED BLOOD COUNT 3.67 10^6/uL (4.00-5.40); WHITE BLOOD COUNT 6.1 10^3/uL (4.0-10.0)
[2018-10-24 07:11] LABS: ALBUMIN 2.8 GM/DL (3.2-5.2); ALT/SGPT 18 U/L (12-78); BILIRUBIN,TOTAL 0.3 MG/DL (0.2-1.0); BLOOD UREA NITROGEN 3 MG/DL (7-18); CALCIUM LEVEL 7.7 MG/DL (8.8-10.2); CARBON DIOXIDE LEVEL 24 MEQ/L (21-32); CHLORIDE LEVEL 110 MEQ/L (98-107); CREATININE FOR GFR 0.65 MG/DL (0.55-1.30); GLOMERULAR FILTRATION RATE > 60.0 (>32); GLUCOSE, FASTING 132 MG/DL (70-100); POTASSIUM SERUM 3.8 MEQ/L (3.5-5.1); SODIUM LEVEL 141 MEQ/L (136-145); TOTAL PROTEIN 5.9 GM/DL (6.4-8.2)
[2018-10-24] MEDS: DOCUSATE SODIUM 100 MG CAP PO SCH ×2 (08:37→20:16)
[2018-10-24] MEDS: SIMETHICONE 80 MG CHEW TAB PO SCH ×4 (08:37→20:16)
[2018-10-24] MEDS: LISINOPRIL 40 MG TAB PO SCH (08:38)
[2018-10-24] MEDS: METOPROLOL TART 50 MG TAB PO SCH ×2 (08:38→20:18)
[2018-10-24] MEDS: PREPARATION H SUPP (HEMORRHOID) PR SCH ×2 (08:38→19:29)
[2018-10-24] MEDS: FLUTICASONE PROP 0.05% NASAL SPRAY 16 GM (FLONASE) NARES SCH ×2 (08:38→20:18)
[2018-10-24] MEDS: amLODIPine 10 MG TAB PO SCH (08:38)
[2018-10-24 10:00] VITALS: BP 126/79
--- NOTE | 2018-10-24 10:12 | REP ---
ABDOMEN, FLAT UPRIGHT, PA CHEST, THREE VIEWS: HISTORY: Small bowel obstruction. COMPARISON: 10/23/2018 Air is present in small and large intestine. Several air fluid levels are present. There are no dilated loops of intestine. There is no pneumoperitoneum. A minimal increase in interstitial markings is present in the lungs consistent with chronic interstitial change. The cardiac silhouette is enlarged. A hiatal hernia is present. IMPRESSION: The above findings are consistent with small bowel obstruction with several air fluid levels present compared to the previous study. Electronically Signed by Uli Bran MD 10/24/2018 10:21 A
[2018-10-24] MEDS: ACETAMINOPHEN TAB 650MG DOSE (2X325MG) PO PRN (12:06)
[2018-10-24 14:00] VITALS: BP 136/66
--- NOTE | 2018-10-24 14:03 | IPN ---
DATE: 10/24/2018 The patient overall seems to be doing well. Her abdomen is still not significantly distended, not tender today, similar to yesterday. She has been tolerating clear liquids, although because of her short term memory it has difficult to tell exactly what is going on. She has been able to get up out of bed and use the bathroom and states that she had a small bowel movement this morning, although nothing has been recorded. On her physical examination, she does have some mild distension throughout but it is mostly air. It is tympany without any guarding, without any rebound. With distraction she has no tenderness at this time. IMPRESSION AND PLAN I anticipate her small bowel obstruction has resolved and I would like to get an upper GI with small-bowel follow-through with some water-soluble contrast not only as a diagnostic test but possibly also therapeutic. Unfortunately radiology states they do not have a technicians available to proceed with a small-bowel follow-through thus will order a CT with p.o. contrast without IV contrast. Will continue with clears for now since she seems to be tolerating these, but I do feel that it is reasonable to Hep-Lock her IV and we will see what the CT scan shows. If it shows flow into the colon then I would recommend that we progress her to a regular diet.
[2018-10-24] MEDS: GASTROGRAFIN SOLUTION 30ML PO SCH ×2 (14:20→14:52)
--- NOTE | 2018-10-24 14:49 | IPNPDOC ---
Subjective Date Seen The patient was seen on 10/24/18. Subjective Chief Complaint/HPI Her abdominal pain has improved. She is able to tolerate clear diet without nausea or vomiting. The last BM was 2 days ago. She has mild spotting of blood from the nose. General: Denies: ROS Unobtainable, Chills, Night Sweats, Fatigue, Malaise, Normal Appetite, Other Symptoms Constitutional: Reports: Night Sweats Eyes: Denies: Pain, Vision change, Conjunctivae inflammation, Eyelid inflammation, Redness, Other ENT: Reports: Sinus Congestion Skin: Denies: Rash, Lesions, Jaundice, Bruising, Itching, Dry, Breakdown, Nail Changes, Other Pulmonary: Denies: Dyspnea, Cough, Pleuritic Chest Pain, Other Symptoms Cardiovascular: Denies: Chest Pain, Palpitations, Orthopnea, Paroxysmal Noc. Dyspnea, Edema, Lt Headedness, Other Symptoms Gastrointestinal: Denies: Nausea, Vomiting, Abdominal Pain, Diarrhea, Constipation, Melena, Hematochezia, Other Symptoms Genitourinary: Denies: Dysuria, Frequency, Incontinence, Hematuria, Retention, Other Symptoms Hematologic: Denies: Bruising, Bleeding Excessively, Petecchia, Purpura, Enlar ged Lymph Nodes, Other Hematologic Endocrine: Denies: Polydipsia, Polyphagia, Polyuria, Heat Intolerance, Cold Intolerance, Other Endocrine Sx Musculoskeletal: Denies: Neck Pain, Back Pain, Shoulder Pain, Arm Pain, Hand Pain, Leg Pain, Foot Pain, Joint Pain, Muscle Pain, Spasms, Other Symptoms Neurological: Denies: Weakness, Numbness, Incoordination, Change in speech, Confusion, Seizures, Other Symptoms Psych: Denies: Mood Normal, Anxiety, Depression, Memory Issues, Thoughts of Self Harm, Anger, Thoughts of Harming Other, Other Psych Objective Physical Examination General Exam: Positive: Alert, Cooperative, No Acute Distress Eye Exam: Positive: PERRLA, Conjunctiva & lids normal ENT Exam: Positive: Other ENT (hard of hearing); Negative: Atraumatic (healing nasal scar), Nares Patent (congested) Neck Exam: Positive: Supple; Negative: JVD, thyromegaly Chest Exam: Positive: Clear to auscultation, Normal air movement; Negative: Rales, Rhonchi Heart Exam: Positive: Tachycardic, Irregular Rhythm Telemetry: Positive: Atrial fibrillation Abdomen Exam: Positive: Normal bowel sounds, Other (no rigidity, guarding, or rebound tenderness) Extremity Exam: Negative: Clubbing, Cyanosis, Edema Skin Exam: Positive: Nl turgor and temperature; Negative: Rash, Breakdown Neuro Exam: Positive: Normal Speech Psych Exam: Positive: Mental status NL, Oriented x 3 Assessment /Plan Problems (1) Small bowel obstruction Status: Acute Problem Text: - Her abdominal pain has resolved. She moved BM two days ago. Repeat DX shows persistent SBO, but clinically she has improved. - Dr. Teran wanted to have small bowel follow through, but it is not available today. Instead, the patient will have CT abdomen with PO contrast, not IV contrast to see if the contrast reaches the large intestine. - Continues clear liquid now. If SBO is proven to be released, will start regular diet. (2) New onset atrial fibrillation Status: Acute Problem Text: - Will stop heparin gtt, given slight blood spotting in the nose. Will start aspirin 81 BID to prevent stroke. - I had a long conversation with the patient's daughter regarding anticoagulation in the setting of a fib. 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 It would be reasonable to have aspirin instead of full anticoagulation to prevent life threatening bleeding, at the same time, preventing stroke, although aspirin is likely less effective to prevent stroke than full anticoagulation including DOACs, lovenox, or coumadin. - If the patient will need operation, Dr. Teran states that he can have surgery on aspirin. (3) Mass of nasal sinus Problem Text: - Pathology shows malignant melanoma. - The patient will follow oncology as an outpatient. (4) DDD (degenerative disc disease) Problem Text: -presenting with significant weakness S/P fall -consult PT/OT for evaluation, recommendations (5) DVT prophylaxis Problem Text: -Heparin # Anemia? - Closely follow H/H. # HTN - Increased lisinopril to 40 daily from 20 daily. Metoprolol 50 BID. Continue to closely follow BP meds. (6) Advance care planning Problem Text: - code status is full code - anticipate discharge home post resolution of SBO # Mild protein calorie malnutrition - Encourage PO intake. Currently on clear liquid diet. Plan/VTE VTE Prophylaxis Ordered?: Yes VS, I&O, 24H, Fishbone Vital Signs/I&O Vital Signs Date Time Temp Pulse Resp B/P (MAP) Pulse Ox O2 Delivery O2 Flow Rate FiO2 10/24/18 14:00 97.8 94 17 136/66 (89) 100 10/19/18 16:32 Room Air I&O- Last 24 Hours up to 6 AM 10/24/18 06:00 Intake Total 3227 ml Output Total 1850 ml Balance 1377 ml Laboratory Data 24H LABS Laboratory Tests 2 10/24/18 06:27: Nucleated Red Blood Cells % (auto) 0.0, Activated Partial Thromboplast Time 119.9H, Anion Gap 7L, Glomerular Filtration Rate > 60.0, Blood Urea Nitrogen 3L, Creatinine 0.65, Sodium Level 141, Potassium Level 3.8, Chloride Level 110H, Carbon Dioxide Level 24, Calcium Level 7.7L, Aspartate Amino Transf (AST/SGOT) 20, Alanine Aminotransferase (ALT/SGPT) 18, Alkaline Phosphatase 81, Total Bili morocho 0.3, Total Protein 5.9L, Albumin 2.8L, Albumin/Globulin Ratio 0.90L 10/24/18 13:31: Activated Partial Thromboplast Time 72.2H CBC/BMP Laboratory Tests 10/24/18 06:27 Red Blood Count 3.67 L, Mean Corpuscular Volume 85.0, Mean Corpuscular Hemoglobin 26.2 L, Mean Corpuscular Hemoglobin Concent 30.8 L, Red Cell Distribution Width 17.3 H, Calcium Level 7.7 L, Aspartate Amino Transf (AST/SGOT) 20, Alanine Aminotransferase (ALT/SGPT) 18, Alkaline Phosphatase 81, Total Bilirubin 0.3, Total Protein 5.9 L, Albumin 2.8 L Microbiology Microbiology 10/19/18 Blood Culture - Final, Complete NO GROWTH AFTER 5 DAYS 10/19/18 Blood Culture - Final, Complete NO GROWTH AFTER 5 DAYS 10/19/18 Urine Culture - Final, Complete Escherichia Coli MARIA ANTONIA RUBALCAVA MD Oct 24, 2018 14:49
[2018-10-24 18:00] VITALS: BP 148/73
[2018-10-24] MEDS: ONDANSETRON 4MG/2ML VIAL (J2405) IV PRN (18:20)
[2018-10-24] MEDS: LACTOBACILLUS ACIDOPHILUS CAP (BACID) PO SCH (20:16)
[2018-10-24] MEDS: ASPIRIN 81 MG ENTERIC TAB PO SCH (20:16)
[2018-10-24 22:00] VITALS: BP 136/79
[2018-10-25 02:00] VITALS: BP 155/94
[2018-10-25 06:00] VITALS: BP 156/71
[2018-10-25 06:25] LABS: HEMATOCRIT 31.6 % (36.0-47.0); HEMOGLOBIN 9.7 g/dl (12.0-15.5); MEAN CORPUSCULAR HEMOGLOBIN 26.3 pg (27.0-33.0); MEAN CORPUSCULAR HGB CONC 30.7 g/dl (32.0-36.5); MEAN CORPUSCULAR VOLUME 85.6 fl (80.0-96.0); PLATELET COUNT, AUTOMATED 188 10^3/uL (150-450); RED BLOOD COUNT 3.69 10^6/uL (4.00-5.40); WHITE BLOOD COUNT 4.9 10^3/uL (4.0-10.0)
[2018-10-25 06:50] LABS: ALBUMIN 2.8 GM/DL (3.2-5.2); ALT/SGPT 22 U/L (12-78); BILIRUBIN,TOTAL 0.3 MG/DL (0.2-1.0); BLOOD UREA NITROGEN 2 MG/DL (7-18); CALCIUM LEVEL 8.1 MG/DL (8.8-10.2); CARBON DIOXIDE LEVEL 29 MEQ/L (21-32); CHLORIDE LEVEL 109 MEQ/L (98-107); CREATININE FOR GFR 0.54 MG/DL (0.55-1.30); GLOMERULAR FILTRATION RATE > 60.0 (>32); GLUCOSE, FASTING 91 MG/DL (70-100); POTASSIUM SERUM 3.4 MEQ/L (3.5-5.1); SODIUM LEVEL 144 MEQ/L (136-145); TOTAL PROTEIN 5.4 GM/DL (6.4-8.2)
--- NOTE | 2018-10-25 07:20 | REP ---
CT ABDOMEN AND PELVIS WITHOUT CONTRAST: HISTORY: Possible obstruction. COMPARISON: 10/21/2018. The patient is status post cholecystectomy. There is dilatation of the common bile duct and intrapelvic biliary system. A 1.4 cm mass is present in the left adrenal gland. There is moderate to severe dilatation of the right renal pelvis to the level of the ureteropelvic junction. The pancreas, right adrenal gland and left kidney are normal in appearance. A large hiatal hernia is present. Small areas of atelectasis or infiltrate are present in the lower lobes. Small bilateral pleural effusions are present. There are several dilated loops of small intestine in the mid abdomen. The number of dilated loops of small intestine is decreased compared to the previous study. There is thickening of several loops of mid and distal small intestine consistent with edema or ischemia. There is no mass or free fluid. The patient is status post hysterectomy. The urinary bladder is normal in appearance. Degenerative change is present in the thoracolumbar spine. There is scoliosis convex to the left. IMPRESSION: 1. The patient is status post cholecystectomy. 2. Bibasilar atelectasis or infiltrates and small bilateral pleural effusions. 3. The patient is status post hysterectomy. 4. There are several dilated loops of small intestine in the mid abdomen. The number of dilated loops is decreased compared to the previous study. There is bowel wall thickening of loops of mid and distal small intestine consistent with edema or ischemia. Electronically Signed by Uli Bran MD 10/25/2018 09:05 A
[2018-10-25] MEDS: DOCUSATE SODIUM 100 MG CAP PO SCH ×2 (08:29→20:07)
[2018-10-25] MEDS: ASPIRIN 81 MG ENTERIC TAB PO SCH ×2 (08:30→20:07)
[2018-10-25] MEDS: SIMETHICONE 80 MG CHEW TAB PO SCH ×4 (08:30→20:07)
[2018-10-25] MEDS: amLODIPine 10 MG TAB PO SCH (08:31)
[2018-10-25] MEDS: LISINOPRIL 40 MG TAB PO SCH (08:31)
[2018-10-25] MEDS: LACTOBACILLUS ACIDOPHILUS CAP (BACID) PO SCH ×4 (08:31→20:07)
[2018-10-25] MEDS: FLUTICASONE PROP 0.05% NASAL SPRAY 16 GM (FLONASE) NARES SCH ×2 (08:31→20:08)
[2018-10-25] MEDS: METOPROLOL TART 25 MG TABLET PO SCH ×2 (08:31→20:08)
[2018-10-25] MEDS: PREPARATION H SUPP (HEMORRHOID) PR SCH ×2 (08:33→20:09)
[2018-10-25] MEDS: ONDANSETRON 4MG/2ML VIAL (J2405) IV PRN (09:20)
[2018-10-25 10:00] VITALS: BP 152/80
[2018-10-25] MEDS ORDERED: MAALOX 30 ML SUSP *UDC PO ONE (12:00)
--- NOTE | 2018-10-25 13:15 | IPNPDOC ---
Subjective Date Seen The patient was seen on 10/25/18. Subjective Chief Complaint/HPI The patient has decreased abdominal pain. She has passed gas, but no BM today. No fevers, chills. After diet was escalated, she became nauseated. Diet is back to clear liquid. General: Reports: Fatigue; Denies: ROS Unobtainable, Chills, Night Sweats, Malaise, Normal Appetite, Other Symptoms Constitutional: Reports: Night Sweats; Denies: Chills, Fever, Malaise, Weakness, Fatigue, Weight Loss, Lethargy, Other Eyes: Denies: Pain, Vision change, Conjunctivae inflammation, Eyelid inflammation, Redness, Other ENT: Denies: Head Aches, Ear Pain, Dysphagia, Sinus Congestion, Post Nasal Drip, Sore Throat, Epistaxis, Other Symptoms Skin: Denies: Rash, Lesions, Jaundice, Bruising, Itching, Dry, Breakdown, Nail Changes, Other Pulmonary: Denies: Dyspnea, Cough, Pleuritic Chest Pain, Other Symptoms Cardiovascular: Denies: Chest Pain, Palpitations, Orthopnea, Paroxysmal Noc. Dyspnea, Edema, Lt Headedness, Other Symptoms Gastrointestinal: Reports: Nausea, Abdominal Pain Genitourinary: Denies: Dysuria, Frequency, Incontinence, Hematuria, Retention, Other Symptoms Hematologic: Denies: Bruising, Bleeding Excessively, Petecchia, Purpura, Enlarged Lymph Nodes, Other Hematologic Endocrine: Denies: Polydipsia, Polyphagia, Polyuria, Heat Intolerance, Cold Intolerance, Other Endocrine Sx Musculoskeletal: Denies: Neck Pain, Back Pain, Shoulder Pain, Arm Pain, Hand Pain, Leg Pain, Foot Pain, Joint Pain, Muscle Pain, Spasms, Other Symptoms Neurological: Denies: Weakness, Numbness, Incoordination, Change in speech, Confusion, Seizures, Other Symptoms Psych: Denies: Mood Normal, Anxiety, Depression, Memory Issues, Thoughts of Self Harm, Anger, Thoughts of Harming Other, Other Psych Objective Physical Examination General Exam: Positive: Alert, Cooperative, No Acute Distress Eye Exam: Positive: PERRLA, Conjunctiva & lids normal ENT Exam: Positive: Other ENT (hard of hearing); Negative: Atraumatic (healing nasal scar), Nares Patent (congested) Neck Exam: Positive: Supple; Negative: JVD, thyromegaly Chest Exam: Positive: Clear to auscultation, Normal air movement; Negative: Rales, Rhonchi Heart Exam: Positive: Tachycardic, Irregular Rhythm Telemetry: Positive: Atrial fibrillation Abdomen Exam: Positive: Normal bowel sounds, Other (no rigidity, guarding, or rebound tenderness) Extremity Exam: Negative: Clubbing, Cyanosis, Edema Skin Exam: Positive: Nl turgor and temperature; Negative: Rash, Breakdown Neuro Exam: Positive: Normal Speech Psych Exam: Positive: Mental status NL, Oriented x 3 Assessment /Plan Problems (1) Small bowel obstruction Status: Acute Problem Text: - Her abdominal pain has resolved. Wanted to have small bowel follow through, but it cannot be done during the weekend. Instead, she had CT abd/pelvis w/o IV, but with contrast, which showed multiple guts with edema and possible ischemia. Spoke with Dr. Teran, and she will have abd/pelvis with small bowel follow through tomorrow. If she does not have resolution of SBO, she will have surgery. - Continues clear liquid now. (2) New onset atrial fibrillation Status: Acute Problem Text: - Heparin gtt was stopped, and aspirin 81 BID was started for anticoagulation. - If the patient will need operation, Dr. Teran states that he can have surgery on aspirin. (3) Mass of nasal sinus Problem Text: - Pathology shows malignant melanoma. - The patient will follow oncology as an outpatient. (4) DDD (degenerative disc disease) Problem Text: -presenting with significant weakness S/P fall -consult PT/OT for evaluation, recommendations (5) DVT prophylaxis Problem Text: -Heparin # Anemia? - Closely follow H/H. # HTN - Increased lisinopril to 40 daily from 20 daily. Metoprolol 50 BID increased to 75 BID. Continue to closely follow BP meds. (6) Advance care planning Problem Text: - code status is full code - anticipate discharge home post resolution of SBO # Mild protein calorie malnutrition - Encourage PO intake. Currently on clear liquid diet. Plan/VTE VTE Prophylaxis Ordered?: Yes (aspirin 81 BID) VS, I&O, 24H, Fishbone Vital Signs/I&O Vital Signs Date Time Temp Pulse Resp B/P (MAP) Pulse Ox O2 Delivery O2 Flow Rate FiO2 10/25/18 08:31 114 161/86 10/25/18 06:00 97.7 20 96 10/19/18 16:32 Room Air I&O- Last 24 Hours up to 6 AM 10/25/18 06:00 Intake Total 2404 ml Output Total 900 ml Balance 1504 ml Laboratory Data 24H LABS Laboratory Tests 2 10/24/18 13:31: Activated Partial Thromboplast Time 72.2H 10/25/18 05:52: Nucleated Red Blood Cells % (auto) 0.0, Anion Gap 6L, Glomerular Filtration Rate > 60.0, Blood Urea Nitrogen 2L, Creatinine 0.54L, Sodium Level 144, Potassium Level 3.4L, Chloride Level 109H, Carbon Dioxide Level 29, Calcium Level 8.1L, Aspartate Amino Transf (AST/SGOT) 16, Alanine Aminotransferase (ALT/SGPT) 22, Alkaline Phosphatase 79, Total Bilirubin 0.3, Total Protein 5.4L, Albumin 2.8L, Albumin/Globulin Ratio 1.08 CBC/BMP Laboratory Tests 10/25/18 05:52 Red Blood Count 3.69 L, Mean Corpuscular Volume 85.6, Mean Corpuscular Hemoglobin 26.3 L, Mean Corpuscular Hemoglobin Concent 30.7 L, Red Cell Distribution Width 17.4 H, Calcium Level 8.1 L, Aspartate Amino Transf (AST/SGOT) 16, Alanine Aminotransferase (ALT/SGPT) 22, Alkaline Phosphatase 79, Total Bilirubin 0.3, Total Protein 5.4 L, Albumin 2.8 L Microbiology Microbiology 10/19/18 Blood Culture - Final, Complete NO GROWTH AFTER 5 DAYS 10/19/18 Blood Culture - Final, Complete NO GROWTH AFTER 5 DAYS 10/19/18 Urine Culture - Final, Complete Escherichia Coli MARIA ANTONIA RUBALCAVA MD Oct 25, 2018 13:15
[2018-10-25 14:00] VITALS: BP 150/72
--- NOTE | 2018-10-25 21:37 | IPN ---
DATE: 10/25/2018 The patient overall did not tolerate the diet. When I looked at her studies yesterday from her CAT scan, she did have some edematous distal small bowel and I anticipate that this is probably from the small bowel obstruction that was persistent for a while there. Given that she has not had an increased white count and truly no abdominal tenderness, I anticipate that this was not an infarcted piece of bowel or ischemic portion of bowel. Unfortunately, she has not tolerated the diet given this edematous bowel and she has had some crampy abdominal pain. Overall, her abdomen is a little more distended than it was yesterday, mildly uncomfortable to palpation, but no significant peritoneal signs are appreciated. IMPRESSION/PLAN: The patient has a partial obstruction secondary to edematous small bowel. I do feel that it may be reasonable to proceed with a small bowel follow through over the next few days to rule out a complete obstruction, although I anticipate that this is unlikely at this time and it may just take a couple of more days for her edema in the small bowel to resolve. We will get a followup x-ray in the morning and determine our next course of action depending on that. I do recommend that we still avoid long-term anticoagulation for her, aspirin therapy is reasonable from my standpoint. Otherwise, if she is not tolerating adequate clear liquids, we may need to start her on some TPN via a peripherally inserted central catheter (PICC) line starting tomorrow.
[2018-10-25 22:00] VITALS: BP 152/60
[2018-10-25] MEDS: RAMELTEON 8 MG TAB (ROZEREM) PO PRN (22:07)
[2018-10-25] MEDS: MORPHINE 4 MG/ML 1ML VIAL/SYRINGE (J2270) IV PRN (22:08)
[2018-10-26 02:00] VITALS: BP 157/87
[2018-10-26 06:00] VITALS: BP 156/88
[2018-10-26 06:09] LABS: HEMATOCRIT 32.2 % (36.0-47.0); HEMOGLOBIN 9.9 g/dl (12.0-15.5); MEAN CORPUSCULAR HEMOGLOBIN 26.3 pg (27.0-33.0); MEAN CORPUSCULAR HGB CONC 30.7 g/dl (32.0-36.5); MEAN CORPUSCULAR VOLUME 85.4 fl (80.0-96.0); PLATELET COUNT, AUTOMATED 192 10^3/uL (150-450); RED BLOOD COUNT 3.77 10^6/uL (4.00-5.40); WHITE BLOOD COUNT 5.1 10^3/uL (4.0-10.0)
[2018-10-26 06:46] LABS: ALBUMIN 2.6 GM/DL (3.2-5.2); ALT/SGPT 21 U/L (12-78); BILIRUBIN,TOTAL 0.5 MG/DL (0.2-1.0); BLOOD UREA NITROGEN 3 MG/DL (7-18); CALCIUM LEVEL 7.6 MG/DL (8.8-10.2); CARBON DIOXIDE LEVEL 30 MEQ/L (21-32); CHLORIDE LEVEL 105 MEQ/L (98-107); CREATININE FOR GFR 0.47 MG/DL (0.55-1.30); GLOMERULAR FILTRATION RATE > 60.0 (>32); GLUCOSE, FASTING 98 MG/DL (70-100); POTASSIUM SERUM 2.8 MEQ/L (3.5-5.1); SODIUM LEVEL 142 MEQ/L (136-145); TOTAL PROTEIN 5.7 GM/DL (6.4-8.2)
[2018-10-26] MEDS: KCL 40MEQ IN D5/0.45NS 1000ML 1,000 ML IV SCH ×2 (08:32→20:33)
[2018-10-26] MEDS: LISINOPRIL 40 MG TAB PO SCH (08:33)
[2018-10-26] MEDS: amLODIPine 10 MG TAB PO SCH (08:33)
[2018-10-26] MEDS: FLUTICASONE PROP 0.05% NASAL SPRAY 16 GM (FLONASE) NARES SCH ×2 (08:34→20:38)
[2018-10-26] MEDS: ASPIRIN 81 MG ENTERIC TAB PO SCH ×2 (08:34→20:37)
[2018-10-26] MEDS: LACTOBACILLUS ACIDOPHILUS CAP (BACID) PO SCH ×4 (08:34→20:34)
[2018-10-26] MEDS: METOPROLOL TARTRATE 100 MG TAB PO SCH ×2 (08:34→20:37)
[2018-10-26] MEDS: SIMETHICONE 80 MG CHEW TAB PO SCH ×4 (08:34→20:35)
[2018-10-26] MEDS: DOCUSATE SODIUM 100 MG CAP PO SCH ×2 (08:34→20:34)
[2018-10-26] MEDS: PREPARATION H SUPP (HEMORRHOID) PR SCH ×2 (08:35→20:38)
[2018-10-26] MEDS: ACETAMINOPHEN TAB 650MG DOSE (2X325MG) PO PRN (08:56)
[2018-10-26 11:00] VITALS: BP 143/77
--- NOTE | 2018-10-26 12:19 | IPNPDOC ---
Subjective Date Seen The patient was seen on 10/26/18. Subjective Chief Complaint/HPI The patient denies abdominal pain. Per the patient herself, the last time she had a BM was 3 days ago. However, when I had a conversation with Dr. Teran, he mentioned that the patient had a few BM this morning per the patient's daughter. The patient denies a fever, chills, nausea, vomiting. Denies chest pain, palpitation, or shortness of breath. General: Reports: Fatigue Constitutional: Reports: Night Sweats Eyes: Denies: Pain, Vision change, Conjunctivae inflammation, Eyelid inflammation, Redness, Other ENT: Denies: Head Aches, Ear Pain, Dysphagia, Sinus Congestion, Post Nasal Drip, Sore Throat, Epistaxis, Other Symptoms Skin: Denies: Rash, Lesions, Jaundice, Bruising, Itching, Dry, Breakdown, Nail Changes, Other Pulmonary: Denies: Dyspnea, Cough, Pleuritic Chest Pain, Other Symptoms Cardiovascular: Denies: Chest Pain, Palpitations, Orthopnea, Paroxysmal Noc. Dyspnea, Edema, Lt Headedness, Other Symptoms Gastrointestinal: Reports: Other Symptoms (diarrhea?) Genitourinary: Denies: Dysuria, Frequency, Incontinence, Hematuria, Retention, Other Symptoms Hematologic: Denies: Bruising, Bleeding Excessively, Petecchia, Purpura, Enlarged Lymph Nodes, Other Hematologic Endocrine: Denies: Polydipsia, Polyphagia, Polyuria, Heat Intolerance, Cold Intolerance, Other Endocrine Sx Musculoskeletal: Denies: Neck Pain, Back Pain, Shoulder Pain, Arm Pain, Hand Pain, Leg Pain, Foot Pain, Joint Pain, Muscle Pain, Spasms, Other Symptoms Neurological: Denies: Weakness, Numbness, Incoordination, Change in speech, Confusion, Seizures, Other Symptoms Psych: Denies: Mood Normal, Anxiety, Depression, Memory Issues, Thoughts of Self Harm, Anger, Thoughts of Harming Other, Other Psych Objective Physical Examination General Exam: Positive: Alert, Cooperative, No Acute Distress Eye Exam: Positive: PERRLA, Conjunctiva & lids normal ENT Exam: Positive: Other ENT (hard of hearing); Negative: Atraumatic (healing nasal scar), Nares Patent (congested) Neck Exam: Positive: Supple; Negative: JVD, thyromegaly Chest Exam: Positive: Clear to auscultation, Normal air movement; Negative: Rales, Rhonchi Heart Exam: Positive: Tachycardic, Irregular Rhythm Telemetry: Positive: Atrial fibrillation Abdomen Exam: Positive: Normal bowel sounds, Other (no rigidity, guarding, or rebound tenderness) Extremity Exam: Negative: Clubbing, Cyanosis, Edema Skin Exam: Positive: Nl turgor and temperature; Negative: Rash, Breakdown Neuro Exam: Positive: Normal Speech Psych Exam: Positive: Mental status NL, Oriented x 3 Assessment /Plan Problems (1) Small bowel obstruction Status: Acute Problem Text: - Her abdominal pain has resolved. Per the patient's daughter, t he patient had a few BM? Currently, Dr. Teran ordered abdominal DX, and diet has been escalated to full liquid from clear liquid. (2) New onset atrial fibrillation Status: Acute Problem Text: - Heparin gtt was stopped, and aspirin 81 BID was started for anticoagulation. - If the patient will need operation, Dr. Teran states that he can have surgery on aspirin. (3) Mass of nasal sinus Problem Text: - Pathology shows malignant melanoma. - The patient will follow oncology as an outpatient. (4) DDD (degenerative disc disease) Problem Text: -presenting with significant weakness S/P fall -consult PT/OT for evaluation, recommendations (5) DVT prophylaxis Problem Text: - Aspirin 81 BID # Anemia? - Closely follow H/H. # HTN - Increased lisinopril to 40 daily from 20 daily. Metoprolol 50 BID increased to 75 BID, again increased to 100 BID. Continue to closely follow BP meds. # Hypokalemia - She did not tolerate KCl PO tab or IV KCl due to burning pain. Will give KCl 40 mEq-mised D5 1/2 NS. (6) Advance care planning Problem Text: - code status is full code - anticipate discharge home post resolution of SBO # Mild protein calorie malnutrition - Encourage PO intake. Currently on clear liquid diet. Plan/VTE VTE Prophylaxis Ordered?: Yes (aspirin 81 BID) VS, I&O, 24H, Fishbone Vital Signs/I&O Vital Signs Date Time Temp Pulse Resp B/P (MAP) Pulse Ox O2 Delivery O2 Flow Rate FiO2 10/26/18 11:00 97.7 93 20 143/77 (99) 96 I&O- Last 24 Hours up to 6 AM 10/26/18 06:00 Intake Total 860 ml Output Total 100 ml Balance 760 ml Laboratory Data 24H LABS Laboratory Tests 2 10/26/18 05:45: Nucleated Red Blood Cells % (auto) 0.0, Anion Gap 7L, Glomerular Filtration Rate > 60.0, Blood Urea Nitrogen 3L, Creatinine 0.47L, Sodium Level 142, Potassium Level 2.8*L, Chloride Level 105, Carbon Dioxide Level 30, Calcium Level 7.6L, Aspartate Amino Transf (AST/SGOT) 18, Alanine Aminotransferase (ALT/SGPT) 21, Alkaline Phosphatase 90, Total Bilirubin 0.5#, Total Protein 5.7L, Albumin 2.6L, Albumin/Globulin Ratio 0.84L CBC/BMP Laboratory Tests 10/26/18 05:45 Red Blood Count 3.77 L, Mean Corpuscular Volume 85.4, Mean Corpuscular Hemoglobin 26.3 L, Mean Corpuscular Hemoglobin Concent 30.7 L, Red Cell Distribution Width 17.4 H, Calcium Level 7.6 L, Aspartate Amino Transf (AST/SGOT) 18, Alanine Aminotransferase (ALT/SGPT) 21, Alkaline Phosphatase 90, Total Bilirubin 0.5 #, Total Protein 5.7 L, Albumin 2.6 L Microbiology Microbiology 10/19/18 Blood Culture - Final, Complete NO GROWTH AFTER 5 DAYS 10/19/18 Blood Culture - Final, Complete NO GROWTH AFTER 5 DAYS 10/19/18 Urine Culture - Final, Complete Escherichia Coli MARIA ANTONIA RUBALCAVA MD Oct 26, 2018 12:19
--- NOTE | 2018-10-26 13:28 | REP ---
Acute abdominal series: Three views. History: Enteritis. Comparison radiographs are from October 24, 2018. Findings: Upright chest radiograph demonstrates a moderate size hiatal hernia behind the heart. Mild cardiomegaly is observed. Scoliosis is noted in the thoracolumbar spine. The lungs are well inflated and clear. No free subdiaphragmatic air is seen. Supine and erect views of the abdomen show surgical sutures and clips in the abdomen as before. There are a few colonic air fluid levels scattered in the abdomen. No large or small bowel dilation is seen. Findings are compatible with the history of enteritis. Impression: There are multiple colonic air fluid levels noted consistent with the history of enteritis. No large or small bowel dilation seen. Postoperative changes noted. Hiatal hernia. Electronically Signed by Javier Starkey MD 10/26/2018 03:47 P
[2018-10-26 14:00] VITALS: BP 137/70
[2018-10-26] MEDS: MAALOX 30 ML SUSP *UDC PO PRN ×2 (15:41→20:46)
[2018-10-26] MEDS: traMADol 50 MG TAB PO PRN (15:42)
[2018-10-26] MEDS ORDERED: MORPHINE 4 MG/ML 1ML VIAL/SYRINGE (J2270) IV PRN (16:00)
[2018-10-26 16:30] VITALS: BP 141/87
[2018-10-26 20:33] LABS: CLOSTRIDIUM DIFFICILE PCR NEGATIVE (NEGATIVE)
[2018-10-26 22:00] VITALS: BP 137/74
[2018-10-26] MEDS: RAMELTEON 8 MG TAB (ROZEREM) PO PRN (22:21)
[2018-10-27 02:00] VITALS: BP 140/73
[2018-10-27] MEDS: traMADol 50 MG TAB PO PRN ×2 (03:41→21:04)
[2018-10-27 06:00] VITALS: BP 152/94
[2018-10-27 06:40] LABS: MEAN CORPUSCULAR HEMOGLOBIN 26.1 pg (27.0-33.0); MEAN CORPUSCULAR HGB CONC 30.3 g/dl (32.0-36.5); MEAN CORPUSCULAR VOLUME 86.2 fl (80.0-96.0); PLATELET COUNT, AUTOMATED 199 10^3/uL (150-450); RED BLOOD COUNT 3.83 10^6/uL (4.00-5.40); WHITE BLOOD COUNT 6.7 10^3/uL (4.0-10.0)
[2018-10-27 07:23] LABS: ALBUMIN 2.9 GM/DL (3.2-5.2); ALT/SGPT 21 U/L (12-78); BILIRUBIN,TOTAL 0.2 MG/DL (0.2-1.0); BLOOD UREA NITROGEN 4 MG/DL (7-18); CALCIUM LEVEL 8.1 MG/DL (8.8-10.2); CARBON DIOXIDE LEVEL 28 MEQ/L (21-32); CHLORIDE LEVEL 104 MEQ/L (98-107); GLOMERULAR FILTRATION RATE > 60.0 (>32); GLUCOSE, FASTING 96 MG/DL (70-100); POTASSIUM SERUM 3.9 MEQ/L (3.5-5.1); SODIUM LEVEL 139 MEQ/L (136-145); TOTAL PROTEIN 6.1 GM/DL (6.4-8.2)
[2018-10-27] MEDS: SIMETHICONE 80 MG CHEW TAB PO SCH ×4 (08:47→21:00)
[2018-10-27] MEDS: ASPIRIN 81 MG ENTERIC TAB PO SCH ×2 (08:47→20:59)
[2018-10-27] MEDS: LISINOPRIL 40 MG TAB PO SCH (08:47)
[2018-10-27] MEDS: LACTOBACILLUS ACIDOPHILUS CAP (BACID) PO SCH ×4 (08:47→20:59)
[2018-10-27] MEDS: amLODIPine 10 MG TAB PO SCH (08:47)
[2018-10-27] MEDS: DOCUSATE SODIUM 100 MG CAP PO SCH ×2 (08:47→21:00)
[2018-10-27] MEDS: METOPROLOL TARTRATE 100 MG TAB PO SCH ×2 (08:47→21:01)
[2018-10-27] MEDS: KCL 40MEQ IN D5/0.45NS 1000ML 1,000 ML IV SCH ×2 (08:48→21:02)
[2018-10-27] MEDS: FLUTICASONE PROP 0.05% NASAL SPRAY 16 GM (FLONASE) NARES SCH ×2 (08:53→21:01)
[2018-10-27] MEDS: PREPARATION H SUPP (HEMORRHOID) PR SCH ×2 (08:53→20:59)
[2018-10-27 10:00] VITALS: BP 145/72
[2018-10-27 14:00] VITALS: BP 131/63
[2018-10-27 18:00] VITALS: BP 145/85
[2018-10-27] MEDS: MAALOX 30 ML SUSP *UDC PO PRN (18:33)
--- NOTE | 2018-10-27 19:07 | IPNPDOC ---
Date Seen The patient was seen on 10/27/18. Progress Note SUBJECTIVE: Patient reports some mild improvement in her symptoms. She tells me she is tolerating a full liquid diet but feels quite full and nauseous after taking it and and as such she has not taken a significant amount and. She tells me she only one quarter of her dinner last evening otherwise patient denies chest pain, shortness breath, nausea, vomiting, fevers, chills OBJECTIVE PHYSICAL EXAMINATION: VITAL SIGNS: Please see below. GENERAL: Pleasant frail elderly woman sitting up in bed awake alert speaking in complete sentences no acute distress HEENT: Moist mucous membranes no elevation and CVP CARDIOVASCULAR: S1 S2 regular no additional heart sounds appreciated. RESPIRATORY: Clear to auscultation bilaterally. ABDOMINAL: Bowel sounds present abdomen soft and nontender, no distention EXTREMITIES: No clubbing cyanosis or edema NEUROLOGICAL: Spontaneously moves all 4 extremities cranial 2 through 12 grossly intact no gross focal deficits appreciated PSYCHOLOGICAL: Appropriate LABORATORY DATA, MICROBIOLOGY: Please see below. IMAGING STUDIES: Abdominal x-ray 10/26/2018:There are multiple colonic air fluid levels noted consistent with the history of enteritis. No large or small bowel dilation seen. Postoperative changes noted. Hiatal hernia CT abdomen and pelvis 10/24/2018:1. The patient is status post cholecystectomy. 2. Bibasilar atelectasis or infiltrates and small bilateral pleural effusions. 3. The patient is status post hysterectomy. 4. There are several dilated loops of small intestine in the mid abdomen. The number of dilated loops is decreased compared to the previous study. There is bowel wall thickening of loops of mid and distal small intestine consistent with edema or ischemia. ASSESSMENT AND PLAN: This is a 89-year-old female with bowel obstruction. PROBLEMS: 1. Small bowel obstruction: General surgery help is greatly appreciated. She appears to be intermittently tolerating a full liquid diet. Ensure is been added I did encourage her to use today.She notes progressive improvement in symptoms as such will encourage to ambulate and be active in hopes that with supportive measures she will continue to improve. Continue with IV pain medication as well as IV fluids. Continue with simethicone as well as Colace 2. New onset Afib: Patient only on ASA 81 at this time, will attempt to avoid surgery in this elderly patient if at all possible. rate controlled with metoprolol. 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 4. Degenerative disc disease: Stable continue with IV pain medication for the time bein. Anemia 6. Hypertension: Continue with lisinopril and amlodipine and metoprolol 7. Hypokalemia: Resolved continue to monitor she continues on potassium supplementation 8. Insomnia: Continue with Rozerem 9. Urinary tract infection: Urinalysis was unremarkable she does not complain of symptoms today, culture was positive for pansensitive Escherichia coli greater than 100,000 colony-forming units. For now continue to monitor DVT prophylaxis: Teds and sequentials DISPOSITION: Pending clinical improvement. VS, I&O, 24H, Fishbone Vital Signs/I&O Vital Signs Date Time Temp Pulse Resp B/P (MAP) Pulse Ox O2 Delivery O2 Flow Rate FiO2 10/27/18 14:00 97.6 83 20 131/63 (85) 97 I&O- Last 24 Hours up to 6 AM 10/27/18 06:00 Intake Total 2160 ml Output Total 400 ml Balance 1760 ml Laboratory Data 24H LABS Laboratory Tests 2 10/26/18 19:02: Clostridium difficile [id number] PRESUMPTIVE NEGATIVE, Clostridium difficile Toxin (PCR) NEGATIVE 10/27/18 05:48: Nucleated Red Blood Cells % (auto) 0.0, Anion Gap 7L, Glomerular Filtration Rate > 60.0, Blood Urea Nitrogen 4L, Creatinine 0.60, Sodium Level 139, Potassium Level 3.9#, Chloride Level 104, Carbon Dioxide Level 28, Calcium Level 8.1L, Aspartate Amino Transf (AST/SGOT) 24, Alanine Aminotransferase (ALT/SGPT) 21, Alkaline Phosphatase 89, Total Bilirubin 0.2#, Total Protein 6.1L, Albumin 2.9L, Albumin/Globulin Ratio 0.91L CBC/BMP Laboratory Tests 10/27/18 05:48 Red Blood Count 3.83 L, Mean Corpuscular Volume 86.2, Mean Corpuscular Hemoglobin 26.1 L, Mean Corpuscular Hemoglobin Concent 30.3 L, Red Cell Dist ribution Width 17.4 H, Calcium Level 8.1 L, Aspartate Amino Transf (AST/SGOT) 24, Alanine Aminotransferase (ALT/SGPT) 21, Alkaline Phosphatase 89, Total Bilirubin 0.2 #, Total Protein 6.1 L, Albumin 2.9 L Microbiology Microbiology 10/19/18 Blood Culture - Final, Complete NO GROWTH AFTER 5 DAYS 10/19/18 Blood Culture - Final, Complete NO GROWTH AFTER 5 DAYS 10/19/18 Urine Culture - Final, Complete Escherichia Coli NIKKI AVINA MD Oct 27, 2018 19:07
[2018-10-27] MEDS: RAMELTEON 8 MG TAB (ROZEREM) PO PRN (21:00)
[2018-10-27 22:00] VITALS: BP 162/79
[2018-10-28 02:00] VITALS: BP 166/80
[2018-10-28] MEDS: traMADol 50 MG TAB PO PRN ×2 (04:31→15:54)
[2018-10-28 06:00] VITALS: BP 178/99
[2018-10-28] MEDS: SIMETHICONE 80 MG CHEW TAB PO SCH ×4 (08:24→20:23)
[2018-10-28] MEDS: amLODIPine 10 MG TAB PO SCH (08:25)
[2018-10-28] MEDS: DOCUSATE SODIUM 100 MG CAP PO SCH ×2 (08:25→20:22)
[2018-10-28] MEDS: ASPIRIN 81 MG ENTERIC TAB PO SCH ×2 (08:25→20:22)
[2018-10-28] MEDS: METOPROLOL TARTRATE 100 MG TAB PO SCH ×2 (08:25→20:23)
[2018-10-28] MEDS: LISINOPRIL 40 MG TAB PO SCH (08:25)
[2018-10-28] MEDS: LACTOBACILLUS ACIDOPHILUS CAP (BACID) PO SCH ×4 (08:25→20:22)
[2018-10-28] MEDS: FLUTICASONE PROP 0.05% NASAL SPRAY 16 GM (FLONASE) NARES SCH ×2 (08:25→20:24)
[2018-10-28] MEDS: PREPARATION H SUPP (HEMORRHOID) PR SCH ×2 (08:28→20:23)
[2018-10-28 10:00] VITALS: BP 167/75
[2018-10-28 11:06] LABS: BLOOD UREA NITROGEN 6 MG/DL (7-18); CALCIUM LEVEL 8.3 MG/DL (8.8-10.2); CARBON DIOXIDE LEVEL 24 MEQ/L (21-32); CHLORIDE LEVEL 101 MEQ/L (98-107); CREATININE FOR GFR 0.55 MG/DL (0.55-1.30); GLOMERULAR FILTRATION RATE > 60.0 (>32); GLUCOSE, FASTING 133 MG/DL (70-100); POTASSIUM SERUM 4.4 MEQ/L (3.5-5.1); SODIUM LEVEL 134 MEQ/L (136-145)
[2018-10-28 11:41] LABS: HEMATOCRIT 35.8 % (36.0-47.0); HEMOGLOBIN 10.8 g/dl (12.0-15.5); MEAN CORPUSCULAR HEMOGLOBIN 26.2 pg (27.0-33.0); MEAN CORPUSCULAR HGB CONC 30.2 g/dl (32.0-36.5); MEAN CORPUSCULAR VOLUME 86.7 fl (80.0-96.0); PLATELET COUNT, AUTOMATED 290 10^3/uL (150-450); RED BLOOD COUNT 4.13 10^6/uL (4.00-5.40); WHITE BLOOD COUNT 12.4 10^3/uL (4.0-10.0)
[2018-10-28 14:00] VITALS: BP 140/88
[2018-10-28 18:00] VITALS: BP 142/80
--- NOTE | 2018-10-28 18:56 | IPNPDOC ---
Date Seen The patient was seen on 10/28/18. Progress Note SUBJECTIVE: Patient reports continued nausea with dietary intake. She tells me she is tolerating a full liquid diet otherwise patient denies chest pain, shortness breath, vomiting, fevers, chills OBJECTIVE PHYSICAL EXAMINATION: VITAL SIGNS: Please see below. GENERAL: Pleasant frail elderly woman sitting up in bed awake alert speaking in complete sentences no acute distress. The patient is accompanied by her daughter HEENT: Moist mucous membranes no elevation and CVP CARDIOVASCULAR: S1 S2 regular no additional heart sounds appreciated. RESPIRATORY: Clear to auscultation bilaterally. ABDOMINAL: Bowel sounds present abdomen soft and nontender, no distention EXTREMITIES: No clubbing cyanosis or edema NEUROLOGICAL: Spontaneously moves all 4 extremities cranial 2 through 12 grossly intact no gross focal deficits appreciated PSYCHOLOGICAL: Appropriate and unchanged LABORATORY DATA, MICROBIOLOGY: Please see below. IMAGING STUDIES: Abdominal x-ray 10/26/2018:There are multiple colonic air fluid levels noted consistent with the history of enteritis. No large or small bowel dilation seen. Postoperative changes noted. Hiatal hernia CT abdomen and pelvis 10/24/2018:1. The patient is status post cholecystectomy. 2. Bibasilar atelectasis or infiltrates and small bilateral pleural effusions. 3. The patient is status post hysterectomy. 4. There are several dilated loops of small intestine in the mid abdomen. The number of dilated loops is decreased compared to the previous study. There is bowel wall thickening of loops of mid and distal small intestine consistent with edema or ischemia. ASSESSMENT AND PLAN: This is a 89-year-old female with bowel obstruction. PROBLEMS: 1. Small bowel obstruction: General surgery help is greatly appreciated. I did discuss with surgery this morning the plan is to advance her to a regular diet and see how she does, we will also check a calorie count in a chair she is getting adequate nutrition. It appears as though things are resolving and would like to treat her as supportively as possible and avoid surgery if at all possible Continue with IV pain medication as well as IV fluids. Continue with simethicone as well as Colace. It is certainly possible that her obstruction may be related to him metastatic melanoma however this is merely a suspicion 2. New onset Afib: Patient only on ASA 81 at this time, will attempt to avoid surgery in this elderly patient if at all possible. rate controlled with metoprolol. The patient reportedly had significant bleeding after her melanoma biopsy 3. Nasal sinus melanoma: Outpatient follow-up at [facility] in [place]. I did have a lengthy conversation with the patient's daughter who was bedside and the patient and answered all questions to their satisfaction, her diagnosis is quite concerning and prognosis quite poor. They have an appointment at [facility] on Friday my goal is to get her well enough to be discharged to make it to that appointment 4. Degenerative disc disease: Stable continue with IV pain medication for the time bein. Anemia: Stable continue to monitor a symptomatic 6. Hypertension: Continue with lisinopril and amlodipine and metoprolol 7. Hypokalemia: Resolved continue to monitor she continues on potassium supplementation 8. Insomnia: Continue with Rozerem 9. Urinary tract infection: Urinalysis was unremarkable she does not complain of symptoms, culture was positive for pansensitive Escherichia coli greater than 100,000 colony-forming units. For now continue to monitor DVT prophylaxis: Teds and sequentials DISPOSITION: Pending clinical improvement. VS, I&O, 24H, [facility] Vital Signs/I&O Vital Signs Date Time Temp Pulse Resp B/P (MAP) Pulse Ox O2 Delivery O2 Flow Rate FiO2 10/28/18 18:00 97.9 82 20 142/80 (100) 94 I&O- Last 24 Hours up to 6 AM 10/28/18 06:00 Intake Total 1620 ml Output Total 1875 ml Balance -255 ml Laboratory Data 24H LABS Laboratory Tests 2 10/28/18 09:45: Anion Gap 9, Glomerular Filtration Rate > 60.0, Blood Urea Nitrogen 6L, C reatinine 0.55, Sodium Level 134L, Potassium Level 4.4, Chloride Level 101, Carbon Dioxide Level 24, Calcium Level 8.3L 10/28/18 10:31: Nucleated Red Blood Cells % (auto) 0.0 CBC/BMP Laboratory Tests 10/28/18 09:45 Calcium Level 8.3 L 10/28/18 10:31 Red Blood Count 4.13, Mean Corpuscular Volume 86.7, Mean Corpuscular Hemoglobin 26.2 L, Mean Corpuscular Hemoglobin Concent 30.2 L, Red Cell Distribution Width 17.2 H Microbiology Microbiology 10/19/18 Blood Culture - Final, Complete NO GROWTH AFTER 5 DAYS 10/19/18 Blood Culture - Final, Complete NO GROWTH AFTER 5 DAYS 10/19/18 Urine Culture - Final, Complete Escherichia Coli NIKKI AVINA MD Oct 28, 2018 18:56
[2018-10-28 22:00] VITALS: BP 158/79
--- NOTE | 2018-10-28 22:11 | IPN ---
DATE: 10/27/2018 The patient overall seems to be stable at this point. Unfortunately, it is quite difficult to assess how she is doing from a GI standpoint. She is quite vague about tolerating liquids but seems to be doing well. I have asked her if she wants to progress her diet, but she states that she has been doing okay with her clear liquids. When I started her on some full liquids yesterday she seemed to tolerate the full liquids. She likes puddings. She is still having bowel movements. No bloody bowel movements. Her abdomen is soft, nontender, nondistended. IMPRESSION AND PLAN: The patient has continued making some slow progressive improvement. Will add some Ensure for her diet to see if we can get some calories in her. Otherwise, I would recommended that we still continue very slow progression of her diet. Clinically she seems to have resolution of obstructive picture, but now she has some inflammation in the distal small bowel as well. It seems a different presentation of her bowel obstruction or indeed might actually just be once this area of obstruction had resolved there was still some ecchymosis or edema within that obstructed segment that is slow to resolve at this point. In any case, will continue her on the whole liquids today and will see how she does tomorrow.
--- NOTE | 2018-10-28 22:38 | IPN ---
DATE: 10/28/2018 Patient overall seems to be doing relatively well with the full liquid diet and would like to have regular food. I have instructed her that she can slowly progress on her diet at this point. Her abdomen is otherwise soft, nontender, nondistended. IMPRESSION AND PLAN: The patient has some resolution of her symptoms and continues to make some slow but impressive improvement. She had two bowel movements yesterday and continues with good urine output. We will see how she does with the regular diet and we will see how she does with occupational therapy (OT), physical therapy (PT) to get her stronger for eventual discharge to home.
[2018-10-29 02:00] VITALS: BP 162/80
[2018-10-29] MEDS: ACETAMINOPHEN TAB 650MG DOSE (2X325MG) PO PRN ×2 (04:49→20:36)
[2018-10-29 06:00] VITALS: BP 135/85
[2018-10-29 06:21] LABS: HEMATOCRIT 34.1 % (36.0-47.0); HEMOGLOBIN 10.4 g/dl (12.0-15.5); MEAN CORPUSCULAR HEMOGLOBIN 25.5 pg (27.0-33.0); MEAN CORPUSCULAR HGB CONC 30.5 g/dl (32.0-36.5); MEAN CORPUSCULAR VOLUME 83.6 fl (80.0-96.0); PLATELET COUNT, AUTOMATED 248 10^3/uL (150-450); RED BLOOD COUNT 4.08 10^6/uL (4.00-5.40)
[2018-10-29 06:39] LABS: BLOOD UREA NITROGEN 10 MG/DL (7-18); CALCIUM LEVEL 8.8 MG/DL (8.8-10.2); CARBON DIOXIDE LEVEL 28 MEQ/L (21-32); CHLORIDE LEVEL 100 MEQ/L (98-107); CREATININE FOR GFR 0.59 MG/DL (0.55-1.30); GLOMERULAR FILTRATION RATE > 60.0 (>32); GLUCOSE, FASTING 106 MG/DL (70-100); POTASSIUM SERUM 3.6 MEQ/L (3.5-5.1); SODIUM LEVEL 136 MEQ/L (136-145)
[2018-10-29] MEDS: ONDANSETRON 4MG/2ML VIAL (J2405) IV PRN (08:24)
[2018-10-29] MEDS: FLUTICASONE PROP 0.05% NASAL SPRAY 16 GM (FLONASE) NARES SCH ×2 (08:24→20:40)
[2018-10-29] MEDS: SIMETHICONE 80 MG CHEW TAB PO SCH ×4 (08:25→20:40)
[2018-10-29] MEDS: DOCUSATE SODIUM 100 MG CAP PO SCH ×2 (08:25→20:37)
[2018-10-29] MEDS: METOPROLOL TARTRATE 100 MG TAB PO SCH ×2 (08:25→20:39)
[2018-10-29] MEDS: LISINOPRIL 40 MG TAB PO SCH (08:26)
[2018-10-29] MEDS: ASPIRIN 81 MG ENTERIC TAB PO SCH ×2 (08:26→20:36)
[2018-10-29] MEDS: amLODIPine 10 MG TAB PO SCH (08:26)
[2018-10-29] MEDS: LACTOBACILLUS ACIDOPHILUS CAP (BACID) PO SCH ×4 (08:26→20:40)
[2018-10-29] MEDS: PREPARATION H SUPP (HEMORRHOID) PR SCH (08:26)
[2018-10-29] MEDS: ONDANSETRON 4 MG TAB (S0181) PO PRN ×2 (08:45→17:03)
[2018-10-29 10:00] VITALS: BP 156/74
--- NOTE | 2018-10-29 10:23 | IPN ---
DATE: 10/29/2018 The patient has been afebrile. Her white count has come down overnight. I am not sure if it was just a blip, but otherwise she states that she is doing okay. She is nibbling on food, but she still has some baseline nausea and I am wondering if she has some blood that is draining from this malignancy in her posterior oropharynx/nasopharynx area that is bleeding into the stomach causing some of her nausea. In any case from the standpoint of her abdomen, the bowel obstruction issue has resolved at this time and it may just be a slow but progression of her dietary issues over time. From a surgical standpoint no surgical intervention is necessary. I would continue to encourage her p.o. intake and surgically she can be discharged from my standpoint with followup for ENT evaluation and oncology evaluation.
[2018-10-29 14:00] VITALS: BP 165/77
--- NOTE | 2018-10-29 16:48 | IPNPDOC ---
Date Seen The patient was seen on 10/29/18. Progress Note SUBJECTIVE: Patient complains of nausea this AM, but otherwise states she ate well last night. Patient denies chest pain, shortness breath, vomiting, fevers, chills. She is very hard of hearing OBJECTIVE PHYSICAL EXAMINATION: VITAL SIGNS: Please see below. GENERAL: Pleasant frail elderly woman sitting up in bed awake alert speaking in complete sentences no acute distress. The patient is accompanied by her daughter. HEENT: Moist mucous membranes no elevation and CVP CARDIOVASCULAR: S1 S2 regular no additional heart sounds RESPIRATORY: Clear to auscultation bilaterally. ABDOMINAL: Bowel sounds present abdomen soft and nontender, no distention. EXTREMITIES: No clubbing cyanosis or edema NEUROLOGICAL: Spontaneously moves all 4 extremities cranial 2 through 12 grossly intact PSYCHOLOGICAL: Appropriate LABORATORY DATA, MICROBIOLOGY: Please see below. IMAGING STUDIES: Abdominal x-ray 10/26/2018:There are multiple colonic air fluid levels noted consistent with the history of enteritis. No large or small bowel dilation seen. Postoperative changes noted. Hiatal hernia CT abdomen and pelvis 10/24/2018:1. The patient is status post cholecystectomy. 2. Bibasilar atelectasis or infiltrates and small bilateral pleural effusions. 3. The patient is status post hysterectomy. 4. There are several dilated loops of small intestine in the mid abdomen. The number of dilated loops is decreased compared to the previous study. There is bowel wall thickening of loops of mid and distal small intestine consistent with edema or ischemia. ASSESSMENT AND PLAN: This is a 89-year-old female with bowel obstruction. PROBLEMS: 1. Small bowel obstruction: General surgery help is greatly appreciated. From the surgical perspective it appears to be essentially resolved she is having significant nausea this morning I will provide her with Zofran and monitored to ensure she is able to keep food down. There was some concern that she may have nausea related to postnasal drip versus postnasal slow bleed related to her malignant melanoma. I did speak with Dr. Francis who informed me that her proc edure and biopsy were quite complicated at this time I'll essentially necessary we are not planning any further interventions here at [facility] I did speak with the patient and her daughter have an appointment at [place] on Friday the plan is for possibly more tissue removal at that time. Continue with simethicone as well as Colace. It is certainly possible that her obstruction may be related to him metastatic melanoma however this is merely a suspicion. Additional tissue required for [id number] testing 2. New onset Afib: Patient only on ASA 81 at this time, will attempt to avoid surgery in this elderly patient if at all possible. rate controlled with metoprolol. The patient reportedly had significant bleeding after her melanoma biopsy 3. Nasal sinus melanoma: Outpatient follow-up at [facility] in [place]. I did have a lengthy conversation with the patient's daughter who was bedside and the patient and answered all questions to their satisfaction, her diagnosis is quite concerning and prognosis quite poor. They have an appointment at [facility] on Friday my goal is to get her well enough to be discharged to make it to that appointment 4. Degenerative disc disease: Stable continue with IV pain medication for the time bein. Anemia: Stable continue to monitor a symptomatic 6. Hypertension: Continue with lisinopril and amlodipine and metoprolol 7. Hypokalemia: Resolved continue to monitor she continues on potassium supplementation 8. Insomnia: Continue with Rozerem 9. Urinary tract infection: Urinalysis was unremarkable she does not complain of symptoms, culture was positive for pansensitive Escherichia coli greater than 100,000 colony-forming units. For now continue to monitor DVT prophylaxis: Teds and sequentials DISPOSITION: Likely home tomorrow, PFS cons placed for the establishment of home services VS, I&O, 24H, Fishbone Vital Signs/I&O Vital Signs Date Time Temp Pulse Resp B/P (MAP) Pulse Ox O2 Delivery O2 Flow Rate FiO2 10/29/18 14:00 97.1 81 20 165/77 (106) 95 I&O- Last 24 Hours up to 6 AM 10/29/18 06:00 Intake Total 1660 ml Output Total 2575 ml Balance -915 ml Laboratory Data 24H LABS Laboratory Tests 2 10/29/18 05:36: Nucleated Red Blood Cells % (auto) 0.0, Anion Gap 8, Glomerular Filtration Rate > 60.0, Blood Urea Nitrogen 10#, Creatinine 0.59, Sodium Level 136, Potassium Level 3.6, Chloride Level 100, Carbon Dioxide Level 28, Calcium Level 8.8 CBC/BMP Laboratory Tests 10/29/18 05:36 Red Blood Count 4.08, Mean Corpuscular Volume 83.6, Mean Corpuscular Hemoglobin 25.5 L, Mean Corpuscular Hemoglobin Concent 30.5 L, Red Cell Distribution Width 17.0 H, Calcium Level 8.8 Microbiology Microbiology 10/19/18 Blood Culture - Final, Complete NO GROWTH AFTER 5 DAYS 10/19/18 Blood Culture - Final, Complete NO GROWTH AFTER 5 DAYS 10/19/18 Urine Culture - Final, Complete Escherichia Coli NIKKI AVINA MD Oct 29, 2018 16:48
[2018-10-29] MEDS: traMADol 50 MG TAB PO PRN ×2 (17:05→22:08)
[2018-10-29 18:00] VITALS: BP 124/67
[2018-10-29] MEDS: RAMELTEON 8 MG TAB (ROZEREM) PO PRN (20:54)
[2018-10-29 22:00] VITALS: BP 166/82
[2018-10-30 02:00] VITALS: BP 157/81
[2018-10-30 06:00] VITALS: BP 146/77
[2018-10-30 06:03] LABS: HEMATOCRIT 31.4 % (36.0-47.0); HEMOGLOBIN 9.6 g/dl (12.0-15.5); MEAN CORPUSCULAR HEMOGLOBIN 25.1 pg (27.0-33.0); MEAN CORPUSCULAR HGB CONC 30.6 g/dl (32.0-36.5); MEAN CORPUSCULAR VOLUME 82.2 fl (80.0-96.0); PLATELET COUNT, AUTOMATED 248 10^3/uL (150-450); RED BLOOD COUNT 3.82 10^6/uL (4.00-5.40); WHITE BLOOD COUNT 5.9 10^3/uL (4.0-10.0)
[2018-10-30 06:33] LABS: BLOOD UREA NITROGEN 14 MG/DL (7-18); CALCIUM LEVEL 8.1 MG/DL (8.8-10.2); CARBON DIOXIDE LEVEL 30 MEQ/L (21-32); CHLORIDE LEVEL 104 MEQ/L (98-107); CREATININE FOR GFR 0.64 MG/DL (0.55-1.30); GLOMERULAR FILTRATION RATE > 60.0 (>32); GLUCOSE, FASTING 96 MG/DL (70-100); POTASSIUM SERUM 3.7 MEQ/L (3.5-5.1); SODIUM LEVEL 140 MEQ/L (136-145)
[2018-10-30 08:10] VITALS: BP 146/77
[2018-10-30] MEDS: amLODIPine 10 MG TAB PO SCH (08:10)
[2018-10-30] MEDS: LACTOBACILLUS ACIDOPHILUS CAP (BACID) PO SCH ×2 (08:10→12:58)
[2018-10-30] MEDS: LISINOPRIL 40 MG TAB PO SCH (08:10)
[2018-10-30] MEDS: ASPIRIN 81 MG ENTERIC TAB PO SCH (08:10)
[2018-10-30] MEDS: SIMETHICONE 80 MG CHEW TAB PO SCH ×2 (08:10→12:58)
[2018-10-30] MEDS: METOPROLOL TARTRATE 100 MG TAB PO SCH (08:10)
[2018-10-30] MEDS: FLUTICASONE PROP 0.05% NASAL SPRAY 16 GM (FLONASE) NARES SCH (08:11)
[2018-10-30] MEDS: DOCUSATE SODIUM 100 MG CAP PO SCH (08:11)
[2018-10-30] MEDS ORDERED: ASPI81TAEC PO ×2 (12:55→13:45)
[2018-10-30] MEDS ORDERED: ONDA4TAB5 PO (12:55)
[2018-10-30] MEDS ORDERED: SIME80TA PO (12:55)
[2018-10-30] MEDS ORDERED: LOPR1TAB7 PO ×2 (12:55→13:45)
--- NOTE | 2018-10-30 16:45 | DS.PDOC ---
Discharge Summary General Date of Admission Oct 19, 2018 at 14:37 Date of Discharge 10/30/2018 Discharge Summary DISCHARGE DIAGNOSIS:Small bowel obstruction SECONDARY DIAGNOSIS: 1. 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 Anemia 5. Postnasal drip 6. Hypertension 7. Hypokalemia 8. Insomnia 9. Abnormal UA PROCEDURES PERFORMED DURING STAY: None. CONSULTANTS: General surgery, ENT HOSPITAL COURSE: Patient is an 88-year-old female who was seen in the outpatient setting by ENT after having some facial trauma. She had significant obstruction to her right nasal passage for quite some time the mass was a vascular doctor a brisk did complete a biopsy which did return positive for malignant melanoma. She subsequently developed small bowel obstruction prompting her hospitalization at this time. She was seen by general surgery she did not tolerate NG tube placement secondary to the complication of her nasal passageway. She was treated supportively with observation and in general surgery input. She progressively point she was able to return to a regular diet with minimal nausea and maintain adequate nutrition. At this time she is medically stable for discharge home. The plans were to follow closely with oncology at [facility] in [place] this coming Friday. Additional testing is required and to determine prognostic markers we did consider completing these biopsies here however she is only scheduled and [facility] did report her initial biopsy was complicated and would be send out test for us whereas these to be completed at [facility]. Lengthy discussions were had with both ENT and pathology and the patient as well as family. All questions answered to their satisfaction. The patient did develop new onset atrial fib was while hospitalized, she did not tolerate anticoagulation secondary to bleeding from her malignancy in her nose. And as such she is only tolerating aspirin at this time she is rate controlled with metoprolol. DISCHARGE MEDICATIONS: Please see below. ALLERGIES: Please see below. VITAL SIGNS: Please see below. GENERAL: Pleasant frail elderly woman sitting up in bed awake alert speaking in complete sentences no acute distress. The patient is accompanied by her daughter. HEENT: Moist mucous membranes no elevation and CVP, superficial lesion on her right nasal bridge approximately 1 cm in length CARDIOVASCULAR: S1 S2 regular no additional heart sounds RESPIRATORY: Clear to auscultation bilaterally. ABDOMINAL: Bowel sounds present abdomen soft and nontender, no distention. EXTREMITIES: No clubbing cyanosis or edema NEUROLOGICAL: Spontaneously moves all 4 extremities cranial 2 through 12 grossly intact PSYCHOLOGICAL: Appropriate LABORATORY DATA, MICROBIOLOGY: Please see below. IMAGING STUDIES: Abdominal x-ray 10/26/2018:There are multiple colonic air fluid levels noted consistent with the history of enteritis. No large or small bowel dilation seen. Postoperative changes noted. Hiatal hernia CT abdomen and pelvis 10/24/2018:1. The patient is status post cholecystectomy. 2. Bibasilar atelectasis or infiltrates and small bilateral pleural effusions. 3. The patient is status post hysterectomy. 4. There are several dilated loops of small intestine in the mid abdomen. The number of dilated loops is decreased compared to the previous study. There is bowel wall thickening of loops of mid and distal small intestine consistent with edema or ischemia. ASSESSMENT AND PLAN: This is a 89-year-old female with bowel obstruction. PROBLEMS: 1. Small bowel obstruction: General surgery help is greatly appreciated. From the surgical perspective it appears to be essentially resolved and stable for discharge home from their perspective. Given that she still has some residual nausea with eating I will provide her with Zofran. There is concern that her small bowel obstruction may be related to metastatic melanoma, there is certainly concern that her melanoma in her nose is resulting in a postnasal drip which may be adding to her nausea as well. At this time I will withhold further treatments for postnasal drip or any nasal sprays given the vascular nature to her malignancy in her nose and do not want to risk complicating or delaying her surgery in any way. We'll defer to [facility] oncology for further management and interventions as well as further biopsies. Further testing is required and further tissue required in order to determine prognostic factors. At this time she is tolerating a diet general surgery help is greatly appreciated 2. New onset Afib: Patient only on ASA 81 at this time, she did not tolerate anticoagulation with a heparin drip rate controlled with metoprolol. The patient reportedly had significant bleeding after her melanoma biopsy. 3. Nasal sinus melanoma: Outpatient follow-up at [facility] in [place]. I did have a lengthy conversation with the patient's daughter who was bedside and the patient and answered all questions to their satisfaction, her diagnosis is quite concerning and prognosis quite poor. They have an appointment at [facility] on Friday my goal is to get her well enough to be discharged to make it to that appointment. ENT as well as pathology were involved during her care during this visit 4. Degenerative disc disease: Stable and controlled continue with pain medication 5. Anemia: Stable, continue to monitor, asymptomatic 6. Hypertension: Continue with lisinopril and amlodipine and metoprolol 7. Hypokalemia: Resolved continue to monitor she continues on potassium suppl ementation 8. Insomnia: Continue with Rozerem while hospitalized 9. Urinary tract infection: Urinalysis was unremarkable she does not complain of symptoms, culture was positive for pansensitive Escherichia coli greater than 100,000 colony-forming units. For now continue to monitor she did not receive any treatment while hospitalized DVT prophylaxis: Teds and sequentials DISPOSITION: Home with services DISCHARGE CONDITION: Improved and Stable. PROGNOSIS: Guarded FOLLOW UP: [facility] on Friday, PCP within 7 days ENT when necessary ACTIVITY: As prior to admission. DIET: As prior to admission TIME SPENT ON DISCHARGE: 50 minutes Vital Signs/I&Os Vital Signs Date Time Temp Pulse Resp B/P (MAP) Pulse Ox O2 Delivery O2 Flow Rate FiO2 10/30/18 08:10 80 146/77 10/30/18 06:00 97.6 16 94 I&O- Last 24 Hours up to 6 AM 10/30/18 06:00 Intake Total 790 ml Output Total 1250 ml Balance -460 ml Laboratory Data Labs 24H Laboratory Tests 2 10/30/18 05:33: Nucleated Red Blood Cells % (auto) 0.0, Anion Gap 6L, Glomerular Filtration Rate > 60.0, Blood Urea Nitrogen 14, Creatinine 0.64, Sodium Level 140, Potassium Level 3.7, Chloride Level 104, Carbon Dioxide Level 30, Calcium Level 8.1L CBC/BMP Laboratory Tests 10/30/18 05:33 Red Blood Count 3.82 L, Mean Corpuscular Volume 82.2, Mean Corpuscular Hemoglobin 25.1 L, Mean Corpuscular Hemoglobin Concent 30.6 L, Red Cell Distribution Width 17.0 H, Calcium Level 8.1 L Discharge Medications Scheduled Amlodipine Besylate (Amlodipine Besylate) 10 Mg Tab, 10 MG PO DAILY, (Reported) Aspirin (Aspirin EC) 81 Mg Tablet.dr, 81 MG PO BID Furosemide (Furosemide) 40 Mg Tablet, 40 MG PO DAILY, (Reported) Lisinopril (Lisinopril) 20 Mg Tab, 20 MG PO DAILY, (Reported) Metoprolol Tartrate (Lopressor) 100 Mg Tablet, 100 MG PO BID Mirtazapine (Remeron) 15 Mg Tablet, 15 MG PO QHS, (Reported) Pantoprazole Sodium (Pantoprazole Sodium) 40 Mg Tablet.dr, 40 MG PO BID, (Reported) Saccharomyces Boulardii (Florastor) 250 Mg Cap, 250 MG PO BID, (Reported) Tramadol HCl (Tramadol HCl) 50 Mg Tablet, 50 MG PO TID, (Reported) Scheduled PRN Acetaminophen with Codeine (Tylenol with Codeine #3 Tablet) 1 Each Tablet, 1 TAB PO Q4H PRN for PAIN, (Reported) Ondansetron HCl (Ondansetron HCl) 4 Mg Tablet, 4 MG PO Q4HP PRN for NAUSEA OR VOMITING Simethicone (Simethicone) 80 Mg Tab.chew, 120 MG PO Q6HP PRN for NAUSEA Allergies Coded Allergies: Penicillins (Verified Adverse Reaction, Mild, N/V, 10/19/18) "REALLY SICK" ciprofloxacin (Verified Adverse Reaction, Mild, N/V, 10/19/18) "REALLY SICK" NIKKI AVINA MD Oct 30, 2018 16:45
== END 2018-10-30 13:53 | disposition home health service (06) | DRG 389 ==
LOC: M ED 10:45 → M ED INP 14:37 → M MSPAV 16:52
PROVIDERS: ADMIT Internal Medicine; ATTEND Internal Medicine
DX: K56.690 Other partial intestinal obstruction (principal); E46 Unspecified protein-calorie malnutrition; N39.0 Urinary tract infection, site not specified; C43.39 Malignant melanoma of other parts of face; I48.91 Unspecified atrial fibrillation; I10 Essential (primary) hypertension; K21.9 Gastro-esophageal reflux disease without esophagitis; K52.9 Noninfective gastroenteritis and colitis, unspecified; E87.6 Hypokalemia; B96.20 Unspecified Escherichia coli [E. coli] as the cause of diseases classified elsewhere; K57.30 Diverticulosis of large intestine without perforation or abscess without bleeding; Z90.49 Acquired absence of other specified parts of digestive tract; Z79.899 Other long term (current) drug therapy; Z79.891 Long term (current) use of opiate analgesic; Z88.0 Allergy status to penicillin; Z88.1 Allergy status to other antibiotic agents

== ENCOUNTER → 2019-02-17 | Outpatient (CLI) | payer MEDICARE, OTHER ==
[~2019-02-17] MED LIST changes: +AFRI0.058; +ASPI81TAEC PO; -BISO5TAB5 PO; +BISO5TAB9 PO; +FURO40TA2 PO; +LOPR1TAB7 PO; +ONDA4TAB5 PO; +PANT-23 PO; +REME15TA PO; +SIME80TA PO; +TYLETAB14 PO
[2019-02-17 18:21] LABS: CREATININE FOR GFR 0.94 MG/DL (0.55-1.30); GLOMERULAR FILTRATION RATE 59.7 (>32)
== END ==
LOC: M LAB 17:13
DX: C30.0 Malignant neoplasm of nasal cavity (principal)

== ENCOUNTER → 2019-02-25 | Outpatient (CLI) | payer MEDICARE, OTHER ==
[~2019-02-25] MED LIST changes: +PROHANCE 279.3MG/ML 5ML VIAL (A9576) As Ordered ONE
--- NOTE | 2019-02-26 09:01 | REP ---
MRI brain without and with IV gadolinium: History: Sinonasal mucosal melanoma. Comparison brain CT study September 29, 2018. Comparison MRI orbits October 20, 2018. Technique: Axial and sagittal imaging planes are utilized for T1 and T2-weighted scans. Sequences include spin-echo, fast spin echo, FLAIR, and diffusion weighted sequences. Gadolinium enhancement dose is 6 mL of intravenous ProHance. Findings: Previous study showed a large, 3.3 cm, right nasal/right maxillary sinus mass with mucosal changes and filling of most of the paranasal sinuses. Today's MRI images demonstrate significant improvement. There is still mass effect in the right nasal cavity. There is mucosal thickening and some fluid in the right maxillary sinus and right ethmoid sinuses although this is improved. There is a large amount of fluid in the frontal sinuses bilaterally. There is no evidence of intracranial extension. Suprasellar cistern is intact. There is no abnormality beyond the cribriform plate in the inferior frontal lobe region. No intraorbital lesion is appreciated. There is moderate generalized volume loss. No intracranial mass lesion is observed. No abnormal intracranial contrast enhancement is appreciated. There is no evidence of intracranial hemorrhage, acute infarction, or midline shift. There are fairly extensive small vessel atherosclerotic changes in the periventricular white matter bilaterally. Impression: Improved appearance of the right sinonasal mass effect and associated paranasal sinus filling. No acute intracranial abnormality. No comparison brain MRI study. Electronically Signed by Javier Starkey MD 02/26/2019 09:26 A
== END ==
LOC: M RAD 16:43
DX: C30.0 Malignant neoplasm of nasal cavity (principal)
CPT/HCPCS: 70553; A9576

== ENCOUNTER → 2019-12-21 | Outpatient (CLI) | payer MEDICARE, OTHER ==
[~2019-12-21] MED LIST changes: -AMLO10TA5 PO; +AMLO1TAB25 PO; +BISO5TAB14 PO; -BISO5TAB9 PO; +ELIQ2.5T PO; +LIDO4CRE4 EXT; +ONDA-83 PO; -ONDA4TAB5 PO; +OXYC1TAB23 PO; +PANT40TA29 PO; -PANT40TA3 PO; -PROHANCE 279.3MG/ML 5ML VIAL (A9576) As Ordered ONE
--- NOTE | 2020-02-10 10:52 | REP ---
WHOLE BODY RADIONUCLIDE BONE SCAN: HISTORY: Low back pain. History of malignant melanoma. Chronic pain. COMPARISON: No comparison bone scan. FINDINGS: There is a moderate levoconvex scoliosis in the thoracolumbar spine. There is uptake in bilateral kidneys. There is evidence of hydronephrosis affecting the right kidney. There is a focus of increased uptake in the distal diaphysis of the left femur, which is somewhat suspicious. There is a focus of increased uptake in the humeral head on the left as well. There are foci of increased update in the left side of the T12 vertebral body, in the right upper sacrum and possibly the right side of the L1 vertebral body suspicious for metastatic disease. There is a horizontal area of increased uptake in the sacrococcygeal junction, which could be a metastatic lesion or since it is linear, a healing fracture. 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 Hydronephrosis right kidney. Prominent scoliosis in the thoracolumbar spine. There is arthritic uptake in each wrist and in the left knee. MTDD
== END ==
LOC: M RAD 10:28
PROVIDERS: ATTEND Family Medicine
DX: N13.30 Unspecified hydronephrosis (principal); M41.85 Other forms of scoliosis, thoracolumbar region; C43.9 Malignant melanoma of skin, unspecified; G89.29 Other chronic pain